=== PATIENT | male | born 1960 | race Caucasian/White ===

== ENCOUNTER 2017-02-10 09:25 | Emergency (ER) | payer BC ==
[2017-02-10 09:34] VITALS: BP 124/76; PULSE 79; RESP 20; TEMP 97.5
--- NOTE | 2017-02-10 10:17 | XR ---
Right knee HISTORY: Right knee pain 3 views of the right knee, no comparisons There is marginal spurring is present especially in the medial compartment and patellofemoral joint w ith joint space loss in the 3 compartments. Alignment and bone mineralization are maintained. Suprapa tellar increased density suggests joint effusion. IMPRESSION: Osteoarthritis.
--- NOTE | 2017-02-10 10:23 | ED ---
Lower Extremity Injury HPI - General Chief Complaint: Extremity Injury, Lower Stated Complaint: rt knee pain Time Seen by Provider: 02/10/17 09:36 Source: patient, RN notes reviewed Mode of arrival: ambulatory Limitations: no limitations - History of Present Illness Initial Comments: 56-year-old male presents emergency Department chief complaint of right knee pain. 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 Patient states that there is minimal swelling states is just very achy states he's been taking ibuprofen 800 mg with minimal relief. Patient denies any redness, fever, chills. Patient states that he has not seen anybody for this injury and has no current orthopedic doctor. Patient offers no other complaints. - Related Data Home Medications Medication Instructions Recorded Confirmed Mirtazapine 30 mg PO HS 07/06/15 02/10/17 Omeprazole [PriLOSEC] 40 mg PO QAM 02/03/16 02/10/17 clonazePAM [KlonoPIN] 1 mg PO BID PRN 02/03/16 02/10/17 Buprenorphine HCl/Naloxone HCl 1 film SL DAILY 03/06/16 02/10/17 [Suboxone 2 mg-0.5 mg Sl Film] Baclofen 10 mg PO BID 02/10/17 02/10/17 Losartan Potassium 100 mg PO BID 02/10/17 02/10/17 Previous Rx's Medication Instructions Recorded Acetaminophen-Codeine 300-30mg 1 tab PO Q4H PRN #20 tablet 02/10/17 [Tylenol #3] methylPREDNISolone [Medrol Dose 4 mg PO DIRECTED #1 pack 02/10/17 Pack] Allergies Allergy/AdvReac Type Severity Reaction Status Date / Time naproxen sodium [From Aleve] Allergy Anaphylaxis Verified 02/10/17 10:05 venom-honey bee Allergy Anaphylaxis Verified 02/10/17 10:05 [bee venom (honey bee)] Review of Systems ROS Statement: Those systems with pertinent positive or pertinent negative responses have been documented in the HPI. ROS Other: All systems not noted in ROS Statement are negative. Past Medical History Past Medical History: COPD, Hypertension Additional Past Medical History / Comment(s): WARTS AROUND RECTUM,EPIGASTRIC PAIN, PAST HX OF COPD, STATES NO RECENT PROBLEMS SINCE QUIT SMOKING , back pain History of Any Multi-Drug Resistant Organisms: None Reported Past Surgical History: Cholecystectomy Additional Past Surgical History / Comment(s): left big toe surgery Past Anesthesia/Blood Transfusion Reactions: No Reported Reaction Past Psychological History: Anxiety, Depression Smoking Status: Former smoker Past Alcohol Use History: None Reported Past Drug Use History: None Reported - Past Family History Mother Family Medical History: Cancer Additional Family Medical History / Comment(s): THROAT Sister(s) Family Medical History: Cancer Additional Family Medical History / Comment(s): LUNG General Exam Limitations: no limitations General appearance: alert, in no apparent distress Head exam: Present: atraumatic, normocephalic, normal inspection Respiratory exam: Present: normal lung sounds bilaterally. Absent: respiratory distress, wheezes, rales, rhonchi, stridor Cardiovascular Exam: Present: regular rate, normal rhythm, normal heart sounds. Absent: systolic murmur, diastolic murmur, rubs, gallop, clicks Extremities exam: Present: other (Right knee there is minimal swelling no erythema no warmth neurovascular intact there is mild discomfort with range of motion mild tenderness over the patella region. Open lesions or sores.) Course Vital Signs 02/10/17 09:31 Temperature 97.5 F L Pulse Rate 79 Respiratory 20 Rate Blood Pressure 124/76 O2 Sat by Pulse 98 Oximetry Medical Decision Making - Medical Decision Making 56-year-old male presented for right knee pain. Patient has no acute injury on x-ray patient's symptoms were consistent with bursitis after kneeling on his knee. Patient be tried on a course of steroids, Tylenol according for pain control. He'll follow-up with orthopedics instrumentation and controls technician Dr. Haines return parameters were discussed. - Radiology Data Radiology results: report reviewed, image reviewed X-ray of the right knee shows no acute fracture or osseous lesion. Disposition Clinical Impression: Right knee pain, Bursitis of knee Disposition: HOME SELF-CARE Condition: Stable Instructions: Knee Pain (ED) Additional Instructions: Please return to the Emergency Department if symptoms worsen or any other concerns. Prescriptions: Acetaminophen-Codeine 300-30mg [Tylenol #3] 1 tab PO Q4H PRN #20 tablet PRN Reason: pain methylPREDNISolone [Medrol Dose Pack] 4 mg PO DIRECTED #1 pack Referrals: Damien Irwin DO [Primary Care Provider] - 1-2 days Time of Disposition: 10:23
== END 2017-02-10 10:27 | disposition home or self-care (01) ==
LOC: EC 09:25
DX: M70.51 Other bursitis of knee, right knee (principal); I10 Essential (primary) hypertension; F41.9 Anxiety disorder, unspecified; F32.9 Major depressive disorder, single episode, unspecified; Z87.891 Personal history of nicotine dependence; Z79.899 Other long term (current) drug therapy; Z88.6 Allergy status to analgesic agent; Z91.030 Bee allergy status; X50.1XXA Overexertion from prolonged static or awkward postures, initial encounter; Y92.69 Other specified industrial and construction area as the place of occurrence of the external cause; Y93.89 Activity, other specified
CPT/HCPCS: 99283

== ENCOUNTER 2017-06-15 09:26 | Emergency (ER) | payer BC, OTHER ==
[2017-06-15 09:30] VITALS: TEMP 97.9
[2017-06-15 10:27] VITALS: BP 109/70; PULSE 73; RESP 20
--- NOTE | 2017-06-15 10:44 | ED ---
General Adult HPI - General Chief complaint: Back Pain/Injury Stated complaint: Flank pain Time Seen by Provider: 06/15/17 09:45 Source: patient, RN notes reviewed Mode of arrival: ambulatory Limitations: no limitations - History of Present Illness Initial comments: Patient 56-year-old male who presents emergency room today with a chief complaint of possible shingles. He does admit that pain consistent with shingles that is had in the past. He admits that he feels it just on the right side. It is not bilateral. Patient states symptoms started last night. Patient denies any other complaints or symptoms. Patient denies any recent fever , chills, shortness of breath, chest pain, abdominal pain, nausea or vomiting, numbness or tingling, dysuria or hematuria, constipation or diarrhea, headaches or visual changes, or any other complaints. - Related Data Home Medications Medication Instructions Recorded Confirmed Mirtazapine 30 mg PO HS 07/06/15 06/15/17 Omeprazole [PriLOSEC] 40 mg PO QAM 02/03/16 06/15/17 clonazePAM [KlonoPIN] 1 mg PO BID PRN 02/03/16 06/15/17 Buprenorphine HCl/Naloxone HCl 1 film SL DAILY 03/06/16 06/15/17 [Suboxone 2 mg-0.5 mg Sl Film] Baclofen 10 mg PO BID PRN 02/10/17 06/15/17 Losartan Potassium 100 mg PO BID 02/10/17 06/15/17 Lisdexamfetamine Dimesylate 30 mg PO QAM 06/15/17 06/15/17 [Vyvanse] Previous Rx's Medication Instructions Recorded Acetaminophen-Codeine 300-30mg 1 each PO Q6H PRN #20 tablet 06/15/17 [Tylenol #3] predniSONE 50 mg PO DAILY #5 tab 06/15/17 valACYclovir HCL [Valtrex] 1,000 mg PO TID #21 tablet 06/15/17 Allergies Allergy/AdvReac Type Severity Reaction Status Date / Time naproxen sodium [From Aleve] Allergy Anaphylaxis Verified 06/15/17 09:48 venom-honey bee Allergy Anaphylaxis Verified 06/15/17 09:48 [bee venom (honey bee)] Review of Systems ROS Statement: Those systems with pertinent positive or pertinent negative responses have been documented in the HPI. ROS Other: All systems not noted in ROS Statement are negative. Past Medical History Past Medical History: COPD, Hypertension Additional Past Medical History / Comment(s): WARTS AROUND RECTUM,EPIGASTRIC PAIN, PAST HX OF COPD, STATES NO RECENT PROBLEMS SINCE QUIT SMOKING , back pain History of Any Multi-Drug Resistant Organisms: None Reported Past Surgical History: Cholecystectomy Additional Past Surgical History / Comment(s): left big toe surgery Past Anesthesia/Blood Transfusion Reactions: No Reported Reaction Past Psychological History: Anxiety, Depression Smoking Status: Former smoker Past Alcohol Use History: None Reported Past Drug Use History: None Reported - Past Family History Mother Family Medical History: Cancer Additional Family Medical History / Comment(s): THROAT Sister(s) Family Medical History: Cancer Additional Family Medical History / Comment(s): LUNG General Exam - General Exam Comments Initial Comments: General: The patient is awake and alert, in no distress, and does not appear acutely ill. Eye: Pupils are equal, round and reactive to light, extra-ocular movements are intact. No nystagmus. There is normal conjunctiva bilaterally. No signs of icterus. Ears, nose, mouth and throat: There are moist mucous membranes and no oral lesions. Neck: The neck is supple, there is no tenderness or JVD. Cardiovascular: There is a regular rate and rhythm. No murmur, rub or gallop is appreciated. Respiratory: Lungs are clear to auscultation, respirations are non-labored, breath sounds are equal. No wheezes, stridor, rales, or rhonchi. Musculoskeletal: Normal ROM, no tenderness. Strength 5/5. Sensation intact. Pulses equal bilaterally 2+. Neurological: A&O x 3. CN II-XII intact, There are no obvious motor or sensory deficits. Coordination appears grossly intact. Speech is normal. Skin: Skin is warm and dry and no rashes or lesions are noted. No rash at this time. Psychiatric: Cooperative, appropriate mood & affect, normal judgment. Limitations: no limitations Course Vital Signs 06/15/17 06/15/17 09:27 10:24 Temperature 97.9 F Pulse Rate 80 73 Respiratory 18 20 Rate Blood Pressure 121/63 109/70 O2 Sat by Pulse 97 96 Oximetry Medical Decision Making - Medical Decision Making Patient denies any other complaints or any other symptoms. He states this feels exactly like she was and he had in the past. He states symptoms started just last night. Patient will be started on antiviral, steroid. Given short prescription of pain medication advised follow-up the family doctor. Advised return if any symptoms increase worsen or for any other concerns. Disposition Clinical Impression: Back pain Disposition: HOME SELF-CARE Condition: Good Instructions: Shingles (ED) Additional Instructions: Please use medication as discussed. Please follow-up with family doctor in the next 2 days of symptoms have not improved. Please return to emergency room if the symptoms increase or worsen or for any other concerns. Prescriptions: Acetaminophen-Codeine 300-30mg [Tylenol #3] 1 each PO Q6H PRN #20 tablet PRN Reason: Pain predniSONE 50 mg PO DAILY #5 tab valACYclovir HCL [Valtrex] 1,000 mg PO TID #21 tablet Referrals: Damien Irwin DO [Primary Care Provider] - 1-2 days Time of Disposition: 10:44
== END 2017-06-15 10:54 | disposition home or self-care (01) ==
LOC: EC 09:26
DX: M54.9 Dorsalgia, unspecified (principal); I10 Essential (primary) hypertension; F32.9 Major depressive disorder, single episode, unspecified; Z87.891 Personal history of nicotine dependence; Z79.891 Long term (current) use of opiate analgesic; Z79.899 Other long term (current) drug therapy; Z88.6 Allergy status to analgesic agent; Z91.030 Bee allergy status
CPT/HCPCS: 99283

== ENCOUNTER 2017-10-06 02:42 | Emergency (ER) | payer OTHER ==
[2017-10-06 03:17] LABS: Appearance,Urine Clear (Clear); Bilirubin,Urine Negative (Negative); Blood,Urine Moderate (Negative); Color,Urine Light Yellow; Glucose,Urine (UA) Negative (Negative); Hyaline Casts,Urine 1 /lpf (0-2); Ketones,Urine Negative (Negative); Leukocyte Esterase,Urine Negative (Negative); Mucus,Urine Rare /hpf; Nitrite,Urine Negative (Negative); PH, Urine 6.5 (5.0-8.0); Protein,Urine Negative (Negative); RBC,Urine 2 /hpf (0-5); Specific Gravity,Urine 1.009 (1.001-1.035); Urobilinogen,Urine <2.0 mg/dL (<2.0); WBC,Urine <1 /hpf (0-5)
[2017-10-06] MEDS ORDERED: SODIUM CHLORIDE 0.9% 1,000 ML IV ONE (03:28)
[2017-10-06] MEDS ORDERED: SODIUM CHLORIDE 0.9% 1,000 ML IV SCH (03:30)
[2017-10-06] MEDS ORDERED: MORPHINE SULFATE 2 MG/ML SYRINGE IVP ONE (03:35)
[2017-10-06] MEDS ORDERED: ONDANSETRON 4 MG/2 ML VIAL IVP STA (03:35)
[2017-10-06 03:57] LABS: Basophils # (A) 0.1 k/uL (0-0.2); Basophils % (A) 1 %; Eosinophils # (A) 0.7 k/uL (0-0.7); Eosinophils % (A) 9 %; HGB 14.3 gm/dL (13.0-17.5); Lymphocytes % (A) 12 %; MCH 29.3 pg (25.0-35.0); MCV 85.9 fL (80.0-100.0); Mean Platelet Volume 6.7; Monocytes # (A) 0.5 k/uL (0-1.0); Monocytes % (A) 6 %; Neutrophils # (A) 5.6 k/uL (1.3-7.7); Neutrophils % (A) 71 %; Platelet Count 265 k/uL (150-450); RBC 4.88 m/uL (4.30-5.90); RDW 13.5 % (11.5-15.5); WBC 7.9 k/uL (3.8-10.6)
--- NOTE | 2017-10-06 03:57 | ED ---
Abdominal Pain HPI - General Source: patient, RN notes reviewed, old records reviewed Mode of arrival: ambulatory Limitations: no limitations <Abby Barajas - Last Filed: 10/06/17 03:51> <Jose Engel - Last Filed: 10/06/17 05:14> - General Chief Complaint: Abdominal Pain Stated Complaint: Kidney stone Time Seen by Provider: 10/06/17 03:10 - History of Present Illness Initial Comments: Patient is a 49-year-old male presents to the emergency Department chief complaint of sudden onset of abdominal pain. He reports it woke him up this evening. Patient states it started around midnight. He reports the pain was more severe and radiating towards his back. Patient states that he has had a history of kidney stones this pain feels similar to his previous kidney stones. Patient states that he has had no notable blood in his urine. Denies any diarrhea. He has had nausea.Patient denies any recent fever, chills, shortness of breath, chest pain,numbness or tingling, dysuria or hematuria, constipation or diarrhea, headaches or visual changes, or any other current symptoms ( Abby Barajas) - Related Data Home Medications Medication Instructions Recorded Confirmed Mirtazapine 30 mg PO HS 07/06/15 10/06/17 Omeprazole [PriLOSEC] 40 mg PO QAM 02/03/16 10/06/17 clonazePAM [KlonoPIN] 1 mg PO BID PRN 02/03/16 10/06/17 Buprenorphine HCl/Naloxone HCl 1 film SL DAILY 03/06/16 10/06/17 [Suboxone 2 mg-0.5 mg Sl Film] Losartan Potassium 100 mg PO BID 02/10/17 10/06/17 Lisdexamfetamine Dimesylate 30 mg PO QAM 06/15/17 10/06/17 [Vyvanse] Previous Rx's Medication Instructions Recorded Acetaminophen with Codeine 1 - 2 tab PO Q6H PRN #15 tab 10/06/17 [Tylenol w/codeine #3] Tamsulosin [Flomax] 0.4 mg PO DAILY #10 cap 10/06/17 Allergies Allergy/AdvReac Type Severity Reaction Status Date / Time naproxen sodium [From Aleve] Allergy Anaphylaxis Verified 06/15/17 09:48 venom-honey bee Allergy Anaphylaxis Verified 06/15/17 09:48 [bee venom (honey bee)] Review of Systems ROS Other: All systems not noted in ROS Statement are negative. <Court Barajasily - Last Filed: 10/06/17 03:51> ROS Other: All systems not noted in ROS Statement are negative. <Jose Engel - Last Filed: 10/06/17 05:14> ROS Statement: Those systems with pertinent positive or pertinent negative responses have been documented in the HPI. Past Medical History Past Medical History: COPD, Hypertension Additional Past Medical History / Comment(s): WARTS AROUND RECTUM,EPIGASTRIC PAIN, PAST HX OF COPD, STATES NO RECENT PROBLEMS SINCE QUIT SMOKING , back pain History of Any Multi-Drug Resistant Organisms: None Reported Past Surgical History: Cholecystectomy Additional Past Surgical History / Comment(s): left big toe surgery Past Anesthesia/Blood Transfusion Reactions: No Reported Reaction Past Psychological History: Anxiety, Depression Smoking Status: Former smoker Past Alcohol Use History: None Reported Past Drug Use History: None Reported - Past Family History Mother Family Medical History: Cancer Additional Family Medical History / Comment(s): THROAT Sister(s) Family Medical History: Cancer Additional Family Medical History / Comment(s): LUNG <Court Barajasily - Last Filed: 10/06/17 03:51> General Exam Limitations: no limitations <Court Barajasily - Last Filed: 10/06/17 03:51> <Jose Engel - Last Filed: 10/06/17 05:14> - General Exam Comments Initial Comments: Well-appearing 57-year-old male. No acute distress. General: Well appearing, well nourished, in no distress. Oriented x 3, normal mood and affect . Ambulating without difficulty. Skin: Good turgor, no rash, unusual bruising or prominent lesions HEENT: Head: Normocephalic, atraumatic, no visible or palpable masses, depressions, or scaring. Eyes: Visual acuity intact, conjunctiva clear, sclera non-icteric, EOM intact, PERRL. Neck: Supple, without lesions, bruits, or adenopathy, thyroid non-enlarged and non-tender Heart: No cardiomegaly or thrills; regular rate and rhythm, no murmur or gallop Lungs: Clear to auscultation Abdomen: Bowel sounds normal, no tenderness, organomegaly, masses, or hernia Back: Spine normal without deformity or tenderness, no CVA tenderness Extremities: No amputations or deformities, cyanosis, edema or varicosities, peripheral pulses intact Musculoskeletal: Normal gait and station. No misalignment, asymmetry, crepitation, defects, tenderness, masses, effusions, decreased range of motion, instability, atrophy or abnormal strength or tone in the head, neck, spine, ribs , pelvis or extremities. Neurologic: CN 2-12 normal. Sensation to pain, touch, and proprioception normal. DTRs normal in upper and lower extremities. No pathologic reflexes. Psychiatric: Oriented X3, intact recent and remote memory, judgment and insight , normal mood and affect. (Abby Barajas) Course <Abby Barajas - Last Filed: 10/06/17 03:51> <Jose Engel - Last Filed: 10/06/17 05:14> Vital Signs 10/06/17 10/06/17 02:46 04:17 Temperature 97.3 F L Pulse Rate 69 70 Respiratory 20 16 Rate Blood Pressure 147/73 131/77 O2 Sat by Pulse 97 96 Oximetry Patient is reassessed at term 5 AM a.m., his pain is resolved, CT abdomen was reviewed it has 4 mm stone at the distal ureter he did show some hydroureter and hydronephrosis, he is pain-free he wants to go home he is requesting for some Tylenol with Codeine and now are prescribed him Flomax 0.4 mg 1 daily for next 3 days. He is advised to come back if pain gets worse and follow up with the urology and Dr. Solis is on today (Jose Engel) Medical Decision Making <Abby Barajas - Last Filed: 10/06/17 03:51> - Lab Data Result diagrams: 10/06/17 03:10 10/06/17 03:10 <Jose Engel - Last Filed: 10/06/17 05:14> - Medical Decision Making 49-year-old male presents emergency Department with diffuse abdominal pain. He reports some nausea as well. Patient states that the abdominal pain radiates towards his back. Urinalysis does show hematuria. KUB and CT abdomen and pelvis without contrast completed. Patient will be given IV fluids and pain medication. Patient was transferred to Dr. engel at 4 AM. (Abby Barajas) - Lab Data Lab Results 10/06/17 10/06/17 10/06/17 Range/Units 02:53 03:10 03:10 WBC 7.9 (3.8-10.6) k/uL RBC 4.88 (4.30-5.90) m/uL Hgb 14.3 (13.0-17.5) gm/dL Hct 42.0 (39.0-53.0) % MCV 85.9 (80.0-100.0) fL MCH 29.3 (25.0-35.0) pg MCHC 34.0 (31.0-37.0) g/dL RDW 13.5 (11.5-15.5) % Plt Count 265 (150-450) k/uL Neutrophils % 71 % Lymphocytes % 12 % Monocytes % 6 % Eosinophils % 9 % Basophils % 1 % Neutrophils # 5.6 (1.3-7.7) k/uL Lymphocytes # 1.0 (1.0-4.8) k/uL Monocytes # 0.5 (0-1.0) k/uL Eosinophils # 0.7 (0-0.7) k/uL Basophils # 0.1 (0-0.2) k/uL Sodium 144 (137-145) mmol/L Potassium 4.7 (3.5-5.1) mmol/L Chloride 104 (98-107) mmol/L Carbon Dioxide 25 (22-30) mmol/L Anion Gap 15 mmol/L BUN 28 H (9-20) mg/dL Creatinine 0.91 (0.66-1.25) mg/dL Est GFR (CKD-EPI)AfAm >90 (>60 ml/min/1.73 sqM) Est GFR (CKD-EPI)NonAf >90 (>60 ml/min/1.73 sqM) Glucose 99 (74-99) mg/dL Calcium 9.4 (8.4-10.2) mg/dL Total Bilirubin 0.3 (0.2-1.3) mg/dL AST 27 (17-59) U/L ALT 34 (21-72) U/L Alkaline Phosphatase 120 (38-126) U/L Total Protein 7.3 (6.3-8.2) g/dL Albumin 4.2 (3.5-5.0) g/dL Amylase 83 (30-110) U/L Lipase 86 (23-300) U/L Urine Color Light Yellow Urine Appearance Clear (Clear) Urine pH 6.5 (5.0-8.0) Ur Specific Lena 1.009 (1.001-1.035) Urine Protein Negative (Negative) Urine Glucose (UA) Negative (Negative) Urine Ketones Negative (Negative) Urine Blood Moderate H (Negative) Urine Nitrite Negative (Negative) Urine Bilirubin Negative (Negative) Urine Urobilinogen <2.0 (<2.0) mg/dL Ur Leukocyte Esterase Negative (Negative) Urine RBC 2 (0-5) /hpf Urine WBC <1 (0-5) /hpf Hyaline Casts 1 (0-2) /lpf Urine Mucus Rare H (None) /hpf Disposition <Abby Barajas - Last Filed: 10/06/17 03:51> Is patient prescribed a controlled substance at d/c from ED?: Yes When asked, does pt state using other controlled substances?: No If prescribed controlled substance>3 days was MAPS reviewed?: No If opioid is for acute pain is fill amount 7 days or less?: No If Rx opioid, was Start Talking consent form obtained?: No <Jose Engel - Last Filed: 10/06/17 05:14> Clinical Impression: Hydroureter, Hydronephrosis Disposition: HOME SELF-CARE Condition: Good Instructions: Kidney Stones (ED) Prescriptions: Acetaminophen with Codeine [Tylenol w/codeine #3] 1 - 2 tab PO Q6H PRN #15 tab PRN Reason: Pain Tamsulosin [Flomax] 0.4 mg PO DAILY #10 cap Referrals: Damien Irwin DO [Primary Care Provider] - 1-2 days
[2017-10-06 04:18] VITALS: RESP 16
--- NOTE | 2017-10-06 04:18 | CT ---
EXAMINATION TYPE: CT abdomen pelvis wo con DATE OF EXAM: 10/06/2017 COMPARISON: 2010 HISTORY: Mid to Lower abd pain, r/o stones CT DLP: 881 mGycm Automated exposure control for dose reduction was used. TECHNIQUE: Helical acquisition of images was performed from the lung bases through the pelvis. FINDINGS: There is some mild linear density in the lingula left upper lobe. The other lung osorio are clear. Th ere is no pleural effusion. Heart size is normal. There is no pericardial effusion. Liver spleen pancreas appear normal. There are clips from cholecystectomy. Bile ducts are not dilated . There is no adrenal mass. Kidneys have normal size. There is left-sided hydronephrosis and hydrourete r. Left ureter is enlarged down to the ureterovesical junction. There is a 4 mm calculus in the depen dent dilated distal left ureter. This does not appear to be in a position to obstruct the ureter. The bladder distends smoothly. The appendix appears normal. There is left-sided perinephric edema. Right ureter is not dilated. I see no intestinal wall thickening. There are no dilated loops. There is no ascites. The bony structures appear intact. IMPRESSION: MINIMAL LINGULA SUBSEGMENTAL ATELECTASIS. LEFT-SIDED HYDRONEPHROSIS AND HYDROURETER WITH SMALL CALCULUS WITHIN THE DEPENDENT DILATED DISTAL LEF T URETER. IT IS NOT CLEAR IF THIS CALCULUS IS OBSTRUCTING THE URETER AT THIS TIME. MINIMAL ATHEROSCLE ROTIC VASCULAR DISEASE. Obstruction appears new compared to old exam.
--- NOTE | 2017-10-06 04:19 | XR ---
EXAMINATION TYPE: XR KUB DATE OF EXAM: 10/06/2017 COMPARISON: 07/06/2015 HISTORY: Abdominal pain TECHNIQUE: 2 views FINDINGS: There is no sign of intestinal obstruction or pneumoperitoneum. There are clips from cholec ystectomy. Fecal pattern is normal. There is no evidence of a mass. There are no pathologic calcifica tions over the kidneys. IMPRESSION: Nonacute abdomen. No change compared to old exam.
[2017-10-06 04:29] LABS: ALT 34 U/L (21-72); AST 27 U/L (17-59); Albumin 4.2 g/dL (3.5-5.0); Alkaline Phosphatase 120 U/L (38-126); Amylase 83 U/L (30-110); Anion Gap 15 mmol/L; Blood Urea Nitrogen 28 mg/dL (9-20); Calcium 9.4 mg/dL (8.4-10.2); Carbon Dioxide 25 mmol/L (22-30); Chloride 104 mmol/L (98-107); Glucose 99 mg/dL (74-99); Lipase 86 U/L (23-300); Potassium 4.7 mmol/L (3.5-5.1); Sodium 144 mmol/L (137-145); Total Bilirubin 0.3 mg/dL (0.2-1.3); Total Protein 7.3 g/dL (6.3-8.2)
[2017-10-06 05:18] VITALS: BP 149/76; PULSE 97; TEMP 98
== END 2017-10-06 05:19 | disposition home or self-care (01) ==
LOC: EC 02:42
DX: N13.2 Hydronephrosis with renal and ureteral calculous obstruction (principal); I10 Essential (primary) hypertension; F41.9 Anxiety disorder, unspecified; F32.9 Major depressive disorder, single episode, unspecified; Z90.49 Acquired absence of other specified parts of digestive tract; Z88.6 Allergy status to analgesic agent; Z91.030 Bee allergy status; Z79.891 Long term (current) use of opiate analgesic; Z79.899 Other long term (current) drug therapy; Z87.891 Personal history of nicotine dependence
CPT/HCPCS: 99285; 96374; 96375; 96361; 36415; 80053; 82150; 83690; 85025; 81001; 74018; 74176; J2405; J2270

== ENCOUNTER 2017-12-23 17:05 | Inpatient (IN) | payer OTHER ==
--- NOTE | 2017-12-23 18:10 | XR ---
EXAMINATION TYPE: XR chest 2V DATE OF EXAM: 12/23/2017 COMPARISON: 03/06/2016 HISTORY: Hemoptysis TECHNIQUE: Frontal and lateral views of the chest are obtained. FINDINGS: There is some infiltrate at the right pulmonary hilum extending to the right lateral chest wall in the superior segment right lower lobe. The left lung is clear. There is no heart failure. He art size is normal. There are old left-sided healed rib fractures. Mediastinum is normal. IMPRESSION: There is new infiltrate at the right pulmonary hilum extending into the right lower lobe superior segment. Tumor is possible. Follow-up is recommended.
[2017-12-23] MEDS ORDERED: RX INFO: IV CONTRAST WAS GIVEN 1 EACH MISC MISCELLANE PRN (18:20)
[2017-12-23] MEDS ORDERED: SODIUM CHLORIDE 0.9% 1,000 ML IV STA (18:23)
[2017-12-23 18:50] LABS: Basophils % (A) 1 %; Eosinophils # (A) 0.4 k/uL (0-0.7); Eosinophils % (A) 5 %; HCT 36.6 % (39.0-53.0); HGB 12.3 gm/dL (13.0-17.5); Lymphocytes # (A) 1.5 k/uL (1.0-4.8); Lymphocytes % (A) 23 %; MCH 28.3 pg (25.0-35.0); MCHC 33.6 g/dL (31.0-37.0); MCV 84.3 fL (80.0-100.0); Mean Platelet Volume 6.4; Monocytes # (A) 0.5 k/uL (0-1.0); Monocytes % (A) 7 %; Neutrophils # (A) 4.3 k/uL (1.3-7.7); Neutrophils % (A) 63 %; Platelet Count 267 k/uL (150-450); RBC 4.34 m/uL (4.30-5.90); RDW 13.6 % (11.5-15.5); WBC 6.8 k/uL (3.8-10.6)
[2017-12-23 18:56] LABS: Albumin 3.6 g/dL (3.5-5.0); Calcium 8.6 mg/dL (8.4-10.2); Magnesium 1.9 mg/dL (1.6-2.3); Potassium 4.4 mmol/L (3.5-5.1); Total Bilirubin 0.3 mg/dL (0.2-1.3); Total Protein 6.8 g/dL (6.3-8.2)
[2017-12-23 19:00] LABS: Partial Thromboplastin Time 25.1 sec (22.0-30.0); Prothrombin Time 9.6 sec (9.0-12.0)
--- NOTE | 2017-12-23 19:24 | CT ---
EXAMINATION TYPE: CT chest w con DATE OF EXAM: 12/23/2017 COMPARISON: None HISTORY: Coughing up blood xfew days. CT DLP: 368.4 mGycm Automated exposure control for dose reduction was used. CONTRAST: CT scan of the chest is performed with IV Contrast, patient injected with 100ml mL of Isovue 300. FINDINGS: There is a bilobed 5 x 3 cm mass at the right pulmonary hilum. There is enlarged paratracheal lymph n ode that measures 2 cm. There is some spiculation of the margins. There is some patchy airspace infil trate in the periphery of the right midlung. This is in the posterior segment right upper lobe. There is some narrowing of the right lower lobe bronchus adjacent to the mass. There is enlarged subcarina l 2.5 cm lymph node. Thoracic aorta is intact. Heart size is normal. There is no pericardial effusion. I see no filling de fects in the pulmonary arteries. There is anterior spurring at C6-7. IMPRESSION: Bilobed right hilar mass with encroachment on the right lower lobe bronchus is suggestiv e of primary malignancy. Mediastinal adenopathy. Mild patchy peripheral right upper lobe infiltrate.
--- NOTE | 2017-12-23 20:05 | ED ---
General Adult HPI - General Source: patient, RN notes reviewed Mode of arrival: ambulatory Limitations: no limitations <Tucker Miranda - Last Filed: 12/23/17 20:12> <Siva Hercules - Last Filed: 12/24/17 10:20> - General Chief complaint: Upper Respiratory Infection Stated complaint: hemoptysis Time Seen by Provider: 12/23/17 17:40 - History of Present Illness Initial comments: 57-year-old male presents to the emergency department for a chief complaint of hemoptysis 4 days. Patient has been coughing up tablespoon-sized amounts of blood multiple times per day for the past 4 days. Patient denies any shortness of breath but states he has felt like he has been wheezing. Patient denies cough besides for when he experiences the hemoptysis intermittently throughout the day. Patient has a history of smoking but did quit 2 years ago. Patient does have a history of COPD. Patient states he has inhalers at home but does not use them. Patient states he does not feel as if he needs a breathing treatment at this time. Patient denies fevers or chills at home. Patient has no other complaints at this time including chest pain, abdominal pain, nausea or vomiting, headache, or visual changes. (Tucker Miranda) - Related Data Home Medications Medication Instructions Recorded Confirmed Mirtazapine 30 mg PO HS 07/06/15 12/23/17 Omeprazole [PriLOSEC] 20 mg PO DAILY 02/03/16 12/23/17 clonazePAM [KlonoPIN] 1 mg PO BID PRN 02/03/16 12/23/17 Buprenorphine HCl/Naloxone HCl 1 film SL BID 03/06/16 12/23/17 [Suboxone 2 mg-0.5 mg Sl Film] Losartan Potassium 100 mg PO BID 02/10/17 12/23/17 FLUoxetine HCL [PROzac] 20 mg PO DAILY 12/23/17 12/23/17 Ibuprofen 800 mg PO DAILY 12/23/17 12/23/17 guaiFENesin [Mucinex] 1,200 mg PO BID 12/23/17 12/23/17 Allergies Allergy/AdvReac Type Severity Reaction Status Date / Time naproxen sodium [From Aleve] Allergy Anaphylaxis Verified 12/23/17 17:36 venom-honey bee Allergy Anaphylaxis Verified 12/23/17 17:36 [bee venom (honey bee)] Review of Systems ROS Other: All systems not noted in ROS Statement are negative. <Tucker Miranda P - Last Filed: 12/23/17 20:12> ROS Other: All systems not noted in ROS Statement are negative. <Siva Hercules D - Last Filed: 12/24/17 10:20> ROS Statement: Those systems with pertinent positive or pertinent negative responses have been documented in the HPI. Past Medical History Past Medical History: COPD, Hypertension Additional Past Medical History / Comment(s): back pain History of Any Multi-Drug Resistant Organisms: None Reported Past Surgical History: Cholecystectomy Additional Past Surgical History / Comment(s): left big toe surgery Past Anesthesia/Blood Transfusion Reactions: No Reported Reaction Past Psychological History: Anxiety, Depression Smoking Status: Former smoker Past Alcohol Use History: None Reported Past Drug Use History: None Reported - Past Family History Mother Family Medical History: Cancer Additional Family Medical History / Comment(s): THROAT Sister(s) Family Medical History: Cancer Additional Family Medical History / Comment(s): LUNG <Tucker Miranda P - Last Filed: 12/23/17 20:12> General Exam Limitations: no limitations General appearance: alert, in no apparent distress Head exam: Present: atraumatic, normocephalic, normal inspection Eye exam: Present: normal appearance. Absent: scleral icterus, conjunctival injection ENT exam: Present: normal exam, mucous membranes moist Neck exam: Present: normal inspection, full ROM. Absent: tenderness, meningismus, lymphadenopathy Respiratory exam: Present: normal lung sounds bilaterally, wheezes (mild wheeze in L[place], no wheezing noted in lower lung osorio). Absent: respiratory distress, rales, rhonchi, stridor Cardiovascular Exam: Present: regular rate, normal rhythm, normal heart sounds. Absent: systolic murmur, diastolic murmur, rubs, gallop, clicks GI/Abdominal exam: Present: soft, normal bowel sounds. Absent: distended, tenderness, guarding, rebound, rigid <Tucker Miranda P - Last Filed: 12/23/17 20:12> Vital Signs 12/23/17 12/23/17 17:32 21:00 Temperature 98 F 97 F L Pulse Rate 79 82 Respiratory 18 18 Rate Blood Pressure 128/84 154/87 O2 Sat by Pulse 98 98 Oximetry Medical Decision Making - Lab Data Result diagrams: 12/23/17 18:30 12/23/17 18:30 <Tucker Miranda - Last Filed: 12/23/17 20:12> - Lab Data Result diagrams: 12/23/17 18:30 12/23/17 18:30 <Siva Hercules - Last Filed: 12/24/17 10:20> - Medical Decision Making 57-year-old male presents to the emergency department for a chief complaint of hemoptysis 4 days. Patient denies shortness of breath or persistent cough but states he has had an intermittent cough with hemoptysis. Patient states they are about tablespoon-sized amounts of blood. Patient denies any shortness of breath or difficulty breathing. Patient denies any fevers or chills at home. Patient denies any weight loss. On exam, patient has a left upper lung wheeze, no additional wheezing noted bilaterally. Patient does not appear in distress. He is interactive and communicative. Patient has a temp of 98 with a pulse rate of 79 in the emergency Department. O2 sat 98% on room air. CBC is unremarkable as well as CMP. Chest x-ray shows that there is a new infiltrate at the right pulmonary hilum extending into the right lower lobe superior segment. Tumor is possible. There is a bilobed right hilar mass with encroachment on the right lower lobe bronchus suggestive of a primary malignancy. There is also mild patchy peripheral right upper lobe infiltrate. It is possible that this could be a pneumonia so patient will be given a dose of antibiotics here in the emergency department. He will be admitted for oncology consult and monitor symptoms. At this point patient has no fevers or evidence of sepsis. (Tucker Miranda) - Lab Data Lab Results 12/23/17 12/23/17 12/23/17 Range/Units 18:30 18:30 18:30 WBC 6.8 (3.8-10.6) k/uL RBC 4.34 (4.30-5.90) m/uL Hgb 12.3 L (13.0-17.5) gm/dL Hct 36.6 L (39.0-53.0) % MCV 84.3 (80.0-100.0) fL MCH 28.3 (25.0-35.0) pg MCHC 33.6 (31.0-37.0) g/dL RDW 13.6 (11.5-15.5) % Plt Count 267 (150-450) k/uL Neutrophils % 63 % Lymphocytes % 23 % Monocytes % 7 % Eosinophils % 5 % Basophils % 1 % Neutrophils # 4.3 (1.3-7.7) k/uL Lymphocytes # 1.5 (1.0-4.8) k/uL Monocytes # 0.5 (0-1.0) k/uL Eosinophils # 0.4 (0-0.7) k/uL Basophils # 0.0 (0-0.2) k/uL PT 9.6 (9.0-12.0) sec INR 1.0 (<1.2) APTT 25.1 (22.0-30.0) sec Sodium 138 (137-145) mmol/L Potassium 4.4 (3.5-5.1) mmol/L Chloride 106 (98-107) mmol/L Carbon Dioxide 27 (22-30) mmol/L Anion Gap 5 mmol/L BUN 25 H (9-20) mg/dL Creatinine 1.07 (0.66-1.25) mg/dL Est GFR (CKD-EPI)AfAm 89 (>60 ml/min/1.73 sqM) Est GFR (CKD-EPI)NonAf 77 (>60 ml/min/1.73 sqM) Glucose 79 (74-99) mg/dL Calcium 8.6 (8.4-10.2) mg/dL Magnesium 1.9 (1.6-2.3) mg/dL Total Bilirubin 0.3 (0.2-1.3) mg/dL AST 21 (17-59) U/L ALT 30 (21-72) U/L Alkaline Phosphatase 106 (38-126) U/L Total Protein 6.8 (6.3-8.2) g/dL Albumin 3.6 (3.5-5.0) g/dL Disposition Is patient prescribed a controlled substance at d/c from ED?: No Time of Disposition: 20:06 <Tucker Miranda P - Last Filed: 12/23/17 20:12> <Siva Hercules - Last Filed: 12/24/17 10:20> Clinical Impression: Primary lung cancer Disposition: ADMITTED IP TO THIS HOSP Condition: Good Addendum entered and electronically signed by Tucker Miranda PA-C 12/23/17 21 :00: EKG shows a normal sinus rhythm with a ventricular rate of 76, AR interval 174, QRS duration 90
[2017-12-23] MEDS ORDERED: NALOXONE 0.4 MG/ML 1 ML VIAL IV PRN (20:06)
[2017-12-23] MEDS ORDERED: cefTRIAXone IN SWFI 1,000 MG/10 ML SYRINGE IVP STA (20:12)
[2017-12-23] MEDS ORDERED: AZITHROMYCIN 500 MG in SODIUM CHLORIDE 0.9% 250 ML IVPB STA (20:12)
[2017-12-23] MEDS: clonazePAM 1 MG TAB PO PRN (20:56)
[2017-12-23] MEDS: MIRTAZAPINE 15 MG TAB PO SCH ×2 (20:57→22:15)
[2017-12-23] MEDS: NALOXONE HCL SL SCH (22:10)
[2017-12-23] MEDS: [UNRECOGNIZED DRUG - OTHER] SL SCH (22:10)
[2017-12-23] MEDS: BUPRENORPHINE HCL SL SCH (22:10)
[2017-12-23] MEDS: LOSARTAN 50 MG TAB PO SCH (22:24)
[2017-12-23] MEDS: SODIUM CHLORIDE 0.9% 1,000 ML IV SCH (22:24)
[2017-12-23] MEDS: guaiFENesin 600 MG TABLET.ER PO SCH (22:24)
[2017-12-23] MEDS ORDERED: ACETAMINOPHEN TAB 325 MG TAB PO PRN (23:09)
[2017-12-23] MEDS ORDERED: IPRATROPIUM-ALBUTEROL 3 ML NEB INHALATION PRN (23:50)
[2017-12-23] MEDS ORDERED: HYDROcodone/APAP 5-325MG 1 EACH TAB PO PRN (23:50)
[2017-12-23] MEDS ORDERED: ALPRAZolam 0.25 MG TAB PO PRN (23:50)
[2017-12-23] MEDS ORDERED: TEMAZEPAM 15 MG CAP PO PRN (23:50)
--- NOTE | 2017-12-24 06:57 | HP ---
HISTORY AND PHYSICAL CHIEF COMPLAINTS: Hemoptysis. HISTORY OF PRESENT ILLNESS: This 57-year-old gentleman with a past medical history of COPD, hypertension, history of back pain, history of anxiety, depression being followed by Dr. Damien Irwin in the outpatient setting is complaining of hemoptysis. The patient had hemoptysis for 4 days. The patient coughing up tablespoon sized amount of blood for the last 4 days. The patient did not have any shortness of breath. Occasional wheezing also noted. The patient also had some cough also. The patient came to [facility] and admitted for further evaluation and treatment. A chest CT was done which showed a bilobed right hilar mass with encroachment in the right lower lobe bronchus suggestive of primary malignancy, mediastinal lymph node was noted and mild patchy peripheral right upper lobe infiltrate was also noted. Patient admitted for evaluation and treatment. There is no history of any fever, rigors or chills. No history of headache, loss of consciousness or seizures at this time. PAST MEDICAL HISTORY: History of COPD, history of hypertension, back pain, cholecystectomy, anxiety, depression. MEDICATIONS: Medications prior to admission include: 1. Mucinex 1200 mg p.o. b.i.d. 2. Klonopin 1 mg b.i.d. p.r.n. 3. Prilosec 20 mg p.o. daily. 4. Remeron 30 mg at bedtime. 5. Losartan 100 mg p.o. b.i.d. 6. Ibuprofen 800 mg p.o. daily. 7. Prozac 20 mg daily. 8. Suboxone 2 mg/0.5 sublingual film one b.i.d.. ALLERGIES: NAPROSYN and BEE VENOM. FAMILY HISTORY: History of throat cancer. SOCIAL HISTORY: Previous history of smoking. No history of current smoking or alcohol intake. REVIEW OF SYSTEMS: ENT: No diminished hearing or diminished vision. CARDIOVASCULAR SYSTEM: No angina. RESPIRATORY SYSTEM: As mentioned earlier. GI: No nausea. : No dysuria. NERVOUS SYSTEM: No numbness or weakness. ALLERGY/IMMUNOLOGY: No asthma. MUSCULOSKELETAL: As mentioned earlier. HEMATOLOGY/ONCOLOGY: As mentioned earlier. ENDOCRINE: No history of diabetes or hypothyroidism. CONSTITUTIONAL: As mentioned earlier. DERMATOLOGY: Negative. RHEUMATOLOGY: Negative. PSYCHIATRY: As mentioned earlier. PHYSICAL EXAMINATION: The patient is alert and oriented x3. Pulse 79, blood pressure 128/84, respirations 16, temperature 97.9, pulse ox 98% on room air. HEENT: Conjunctivae normal. Oral mucosa moist. Neck is no jugular venous distention. No carotid bruit. No lymph nodes enlargement. CARDIOVASCULAR: S1 and S2 muffled. No S3, no S4. RESPIRATORY: Breath sounds diminished at the bases. Bilateral scattered rhonchi and crackles. ABDOMEN: Soft, nontender. No mass palpable. LEGS: No edema, no swelling. NERVOUS SYSTEM: Higher functions as mentioned earlier. Moves all 4 limbs. No focal motor or sensory deficits. LYMPHATICS: No lymphadenopathy of the neck, axillae or groin. SKIN: No ulcer, rash or bleeding. JOINTS: No active deforming arthropathy. LABS: Labs are at this time shows WBC 6.8, hemoglobin 12.3. BUN is 25. ASSESSMENT: 1. Hemoptysis for evaluation, possible bronchogenic malignancy. 2. Right hilar mass bilobed with possibly bronchogenic malignancy. 3. Chronic obstructive pulmonary disease acute exacerbation. 4. Right upper lobe infiltrate, possible pneumonia, possible obstructive. 5. History of cholecystectomy. 6. History of chronic obstructive pulmonary disease. 7. History of hypertension. 8. History of back pain. 9. Anxiety, depression. 10.Remote history of nicotine dependence. RECOMMENDATIONS AND DISCUSSION: This 57-year-old gentleman presented with multiple complex medical issues, we will monitor the patient closely. Continue the current medications. Continue symptomatic treatment. Will initiate broad-spectrum antibiotics and as well as bronchodilators and symptomatic treatment and will also get consult with Dr. Mustafa for evaluation for possible bronchoscopy and biopsy. Prognosis guarded because of multiple complex medical issues. Further recommendations will follow. Home medications will be continued. DVT prophylaxis. Guarded prognosis because of multiple complex medical issues. Further recommendations to follow. A copy of dictation forwarded to Dr. Damien Irwin who is the primary physician. MMODL / IJN: [id number] /
[2017-12-24] MEDS: IPRATROPIUM-ALBUTEROL 3 ML NEB INHALATION SCH ×3 (07:59→18:44)
[2017-12-24] MEDS: SODIUM CHLORIDE 0.9% 1,000 ML IV SCH ×2 (08:11→18:05)
[2017-12-24] MEDS: PANTOPRAZOLE 40 MG TABLET PO SCH (08:18)
[2017-12-24] MEDS: LOSARTAN 50 MG TAB PO SCH ×2 (08:18→21:56)
[2017-12-24] MEDS: FLUoxetine HCL 20 MG CAP PO SCH (08:18)
[2017-12-24] MEDS: guaiFENesin 600 MG TABLET.ER PO SCH ×2 (08:18→21:56)
[2017-12-24] MEDS: NALOXONE HCL SL SCH ×2 (08:19→20:59)
[2017-12-24] MEDS: BUPRENORPHINE HCL SL SCH ×2 (08:19→20:59)
[2017-12-24] MEDS: [UNRECOGNIZED DRUG - OTHER] SL SCH ×2 (08:19→20:59)
[2017-12-24] MEDS: HEPARIN SODIUM,PORCINE 5,000 UNIT/ML 1 ML VIAL SQ SCH ×3 (08:20→20:59)
[2017-12-24] MEDS: IBUPROFEN 800 MG TAB PO SCH (09:20)
[2017-12-24] MEDS: cefTRIAXone IN SWFI 1,000 MG/10 ML SYRINGE IVP SCH (12:31)
[2017-12-24 13:16] LABS: ALT 32 U/L (21-72); AST 20 U/L (17-59); Albumin 3.5 g/dL (3.5-5.0); Alkaline Phosphatase 110 U/L (38-126); Anion Gap 4 mmol/L; Blood Urea Nitrogen 16 mg/dL (9-20); Calcium 8.4 mg/dL (8.4-10.2); Carbon Dioxide 28 mmol/L (22-30); Chloride 107 mmol/L (98-107); Glucose 83 mg/dL (74-99); Potassium 4.3 mmol/L (3.5-5.1); Sodium 139 mmol/L (137-145); Total Bilirubin 0.4 mg/dL (0.2-1.3); Total Protein 6.5 g/dL (6.3-8.2)
[2017-12-24] MEDS: SYMBICORT 160-4.5 MCG INHALER INHALATION SCH ×2 (13:51→18:44)
--- NOTE | 2017-12-24 14:02 | P.CNPUL ---
History of Present Illness Consult date: 12/24/17 Reason for consult: abnormal CXR/CT Chief complaint: Hemoptysis, abnormal chest x-ray/CAT scan History of present illness: Pulmonary consultation dated 12/24/2017 This is a 57-year-old male who presents to the emergency department with complaints of hemoptysis. The patient apparently has had 4 or 5 episodes of hemoptysis over the last 3 or 4 days. The patient states that he is coughing up bright red blood and dark blood. It's about the size of the neck all may be a bit larger. The patient states that he has not had any further episodes today. He was seen in the emergency department and had a chest x-ray was suggestive of possible mass or infiltrate in the right midlung. The patient is a heavy smoker having smoked for about 35 years. He quit about 2 and half years ago. A CAT scan was ordered and showed a mass in the right chest certainly bronchogenic carcinoma based on the report. The patient will eventually need bronchoscopy. We tried to get the patient on the [facility] scheduled today but because of the limited time slots and availability of nurses and anesthesiologist last nurse [employer]ivist [employer], we were not allowed to put the patient on the schedule. We will bring him back next week for an outpatient procedure. He denies any shortness of breath chest tightness wheezing cough fever chills nausea vomiting or diarrhea. No chest pain or chest discomfort. The patient also has a history of hypertension. Review of Systems A 14 point review of system is positive for hemoptysis. He denies other complaints such as shortness of breath chest tightness wheezing phlegm production fever chills nausea vomiting diarrhea and chest pain. Past Medical History Past Medical History: COPD, Hypertension Additional Past Medical History / Comment(s): back pain, History of Any Multi-Drug Resistant Organisms: None Reported Past Surgical History: Cholecystectomy Additional Past Surgical History / Comment(s): left big toe surgery-has plate, egd Past Anesthesia/Blood Transfusion Reactions: No Reported Reaction Smoking Status: Former smoker - Past Family History Mother Family Medical History: Cancer Additional Family Medical History / Comment(s): THROAT Sister(s) Family Medical History: Cancer Additional Family Medical History / Comment(s): LUNG Medications and Allergies Home Medications Medication Instructions Recorded Confirmed Type Mirtazapine 30 mg PO HS 07/06/15 12/23/17 History Omeprazole [PriLOSEC] 20 mg PO DAILY 02/03/16 12/23/17 History clonazePAM [KlonoPIN] 1 mg PO BID PRN 02/03/16 12/23/17 History Buprenorphine HCl/Naloxone HCl 1 film SL BID 03/06/16 12/23/17 History [Suboxone 2 mg-0.5 mg Sl Film] Losartan Potassium 100 mg PO BID 02/10/17 12/23/17 History FLUoxetine HCL [PROzac] 20 mg PO DAILY 12/23/17 12/23/17 History Ibuprofen 800 mg PO DAILY 12/23/17 12/23/17 History guaiFENesin [Mucinex] 1,200 mg PO BID 12/23/17 12/23/17 History Allergies Allergy/AdvReac Type Severity Reaction Status Date / Time naproxen sodium [From Aleve] Allergy Anaphylaxis Verified 12/23/17 17:36 venom-honey bee Allergy Anaphylaxis Verified 12/23/17 17:36 [bee venom (honey bee)] Physical Exam Osteopathic Statement: *. No significant issues noted on an osteopathic structural exam other than those noted in the History and Physical/Consult. Vitals: Vital Signs Temp Pulse Pulse Resp BP BP Pulse Ox 12/24/17 12:10 68 12/24/17 11:58 64 12/24/17 08:23 16 12/24/17 08:22 98.1 F 76 16 119/82 96 12/24/17 01:26 98.2 F 78 16 118/70 95 12/24/17 00:10 16 12/23/17 21:45 97.9 F 79 16 128/84 98 12/23/17 21:00 97 F L 82 18 154/87 98 12/23/17 17:32 98 F 79 18 128/84 98 Intake and Output 12/23/17 12/24/17 12/24/17 22:59 06:59 14:59 Intake Total 1500 Balance 1500 Intake: Intake, IV Titration 1000 Amount Sodium Chloride 0.9% 1, 1000 000 ml @ 999 mls/hr IV . Q1H1M STA Rx#:[id number] Oral 500 Other: Voiding Method Toilet # Voids 3 Weight 83.915 kg No acute distress, oriented 3. HEENT examination is grossly unremarkable. Mucous membranes are moist. No oral lesions. Neck supple. Full range of motion. No adenopathy thyromegaly or neck vein distention. Cardiovascular examination reveals regular rhythm rate. S1-S2 normal. No S3 or S4. No discernible murmur noted. Lungs reveal mostly clear breath sounds. There is no wheezes in the posterior chest area on the right side which corresponds to the mass noted on computed tomography scan. It's an isolated wheeze. There is no rhonchi or crackles. Breath sounds are otherwise equal bilaterally. Abdomen soft bowel sounds are heard. No masses or tenderness. Extremities are intact. No cyanosis clubbing or edema. Skin is without rash or lesion. Neurologic examination is brief but nonfocal. Results - Laboratory Findings CBC and BMP: 12/23/17 18:30 12/24/17 12:53 PT/INR, D-dimer PT 9.6 sec (9.0-12.0) 12/23/17 18:30 INR 1.0 (<1.2) 12/23/17 18:30 Abnormal lab findings: Abnormal Labs 12/23/17 12/23/17 18:30 18:30 Hgb 12.3 L Hct 36.6 L BUN 25 H - Diagnostic Findings Chest x-ray: report reviewed, image reviewed CT scan - chest: report reviewed, image reviewed (X-rays, labs and medications are all reviewed. CAT scan is suspicious for bronchogenic carcinoma.) Assessment and Plan Assessment: Assessment Lung mass, right chest, most certainly bronchogenic carcinoma based on the patient's CAT scan results. Possible underlying COPD although the patient denies any breathing issues Hemoptysis, likely related to the mass in the chest and bloating into or irritating the bronchus Previous heavy tobacco use although the patient quit smoking 2 years ago. History of anxiety and depression History of chronic back pain Plan: Plan dated 12/24/2017 We attempted to get the patient on the bronch. schedule. Because he was not emergent and not currently having hemoptysis, we were not given a slot. There were no nurses and/or nurse [employer] or anesthesiologist that were available for this procedure. In addition, there is some question as to when the patient ate last. He may have had breakfast this morning. He did have coffee. Anyway , we will get him scheduled for an outpatient procedure early next week. Additional recommendations and suggestions are forthcoming. Time with Patient: Greater than 30
--- NOTE | 2017-12-24 15:00 | CT ---
EXAMINATION TYPE: CT abdomen pelvis w con DATE OF EXAM: 12/24/2017 COMPARISON: CT abdomen and pelvis October 06, 2017 HISTORY: New onset Lung Cancer. CT DLP: 1057 mGycm, Automated Exposure Control for Dose Reduction was Utilized. CONTRAST: CT scan of the abdomen and pelvis is performed without oral but with IV Contrast, patient injected wi th 100ml mL of Isovue M300. FINDINGS: LUNG BASES: There is patchy bibasilar linear scarring and/or atelectasis. LIVER/GB: Liver is diffusely low dense consistent with fatty infiltration. Cholecystectomy clips are redemonstrated. PANCREAS: No significant abnormality is seen. SPLEEN: No significant abnormality is seen. ADRENALS: No suspicious adrenal masses are noted. KIDNEYS: There is persistent 3 mm calculus in distal left ureter axial image 76 not causing significa nt hydronephrosis. Portions of the ureter are mildly dilated other portions are unremarkable. BOWEL: Gas-filled Appendix is felt within normal limits medially from base of cecum. PROSTATE/SEMINAL VESICLES: Heterogeneous prostate gland is upper limits of normal in size. LYMPH NODES: No greater than 1cm abdominal or pelvic lymph nodes are appreciated. OSSEOUS STRUCTURES: Mild to moderate disc space narrowing with endplate sclerosis L3-L4 level is pres ent. Moderate to severe disc space narrowing with endplate sclerosis L5-S1 level is noted. OTHER: There is mild to moderate mixed plaque in the aorta extending into branch vessels IMPRESSION: No suspicious masses or adenopathy to suggest metastatic disease.
--- NOTE | 2017-12-24 18:13 | PN ---
PROGRESS NOTE DATE OF SERVICE: 12/24/2017. INTERVAL HISTORY: This 57-year-old gentleman admitted with hemoptysis, also right hilar mass. No chest pain. No palpitations. No fever. EXAM: Alert and oriented x3. Pulse is 76, blood pressure 119/82, respirations 16, temperature 98.1, pulse ox 96% on room air. HEENT: Conjunctivae normal. Oral mucosa moist. NECK: No jugular venous distention. No carotid bruits. No lymph node enlargement. CARDIOVASCULAR: S1, S2 muffled. RESPIRATORY: Breath sounds diminished in the bases. A few scattered rhonchi and crackles. ABDOMEN: Soft, nontender. NERVOUS SYSTEM: Nonfocal. LABS: WBC 6, hemoglobin is 12.3. ASSESSMENT: 1. Hemoptysis of possible bronchogenic malignancy. 2. Right hilar mass, bilobed, with possible bronchogenic malignancy. 3. Chronic obstructive pulmonary disease acute exacerbation. 4. Right upper lobe infiltrate, possible pneumonia, possibly obstructive. 5. History of cholecystectomy. 6. Coronary artery disease. 7. History of chronic obstructive pulmonary disease. 8. Hypertension. 9. History back pain. 10.History of anxiety, depression. 11.Remote history of nicotine dependence. RECOMMENDATIONS AND DISCUSSION: Recommend to continue with current medical management and symptomatic treatment. Otherwise at this time, continue the bronchodilators, continue the rest of medications. Possible bronchoscopy by Dr. Mustafa. Closely follow. Discussed with the family at length. Questions were answered and further recommendations to follow. MMODL / IJN: [id number] /
--- NOTE | 2017-12-24 20:33 | P.CONS ---
History of Present Illness - Reason for Consult Consult date: 12/24/17 New Lung Mass Requesting physician: Tucker Miranda - Chief Complaint Hemoptysis - History of Present Illness Gopi is a pleasant 57 year old male who presented to [facility] with Complaints of persistent and worsening hemoptysis over the past week. He quit smoking approximately two years ago, since this time he has been trying to become "healthier". He states he has lost approximately 30lbs over the past year but has been trying. A CT Chest revealed a 5x3cm mass in the right pulmonary hilum, there was associated paratracheal nodes (Largest 2cm), SUbcarinal nodes (Largest 2.5cm) and the mass was identified as encroaching on the right lower lobe bronchus. Patient was seen for consultation today. Hematology/Oncology was consulted for the suspected picture of a primary lung cancer. His family is at bedside. He states since admission the hemopytsis has resolved. He is still a little short of breath and has some audible wheezing. Review of Systems A 14 point review of systems assessed and completed and all negative except HPI Past Medical History Past Medical History: COPD, Hypertension Additional Past Medical History / Comment(s): back pain, History of Any Multi-Drug Resistant Organisms: None Reported Past Surgical History: Cholecystectomy Additional Past Surgical History / Comment(s): left big toe surgery-has plate, egd Past Anesthesia/Blood Transfusion Reactions: No Reported Reaction Smoking Status: Former smoker - Past Family History Mother Family Medical History: Cancer Additional Family Medical History / Comment(s): THROAT Sister(s) Family Medical History: Cancer Additional Family Medical History / Comment(s): LUNG Medications and Allergies Home Medications Medication Instructions Recorded Confirmed Type Mirtazapine 30 mg PO HS 07/06/15 12/23/17 History Omeprazole [PriLOSEC] 20 mg PO DAILY 02/03/16 12/23/17 History clonazePAM [KlonoPIN] 1 mg PO BID PRN 02/03/16 12/23/17 History Buprenorphine HCl/Naloxone HCl 1 film SL BID 03/06/16 12/23/17 History [Suboxone 2 mg-0.5 mg Sl Film] Losartan Potassium 100 mg PO BID 02/10/17 12/23/17 History FLUoxetine HCL [PROzac] 20 mg PO DAILY 12/23/17 12/23/17 History Ibuprofen 800 mg PO DAILY 12/23/17 12/23/17 History guaiFENesin [Mucinex] 1,200 mg PO BID 12/23/17 12/23/17 History Allergies Allergy/AdvReac Type Severity Reaction Status Date / Time naproxen sodium [From Aleve] Allergy Anaphylaxis Verified 12/23/17 17:36 venom-honey bee Allergy Anaphylaxis Verified 12/23/17 17:36 [bee venom (honey bee)] Physical Exam Vitals: Vital Signs Temp Pulse Pulse Resp BP BP Pulse Ox 12/24/17 08:23 16 12/24/17 08:22 98.1 F 76 16 119/82 96 12/24/17 01:26 98.2 F 78 16 118/70 95 12/24/17 00:10 16 12/23/17 21:45 97.9 F 79 16 128/84 98 12/23/17 21:00 97 F L 82 18 154/87 98 12/23/17 17:32 98 F 79 18 128/84 98 Intake and Output 12/23/17 12/24/17 12/24/17 22:59 06:59 14:59 Intake Total 1500 Balance 1500 Intake: Intake, IV Titration 1000 Amount Sodium Chloride 0.9% 1, 1000 000 ml @ 999 mls/hr IV . Q1H1M STA Rx#:[id number] Oral 500 Other: Voiding Method Toilet # Voids 3 Weight 83.915 kg - Constitutional General appearance: cooperative, no acute distress - EENT Eyes: EOMI, PERRLA, dentition normal ENT: NA/AT, normal oropharynx - Neck Supple, Trachea Midline Neck: normal ROM - Respiratory Respiratory: bilateral: rhonchi, wheezing - Cardiovascular Rhythm: regular Heart sounds: normal: S1, S2 - Gastrointestinal General gastrointestinal: distended, normal bowel sounds, soft - Integumentary Integumentary: normal - Neurologic No Focal Defects Neurologic: CNII-XII intact - Musculoskeletal Musculoskeletal: gait normal, generalized weakness, strength equal bilaterally - Psychiatric Psychiatric: A&O x's 3, appropriate affect, intact judgment & insight Results CBC & Chem 7: 12/23/17 18:30 12/24/17 12:53 Labs: Abnormal Lab Results - Last 24 Hours (Table) 12/23/17 12/23/17 Range/Units 18:30 18:30 Hgb 12.3 L (13.0-17.5) gm/dL Hct 36.6 L (39.0-53.0) % BUN 25 H (9-20) mg/dL Assessment and Plan Plan: Assessment and Recommendations: 1. Hemoptysis - Secondary to likely pulmonary malignancy/pneumonia 2. New Right Hilar Pulmonary Mass: With Associated Lymphadenopathy: - Concerning for underlying malignancy, will need bronchoscopy with Biopsy. - Discussed with patient and family and will plan inpatient bronch on Wednesday - CT abdomen and Pelvis, MRI Brain for full initial staging. 3. HX: TObacco Abuse: Quit two years ago. THank you for allowing us to follow along with you on this patient, further recs when initial staging and pathology results Time with Patient: Greater than 30
[2017-12-24] MEDS: MIRTAZAPINE 15 MG TAB PO SCH (20:55)
[2017-12-24] MEDS: clonazePAM 1 MG TAB PO PRN (20:55)
[2017-12-24 22:56] VITALS: RESP 16
[2017-12-25] MEDS: SODIUM CHLORIDE 0.9% 1,000 ML IV SCH (03:48)
[2017-12-25] MEDS: IPRATROPIUM-ALBUTEROL 3 ML NEB INHALATION SCH ×2 (07:16→13:06)
[2017-12-25] MEDS: SYMBICORT 160-4.5 MCG INHALER INHALATION SCH (07:16)
--- NOTE | 2017-12-25 09:53 | PN ---
PROGRESS NOTE DATE OF SERVICE: December 25, 2017. CHIEF COMPLAINT: Cough Doc is seen today as a followup. He still has some cough but no significant hemoptysis and otherwise he feels well. No dyspnea. No dysphagia. No headaches. No nausea or vomiting. MEDICATION: Reviewed in electronic medical record. PHYSICAL EXAMINATION: He is alert, oriented x3. No acute distress. Well developed, well nourished. VITAL SIGNS: Temperature 97.3 afebrile, pulse is 76, respirations 16, blood pressure 104/55. HEENT: Normocephalic, atraumatic. NECK: Supple. Chest equal expansion bilaterally. LUNGS: Clear to auscultation except for the crackles at the right lower lobe. Heart is regular rate and rhythm. ABDOMEN: Soft. No tenderness. Extremities revealed no edema. IMPRESSION: Large right hilar mass with encroachment of the right lower lobe bronchus and associated with mediastinal adenopathy. The clinical and radiographic picture are highly suggestive of bronchogenic carcinoma. RECOMMENDATION: 1. I did review the CAT scan finding with the patient and his today. His CT scan of the abdomen and pelvis was negative. 2. The plan to proceed with bronchoscopy on Wednesday. 3. Based on biopsy results, further diagnostic and therapeutic decision will be made. He may require further staging workup with a PET scan in the outpatient setting. MMODL / IJN: [id number] /
[2017-12-25] MEDS: BUPRENORPHINE HCL SL SCH (10:00)
[2017-12-25] MEDS: [UNRECOGNIZED DRUG - OTHER] SL SCH (10:00)
[2017-12-25] MEDS: NALOXONE HCL SL SCH (10:00)
[2017-12-25] MEDS: HEPARIN SODIUM,PORCINE 5,000 UNIT/ML 1 ML VIAL SQ SCH (10:01)
[2017-12-25] MEDS: cefTRIAXone IN SWFI 1,000 MG/10 ML SYRINGE IVP SCH (10:03)
[2017-12-25] MEDS: PANTOPRAZOLE 40 MG TABLET PO SCH (10:04)
[2017-12-25] MEDS: LOSARTAN 50 MG TAB PO SCH (10:04)
[2017-12-25] MEDS: FLUoxetine HCL 20 MG CAP PO SCH (10:04)
[2017-12-25] MEDS: guaiFENesin 600 MG TABLET.ER PO SCH (10:04)
[2017-12-25] MEDS: IBUPROFEN 800 MG TAB PO SCH (11:09)
[2017-12-25 11:14] LABS: Basophils % (A) 0 %; Eosinophils # (A) 0.2 k/uL (0-0.7); Eosinophils % (A) 3 %; HCT 37.3 % (39.0-53.0); HGB 12.4 gm/dL (13.0-17.5); Lymphocytes % (A) 17 %; MCH 28.5 pg (25.0-35.0); MCHC 33.3 g/dL (31.0-37.0); MCV 85.6 fL (80.0-100.0); Mean Platelet Volume 6.6; Monocytes # (A) 0.3 k/uL (0-1.0); Monocytes % (A) 5 %; Neutrophils # (A) 4.4 k/uL (1.3-7.7); Neutrophils % (A) 75 %; Platelet Count 250 k/uL (150-450); RBC 4.36 m/uL (4.30-5.90); RDW 13.9 % (11.5-15.5); WBC 5.8 k/uL (3.8-10.6)
--- NOTE | 2017-12-25 11:56 | P.PN ---
Subjective Progress Note Date: 12/25/17 Principal diagnosis: Hemoptysis Pulmonary consultation dated 12/24/2017 This is a 57-year-old male who presents to the emergency department with complaints of hemoptysis. The patient apparently has had 4 or 5 episodes of hemoptysis over the last 3 or 4 days. The patient states that he is coughing up bright red blood and dark blood. It's about the size of the neck all may be a bit larger. The patient states that he has not had any further episodes today. He was seen in the emergency department and had a chest x-ray was suggestive of possible mass or infiltrate in the right midlung. The patient is a heavy smoker having smoked for about 35 years. He quit about 2 and half years ago. A CAT scan was ordered and showed a mass in the right chest certainly bronchogenic carcinoma based on the report. The patient will eventually need bronchoscopy. We tried to get the patient on the [facility] scheduled today but because of the limited time slots and availability of nurses and anesthesiologist last nurse private detective, we were not allowed to put the patient on the schedule. We will bring him back next week for an outpatient procedure. He denies any shortness of breath chest tightness wheezing cough fever chills nausea vomiting or diarrhea. No chest pain or chest discomfort. The patient also has a history of hypertension. The patient is seen today 12/25/2017 in follow-up on the oncology unit. He is awake and alert in no acute distress. He's not had any further hemoptysis. Maintaining good O2 saturations in the 90s on room air. No worsening shortness of breath, cough or congestion. The plan is to discharge patient home today. He'll come back on Wednesday for an outpatient bronchoscopy with biopsies. He and his family are agreeable to the plan. Objective - Vital Signs Vital signs: Vital Signs Temp 97.3 F L 12/25/17 05:00 Pulse 67 12/25/17 08:30 Resp 16 12/25/17 08:30 BP 112/67 12/25/17 10:01 Pulse Ox 100 12/25/17 05:00 Intake & Output 12/24/17 12/25/17 12/25/17 18:59 06:59 18:59 Intake Total 600 1200 Balance 600 1200 Intake: IV 1200 Sodium Chloride 0.9% 1, 1200 000 ml @ 100 mls/hr IV . Q10H DEL Rx#:[id number] Intake, IV Titration 600 Amount Sodium Chloride 0.9% 1, 600 000 ml @ 100 mls/hr IV . Q10H DEL Rx#:[id number] Other: Voiding Method Toilet Toilet Toilet - Exam GENERAL EXAM: Alert, active, comfortable in no apparent distress. HEAD: Normocephalic. EYES: Normal reaction of pupils, equal size. NOSE: Clear with pink turbinates. THROAT: No erythema or exudates. NECK: No masses, no JVD. CHEST: No chest wall deformity. LUNGS: Equal air entry with no crackles, wheeze, rhonchi or dullness. CVS: S1 and S2 normal with no audible murmur, regular rhythm. ABDOMEN: No hepatosplenomegaly, normal bowel sounds, no guarding or rigidity. SPINE: No scoliosis or deformity SKIN: No rashes CENTRAL NERVOUS SYSTEM: No focal deficits, tone is normal in all 4 extremities. EXTREMITIES: There is no peripheral edema. No clubbing, no cyanosis. Peripheral pulses are intact. - Labs CBC & Chem 7: 12/25/17 10:51 12/24/17 12:53 Labs: Abnormal Lab Results - Last 24 Hours (Table) 12/25/17 Range/Units 10:51 Hgb 12.4 L (13.0-17.5) gm/dL Hct 37.3 L (39.0-53.0) % Microbiology - Last 24 Hours (Table) 12/23/17 18:30 Blood Culture - Preliminary Blood No Growth after 24 hours Assessment and Plan Assessment: Assessment Lung mass, right chest, most certainly bronchogenic carcinoma based on the patient's CAT scan results. Possible underlying COPD although the patient denies any breathing issues Hemoptysis, likely related to the mass in the chest and bloating into or irritating the bronchus Previous heavy tobacco use although the patient quit smoking 2 years ago. History of anxiety and depression History of chronic back pain Plan: The patient was seen and evaluated by Dr. Mustafa. He remains stable from the pulmonary standpoint. He could be discharged home today. He will be nothing by mouth after midnight on Wednesday and return to the hospital on Wednesday, 2017 for bronchoscopy with biopsies. He and his family are agreeable to the plan. I, the cosigning physician, performed a history & physical examination of the patient. Lungs sounds are clear. Maintaining good O2 saturations in the 90s on room air. I discussed the assessment and plan of care with my nurse practitioner, Nafisa Fontenot. I attest to the above note as dictated by her.
--- NOTE | 2017-12-26 05:41 | DS ---
DISCHARGE SUMMARY DATE OF SERVICE: 12/25/2017. FINAL DIAGNOSES: 1. Hemoptysis, possible bronchogenic malignancy. 2. Right hilar mass bilobed with possible bronchogenic malignancy. 3. Chronic obstructive pulmonary disease acute exacerbation, improved. 4. Right upper lobe infiltrate, possibly pneumonia, possibly obstructive. 5. History of cholecystectomy. 6. History of coronary artery disease. 7. History of chronic obstructive pulmonary disease. 8. Hypertension. 9. History of back pain. 10.History of anxiety and depression. 11.Remote history of nicotine dependence. DISCHARGE DISPOSITION: The patient will be discharged in stable condition with guarded prognosis. HISTORY OF PRESENT ILLNESS: This 57-year-old gentleman with a past medical history was admitted with hemoptysis. Patient had right hilar mass. Patient treated with antibiotics for pneumonia. Patient improved significantly. Dr. Mustafa saw the patient and recommended outpatient bronchoscopy and biopsy. On exam, vital signs are stable. Cardiovascular: S1, S2 Respiratory: A few scattered rhonchi. Abdomen: Soft. DISCHARGE ADVICE: 1. Diet is cardiac. 2. Activity limited until followup. 3. Please note hemoglobin is stable. 4. Follow with Dr. Damien Irwin in 1-2 days. 5. Follow with Dr. Mustafa in the outpatient setting and continue monitoring. MEDICATIONS: 1. Buprenorphine 1 p.o. b.i.d. 2. Klonopin 1 mg b.i.d. p.r.n. 3. Prozac 20 mg p.o. daily. 4. Mucinex 1200 mg b.i.d. 5. Ibuprofen 800 mg daily p.r.n. 6. Losartan 100 mg p.o. b.i.d. 7. Remeron 30 mg q.h.s. 8. Prilosec 20 mg daily. 9. Tylenol 650 q.6h p.r.n. 10.Ventolin 2 puffs q.i.d. p.r.n. 11.Ceftin 500 mg p.o. b.i.d. for 4 days. Once again, the patient is being discharged in stable condition with guarded prognosis. MMODL / IJN: [id number] /
[2017-12-27 11:40] VITALS: PULSE 67; TEMP 97.3
== END 2017-12-25 13:15 | disposition home or self-care (01) | DRG 180 ==
LOC: EC 17:05 → INTOOBSV 20:34 → 3SUR 20:34 → 5ONC 12-24 08:42 → OBSVTOIN 12-24 15:38
PROVIDERS: ADMIT Internal Medicine; ATTEND Internal Medicine
DX: C34.01 Malignant neoplasm of right main bronchus (principal); J18.9 Pneumonia, unspecified organism; J44.0 Chronic obstructive pulmonary disease with (acute) lower respiratory infection; J44.1 Chronic obstructive pulmonary disease with (acute) exacerbation; Z87.891 Personal history of nicotine dependence; F32.9 Major depressive disorder, single episode, unspecified; F41.9 Anxiety disorder, unspecified; I10 Essential (primary) hypertension; I25.10 Atherosclerotic heart disease of native coronary artery without angina pectoris; Z79.899 Other long term (current) drug therapy; Z80.8 Family history of malignant neoplasm of other organs or systems; Z90.49 Acquired absence of other specified parts of digestive tract; Z79.1 Long term (current) use of non-steroidal anti-inflammatories (NSAID); Z88.6 Allergy status to analgesic agent; Z91.030 Bee allergy status
CPT/HCPCS: 36415; 71046; 71260; 74177; 80053; 83735; 85025; 85610; 85730; 87040; 93005; 94640; 96361; 96365; 96375; 99285

== ENCOUNTER 2017-12-27 11:03 | Day surgery (SDC) | payer OTHER ==
[2017-12-27] MEDS ORDERED: LIDOCAINE 1% 20 ML VIAL (10MG/ML) FOR IV START INTRADERMA ONE (11:30)
[2017-12-27] MEDS ORDERED: LACTATED RINGERS 1,000 ML IV ONE (11:35)
[2017-12-27 11:41] VITALS: TEMP 97.9
[2017-12-27] MEDS ORDERED: LIDOCAINE 2% (PF) 20 MG/ML 2 ML AMP INHALATION STA (12:07)
[2017-12-27] MEDS ORDERED: ALBUTEROL NEBULIZED 2.5 MG/3 ML INHALATION STA (12:08)
[2017-12-27] MEDS ORDERED: PROPOFOL 10 MG/ML 20 ML VIAL IV ONE (12:29)
[2017-12-27] MEDS ORDERED: KETAMINE 10 MG/ML 20 ML VIAL ONE (12:29)
[2017-12-27] MEDS ORDERED: MIDAZOLAM 2 MG/2 ML VIAL ONE (12:29)
[2017-12-27] MEDS ORDERED: GLYCOPYRROLATE 0.2 MG/ML 2 ML VIAL ONE (12:29)
--- NOTE | 2017-12-27 13:05 | P.PCN ---
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 The patient was sedated with a combination of 2 mg of Versed, 50 mg of ketamine and 200 mg of propofol. After achieving adequate sedation, the flexible bronchoscope was inserted through the right nostril was advanced into the upper airway. Examination of the posterior oropharynx, larynx, epiglottis, vallecula, arytenoids and the vocal cords was within normal limits. No abnormalities was identified. A total of 2 mL of 1% lidocaine was applied to the vocal cords and following that the bronchoscope was advanced into the upper trachea. There was bloody hemorrhagic mucous retention within the trachea even prior to initiating the airway inspection. Therapeutic it was suctioning was done and the airway inspection was initiated. The trachea was within normal with exception of bloody secretions and mucoid material occupying the airway. Similarly minimal amount of bloody mucoid material was seen in the bilateral mainstem bronchi. Left mainstem bronchus left upper lobe bronchus left lower lobe bronchus and the various segments and subsegments were all inspected and are all within normal limits. The bronchoscope was then moved to the right. At the level of the distal right mainstem bronchus, the secondary kasandra was visualized the right upper lobe bronchus and right lower lobe bronchus. The secondary kasandra was irregular and bulged and extrinsically compressed. The right upper lobe bronchus was occluded by extrinsic compression an endobronchial tumor. The data segments of the right upper lobe bronchus could not be accurately visualized. This was mainly due to the extrinsic compression seen at the same level. The orifice of the right upper lobe bronchus was significantly narrowed. The endobronchial tumor was involving the right upper lobe bronchus, the secondary kasandra the to the right upper lobe bronchus and the bronchus intermedius, and it was also involving the lateral wall of the bronchus intermedius extending all the way today orifice of the right lower lobe bronchus. The orifice for the severe segment of the right lower lobe was not visualized. Various segments of the right lower lobe was seen including the anterior lateral and the posterior segment. The right middle lobe bronchus was patent. The surface of the tumor was very friable and irregular and hemorrhagic. Superficial bleeding was encountered from the tumor surface. Initiate I performed a bronchioloalveolar lavage of the right upper lobe at 80 mL of fluid was infused and 25 mL was suctioned back. The aspirate was bloody. Following that, I performed a bronchial biopsies of the right upper lobe bronchus and the kasandra the right upper lobe bronchus and the bronchus intermedius. There was all at one tumor that was also extending into the bronchus intermedius. Several endobronchial biopsies obtained. Following that and the bronchial brushings of the right upper lobe was also obtained. I then of the procedure, all of the bloody secretions were suctioned out. Therapeutic airway suctioning was done. The bronchoscope was removed and the patient was transferred to recovery in stable condition Anticipate some ongoing hemoptysis as the tumor surface is quite friable and irritated and hemorrhagic and had a low-grade intermittent superficial areas of bleeding. Awaiting final pathology. We'll proceed accordingly.
[2017-12-27 13:39] VITALS: BP 143/84; PULSE 78; RESP 20
== END 2017-12-27 14:08 | disposition home or self-care (01) ==
LOC: ORWHC2ENDO 11:03
PROVIDERS: ATTEND Internal Medicine Critical Care Medicine
DX: C34.11 Malignant neoplasm of upper lobe, right bronchus or lung (principal); J44.9 Chronic obstructive pulmonary disease, unspecified; I10 Essential (primary) hypertension; F41.9 Anxiety disorder, unspecified; F32.9 Major depressive disorder, single episode, unspecified; M54.9 Dorsalgia, unspecified; G89.29 Other chronic pain; Z87.891 Personal history of nicotine dependence; Z79.1 Long term (current) use of non-steroidal anti-inflammatories (NSAID); Z79.51 Long term (current) use of inhaled steroids; Z79.899 Other long term (current) drug therapy; Z88.6 Allergy status to analgesic agent; Z91.030 Bee allergy status; Z90.49 Acquired absence of other specified parts of digestive tract
CPT/HCPCS: 94640; 88104; 88108; 88305; 88342; 88341; 31645; 31625; 31623; 31624; J2250; J2704; J2001

== ENCOUNTER → 2018-01-01 | Outpatient (CLI) | payer OTHER ==
--- NOTE | 2018-01-03 10:22 | PE ---
Nuclear medicine PET/CT HISTORY: Pulmonary nodule, initial Patient received 12.4 mCi F-18 FDG intravenously and delayed scanning was performed from the skull ba se to the mid thighs. Localization and attenuation correction CT scan was performed. Exam is correlat ed to CT chest 12/23/2017, CT abdomen pelvis 12/24/2017. FINDINGS: Neck and chest: The mass in the right upper lobe perihilar location shows spiculated margins and norman uring approximately 5 cm in greatest AP dimension, there is likely some postobstructive atelectatic c hange, extension to the level of the major fissure, there is associated hypermetabolic uptake, SUV is 13.2. Retrocaval pretracheal node is enlarged and shows associated hypermetabolic uptake, SUV 9.9. L eft hilar node shows mild hypermetabolic uptake, SUV 4.3 as does a mediastinal node anterior to the s uperior vena cava which is not enlarged, SUV 4.9. There is no pleural effusion. Emphysematous changes are present within the lungs. Abdomen pelvis: Adrenal glands are normal. No retroperitoneal adenopathy or evident liver mass. No fatima spicious hypermetabolic uptake. Osseous structures unremarkable IMPRESSION: Findings compatible with bronchogenic carcinoma as described.
== END | disposition home or self-care (01) ==
LOC: RADPETMAIN 12:52
PROVIDERS: ATTEND Internal Medicine Hematology & Oncology
DX: R91.1 Solitary pulmonary nodule (principal)
CPT/HCPCS: 78815; A9552

== ENCOUNTER → 2018-01-06 | Outpatient (CLI) | payer OTHER ==
--- NOTE | 2018-01-06 11:53 | MR ---
EXAMINATION TYPE: MR brain wo/w con DATE OF EXAM: 01/06/2018 COMPARISON: None HISTORY: Lung CA, HUNTER, mets TECHNIQUE: Multiplanar, multisequence images of the brain and brainstem is performed without and with IV contras t, utilizing 8.5 mL intravenous Gadavist . FINDINGS: Diffusion weighted images demonstrate no evidence of a recent infarct or other diffusion ab normality. Severe changes of sinusitis noted particularly involving frontal ethmoid sinus. Craniocervical junction demonstrates low-lying cerebellar tonsils at the level the foramen magnum. No tonsillar beaking. No cerebellopontine angle mass. Midline structures demonstrate normal morphology. Post contrast images demonstrate no abnormal enhan cement. The dural venous sinuses appear patent. The visualized sinuses are clear and the globes are i ntact. White matter: There are 3-4 sub-5 mm areas of abnormal signal within the white matter too small to ch aracterize of doubtful clinical significance. No enhancing lesions. Most likely the basis of either m igraine headaches, hypertension, or remote microvascular ischemia. IMPRESSION: 1. Minimal nonspecific white matter changes. 2. Severe changes of sinusitis particularly involving ethmoid and frontal sinuses. 3. Low-lying cerebellar tonsils at the level of the foramen magnum.
== END | disposition home or self-care (01) ==
LOC: RADMRIMAIN 09:41
PROVIDERS: ATTEND Internal Medicine Hematology & Oncology
DX: J32.1 Chronic frontal sinusitis (principal); J32.2 Chronic ethmoidal sinusitis; R90.82 White matter disease, unspecified; C34.11 Malignant neoplasm of upper lobe, right bronchus or lung
CPT/HCPCS: 70553; A9581; 77332

== ENCOUNTER 2018-01-31 01:56 | Inpatient (IN) | payer OTHER ==
[2018-01-31] MEDS ORDERED: HYDROmorphone 0.5 MG/0.5 ML SYRINGE IVP STA (02:34)
[2018-01-31] MEDS ORDERED: HYDROmorphone 1 MG/ML 1 ML SYRINGE IVP STA (03:10)
[2018-01-31] MEDS ORDERED: LABETALOL 5 MG/ML VIAL MDV IVP STA (03:12)
[2018-01-31 03:21] LABS: Basophils % (A) 0 %; Eosinophils # (A) 0.2 k/uL (0-0.7); Eosinophils % (A) 4 %; HCT 39.4 % (39.0-53.0); HGB 12.8 gm/dL (13.0-17.5); Lymphocytes # (A) 0.8 k/uL (1.0-4.8); Lymphocytes % (A) 13 %; MCH 28.6 pg (25.0-35.0); MCHC 32.4 g/dL (31.0-37.0); MCV 88.2 fL (80.0-100.0); Mean Platelet Volume 6.3; Monocytes # (A) 0.1 k/uL (0-1.0); Monocytes % (A) 1 %; Neutrophils % (A) 82 %; Platelet Count 242 k/uL (150-450); RBC 4.47 m/uL (4.30-5.90); RDW 13.1 % (11.5-15.5); WBC 6.2 k/uL (3.8-10.6)
[2018-01-31 03:29] LABS: ALT 27 U/L (21-72); AST 19 U/L (17-59); Albumin 3.4 g/dL (3.5-5.0); Alkaline Phosphatase 82 U/L (38-126); Anion Gap 5 mmol/L; Blood Urea Nitrogen 33 mg/dL (9-20); Calcium 8.8 mg/dL (8.4-10.2); Carbon Dioxide 32 mmol/L (22-30); Chloride 97 mmol/L (98-107); Glucose 83 mg/dL (74-99); Potassium 4.4 mmol/L (3.5-5.1); Sodium 134 mmol/L (137-145); Total Bilirubin 0.4 mg/dL (0.2-1.3); Total Protein 6.2 g/dL (6.3-8.2)
--- NOTE | 2018-01-31 04:18 | ED ---
Headache HPI - General Chief Complaint: Headache Stated Complaint: migraine,cancer pt Time Seen by Provider: 01/31/18 02:09 Mode of arrival: ambulatory Limitations: no limitations - History of Present Illness Initial Comments: This patient is a 57-year-old man who presents to be evaluated for headache. The patient states that it came on around 10:30 and was present when he woke from sleep. He had gotten up to use the bathroom and noted that he was having headache. She states rapidly became the worst headache that is ever had. He indicates the whole head. I'll questioned to the type of pain he states that just hurts. The pain is constant and severe. He has not noted relieving factors. The pain is worse with bright light. Patient has had some coming nausea but no other symptoms. He denies preceding upper respiratory or sinus type symptoms. Patient has not had any associated neurologic symptoms. Of note , he was diagnosed with lung cancer in December. He completed one week of radiation treatment last week, as scheduled for further treatments this week. He did have an MRI performed January 06 which did not show any definite malignancy. MD Complaint: headache Onset/Timin -: hour(s) Onset Description: sudden Location: diffuse Severity: severe Quality: aching, worst headache of life Consistency: constant Improves With: nothing Worsens With: none Context: occurred at rest Associated Symptoms: photophobia Treatments Prior to Arrival: none - Related Data Home Medications Medication Instructions Recorded Confirmed Mirtazapine 30 mg PO HS 07/06/15 01/31/18 Omeprazole [PriLOSEC] 20 mg PO DAILY 02/03/16 01/31/18 clonazePAM [KlonoPIN] 1 mg PO BID PRN 02/03/16 01/31/18 Buprenorphine HCl/Naloxone HCl 1 film SL BID 03/06/16 01/31/18 [Suboxone 2 mg-0.5 mg Sl Film] Losartan Potassium 100 mg PO BID 02/10/17 01/31/18 FLUoxetine HCL [PROzac] 20 mg PO DAILY 12/23/17 01/31/18 Lisdexamfetamine Dimesylate 60 mg PO QAM 01/31/18 01/31/18 [Vyvanse] Previous Rx's Medication Instructions Recorded Albuterol Inhaler [Ventolin Hfa 2 puff INHALATION RT-Q6H #1 inhaler 12/25/17 Inhaler] Allergies Allergy/AdvReac Type Severity Reaction Status Date / Time naproxen sodium [From Aleve] Allergy Anaphylaxis Verified 01/31/18 07:58 venom-honey bee Allergy Anaphylaxis Verified 01/31/18 07:58 [bee venom (honey bee)] Review of Systems ROS Statement: Those systems with pertinent positive or pertinent negative responses have been documented in the HPI. ROS Other: All systems not noted in ROS Statement are negative. Constitutional: Denies: fever, chills, weakness Eyes: Denies: eye pain, vision change ENT: Denies: ear pain, throat pain, hearing loss Respiratory: Denies: cough, dyspnea Cardiovascular: Denies: chest pain, syncope Gastrointestinal: Reports: nausea. Denies: abdominal pain, vomiting Musculoskeletal: Denies: back pain Skin: Denies: rash Neurological: Reports: headache. Denies: weakness, numbness, paresthesias, confusion, vertigo Hematological/Lymphatic: Denies: easy bleeding Past Medical History Past Medical History: Cancer, COPD, Hypertension Additional Past Medical History / Comment(s): back pain, lung cancer History of Any Multi-Drug Resistant Organisms: None Reported Past Surgical History: Cholecystectomy Additional Past Surgical History / Comment(s): left big toe surgery-has plate, egd Past Anesthesia/Blood Transfusion Reactions: No Reported Reaction Past Psychological History: Anxiety, Depression Smoking Status: Former smoker Past Alcohol Use History: None Reported Past Drug Use History: None Reported - Past Family History Mother Family Medical History: Cancer Additional Family Medical History / Comment(s): THROAT Sister(s) Family Medical History: Cancer Additional Family Medical History / Comment(s): LUNG General Exam Limitations: no limitations General appearance: alert, in no apparent distress Head exam: Present: atraumatic, normocephalic Eye exam: Present: normal appearance, PERRL. Absent: scleral icterus, conjunctival injection, nystagmus, periorbital swelling, periorbital tenderness ENT exam: Present: normal oropharynx Neck exam: Present: normal inspection, full ROM Respiratory exam: Present: normal lung sounds bilaterally. Absent: respiratory distress, wheezes, rales, rhonchi, stridor Cardiovascular Exam: Present: regular rate, normal rhythm, normal heart sounds. Absent: systolic murmur, diastolic murmur, rubs, gallop Neurological exam: Present: alert, oriented X3, CN II-XII intact. Absent: motor sensory deficit Skin exam: Present: warm, dry, intact, normal color. Absent: rash Course Vital Signs 01/31/18 01/31/18 01/31/18 02:02 03:07 03:46 Temperature 97.6 F Pulse Rate 94 82 83 Respiratory 18 20 20 Rate Blood Pressure 91/62 161/117 114/61 O2 Sat by Pulse 98 98 98 Oximetry 01/31/18 01/31/18 01/31/18 04:30 05:28 07:04 Temperature Pulse Rate 77 Respiratory 20 18 18 Rate Blood Pressure 124/74 109/63 152/73 O2 Sat by Pulse 97 97 Oximetry 01/31/18 07:38 Temperature 97.2 F L Pulse Rate Respiratory Rate Blood Pressure O2 Sat by Pulse Oximetry Medical Decision Making - Lab Data Result diagrams: 01/31/18 03:00 01/31/18 03:00 Lab Results 01/31/18 01/31/18 Range/Units 03:00 03:00 WBC 6.2 (3.8-10.6) k/uL RBC 4.47 (4.30-5.90) m/uL Hgb 12.8 L (13.0-17.5) gm/dL Hct 39.4 (39.0-53.0) % MCV 88.2 (80.0-100.0) fL MCH 28.6 (25.0-35.0) pg MCHC 32.4 (31.0-37.0) g/dL RDW 13.1 (11.5-15.5) % Plt Count 242 (150-450) k/uL Neutrophils % 82 % Lymphocytes % 13 % Monocytes % 1 % Eosinophils % 4 % Basophils % 0 % Neutrophils # 5.0 (1.3-7.7) k/uL Lymphocytes # 0.8 L (1.0-4.8) k/uL Monocytes # 0.1 (0-1.0) k/uL Eosinophils # 0.2 (0-0.7) k/uL Basophils # 0.0 (0-0.2) k/uL Sodium 134 L (137-145) mmol/L Potassium 4.4 (3.5-5.1) mmol/L Chloride 97 L (98-107) mmol/L Carbon Dioxide 32 H (22-30) mmol/L Anion Gap 5 mmol/L BUN 33 H (9-20) mg/dL Creatinine 1.01 (0.66-1.25) mg/dL Est GFR (CKD-EPI)AfAm >90 (>60 ml/min/1.73 sqM) Est GFR (CKD-EPI)NonAf 82 (>60 ml/min/1.73 sqM) Glucose 83 (74-99) mg/dL Calcium 8.8 (8.4-10.2) mg/dL Total Bilirubin 0.4 (0.2-1.3) mg/dL AST 19 (17-59) U/L ALT 27 (21-72) U/L Alkaline Phosphatase 82 (38-126) U/L Total Protein 6.2 L (6.3-8.2) g/dL Albumin 3.4 L (3.5-5.0) g/dL Disposition Referrals: Damien Irwin DO [Primary Care Provider] - 1-2 days
--- NOTE | 2018-01-31 04:44 | CT ---
ADDENDUM - Added by Javier Belcher MD on 01/31/2018 4:55 AM (-07:00) Severe/complete opacification of the frontal sinuses bilaterally, unchanged from the prior MRI from 01/06/18. EXAM: CT Head Without Intravenous Contrast CLINICAL HISTORY: ITS.REASON CT Reason: Headache TECHNIQUE: Axial computed tomography images of the head/brain without intravenous contrast. CTDI is 57 mGy and DLP is 958 mGy-cm. This CT exam was performed using one or more of the following dose reduction techniques: automated exposure control, adjustment of the mA and/or kV according to patient size, and/or use of iterative reconstruction technique. COMPARISON: No relevant prior studies available. FINDINGS: Brain: No hemorrhage, large hypodensity, or mass effect. Unchanged low-lying cerebellar tonsils. Expanded empty sella. Ventricles: No hydrocephalus. Bones/joints: Unremarkable. Soft tissues: There is flattening of the posterior globes bilaterally with slightly tortuous optic nerves. Sinuses: Unremarkable. Mastoid air cells: Clear. IMPRESSION: Expanded empty sella with flattening of the posterior globes bilaterally and slightly tortuous optic nerves. Findings may represent intracranial hypertension. No acute hemorrhage, hydrocephalus, or mass effect. Critical Value [employer] 01/31/18 05:01 Verify Receipt Verified receipt with [facility] in ER given to - = Dr. Tai on 01/31 05:02 (-04:00) 01/31/18 05:16 Call From [facility] Dr. Tai on 01/31 04:52 (-04:00)
[2018-01-31] MEDS ORDERED: acetaZOLAMIDE 250 MG TAB PO STA (04:58)
[2018-01-31] MEDS ORDERED: MORPHINE SULFATE 4 MG/ML SYRINGE IV STA ×2 (05:04→07:20)
[2018-01-31] MEDS ORDERED: SODIUM CHLORIDE 0.9% 1,000 ML IV STA (05:13)
[2018-01-31] MEDS ORDERED: ONDANSETRON 4 MG/2 ML VIAL IVP PRN (08:00)
[2018-01-31] MEDS ORDERED: ACETAMINOPHEN TAB 325 MG TAB PO PRN (08:00)
[2018-01-31] MEDS ORDERED: NALOXONE 0.4 MG/ML 1 ML VIAL IV PRN (08:00)
[2018-01-31] MEDS ORDERED: MORPHINE SULFATE 4 MG/ML SYRINGE IV PRN (08:00)
[2018-01-31] MEDS ORDERED: IBUPROFEN 600 MG TAB PO SCH (10:00)
[2018-01-31] MEDS: MORPHINE SULFATE 4 MG/ML SYRINGE IV PRN ×4 (10:43→22:22)
[2018-01-31] MEDS: SODIUM CHLORIDE 0.9% 1,000 ML IV SCH ×2 (10:44→20:43)
[2018-01-31] MEDS: FAMOTIDINE 20 MG TAB PO SCH ×2 (10:44→19:41)
[2018-01-31] MEDS ORDERED: HYDROcodone/APAP 5-325MG 1 EACH TAB PO PRN (12:34)
--- NOTE | 2018-01-31 12:35 | P.HPIM ---
History of Present Illness This is a pleasant 77 years old male with past medical history of lung cancer status post chemo and radiotherapy few days ago when he got his last chemotherapy on 01/28/2018. Hypertension, COPD, GERD, pneumonia, bronchitis. Previous smoker. Presents with headache. Patient states he has been getting chemo and radiotherapy overall last 5 days and he took the weekend off, however on Wednesday night yesterday at 10:30 PM he started to have headache and within half an hour to make some up from sleep. Patient states the pain is all over his head but is more around his eyes and face. Thrombing in character. Was about 9/10 in severity but now subsided with pain medication and after he ate. No associated nausea or vomiting. No weakness in arms or legs. No abnormal sensation. No blurred vision or slurred speech. No difficulty swallowing . Patient denies any chest pain. No dyspnea. No abdominal pain. No change in urine bowel habits. No fever. In the emergency room his CBC , LFT and BMP were unremarkable. CT of the head: No acute hemorrhage: Extended empty sella with a flattening of the posterior globes bilaterally and slightly tortuous optic nerve. Finding may represent intracranial hypertension. Patient has been already evaluated by the hematology team I recommended MRI of the brain which is going to be done this afternoon 01/31/2018 Review of Systems CONSTITUTIONAL: No fever, no malaise, no fatigue. HEENT: No recent visual problems or hearing problems. Denied any sore throat. CARDIOVASCULAR: No orthopnea, PND, no palpitations, no syncope. PULMONARY: No shortness of breath, no cough, no hemoptysis. GASTROINTESTINAL: No diarrhea, no nausea, no vomiting, no abdominal pain. Normoactive bowel sounds. NEUROLOGICAL: No headaches, no weakness, no numbness. HEMATOLOGICAL: Denies any bleeding or petechiae. GENITOURINARY: Denies any burning micturition, frequency, or urgency. MUSCULOSKELETAL/RHEUMATOLOGICAL: Denies any joint pain, swelling, or any muscle pain. ENDOCRINE: Denies any polyuria or polydipsia. Past Medical History Past Medical History: Cancer, COPD, GERD/Reflux, Hypertension, Pneumonia Additional Past Medical History / Comment(s): 12/2017 hemoptysis, diagnosed R lung cancer-had radiation/chemo last week with last chemo on 01/28/18, bronchitis , gastritis, diverticulosis, occasional back pain. History of Any Multi-Drug Resistant Organisms: None Reported Past Surgical History: Cholecystectomy, Orthopedic Surgery Additional Past Surgical History / Comment(s): 12/27/17 bronchoscopy with BAL/ brushings/bx, L great toe with plate, L knee arthroscopic ACL repair, R knee arthroscopy, EGD, colonoscopy, Past Anesthesia/Blood Transfusion Reactions: No Reported Reaction Smoking Status: Former smoker - Past Family History Mother Family Medical History: Cancer Additional Family Medical History / Comment(s): THROAT Sister(s) Family Medical History: Cancer Additional Family Medical History / Comment(s): LUNG Father Family Medical History: Diabetes Mellitus Medications and Allergies Home Medications Medication Instructions Recorded Confirmed Type Mirtazapine 30 mg PO HS 07/06/15 01/31/18 History Omeprazole [PriLOSEC] 20 mg PO BID 02/03/16 01/31/18 History clonazePAM [KlonoPIN] 1 mg PO BID PRN 02/03/16 01/31/18 History Buprenorphine HCl/Naloxone HCl 1 film SL DAILY 03/06/16 01/31/18 History [Suboxone 2 mg-0.5 mg Sl Film] Losartan Potassium 100 mg PO BID 02/10/17 01/31/18 History FLUoxetine HCL [PROzac] 20 mg PO DAILY 12/23/17 01/31/18 History Albuterol Inhaler [Ventolin Hfa 2 puff INHALATION RT-Q6H #1 inhaler 12/25/17 Rx Inhaler] Lisdexamfetamine Dimesylate 60 mg PO QAM 01/31/18 01/31/18 History [Vyvanse] Allergies Allergy/AdvReac Type Severity Reaction Status Date / Time naproxen sodium [From Aleve] Allergy Anaphylaxis Verified 01/31/18 07:58 venom-honey bee Allergy Anaphylaxis Verified 01/31/18 07:58 [bee venom (honey bee)] Physical Exam Vitals: Vital Signs Temp Pulse Pulse Resp BP BP Pulse Ox 01/31/18 09:23 97.8 F 01/31/18 09:18 97.2 F L 79 18 120/76 100 01/31/18 08:33 78 18 119/72 99 01/31/18 07:38 97.2 F L 01/31/18 07:04 18 152/73 01/31/18 05:28 77 18 109/63 97 01/31/18 04:30 20 124/74 97 01/31/18 03:46 83 20 114/61 98 01/31/18 03:07 82 20 161/117 98 01/31/18 02:02 97.6 F 94 18 91/62 98 Intake and Output 01/30/18 01/31/18 01/31/18 22:59 06:59 14:59 Other: Weight 83.915 kg GENERAL: The patient is alert and oriented x3, not in any acute distress. Well developed, well nourished. HEENT: Pupils are round and equally reacting to light. EOMI. No scleral icterus. No conjunctival pallor. Normocephalic, atraumatic. No pharyngeal erythema. No thyromegaly. CARDIOVASCULAR: S1 and S2 present. No murmurs, rubs, or gallops. PULMONARY: Chest is clear to auscultation, no wheezing or crackles. ABDOMEN: Soft, nontender, nondistended, normoactive bowel sounds. No palpable organomegaly. MUSCULOSKELETAL: No joint swelling or deformity. EXTREMITIES: No cyanosis, clubbing, or pedal edema. NEUROLOGICAL: Gross neurological examination did not reveal any focal deficits. SKIN: No rashes. Results CBC & Chem 7: 01/31/18 03:00 01/31/18 03:00 Labs: Abnormal Lab Results - Last 24 Hours (Table) 01/31/18 01/31/18 Range/Units 03:00 03:00 Hgb 12.8 L (13.0-17.5) gm/dL Lymphocytes # 0.8 L (1.0-4.8) k/uL Sodium 134 L (137-145) mmol/L Chloride 97 L (98-107) mmol/L Carbon Dioxide 32 H (22-30) mmol/L BUN 33 H (9-20) mg/dL Total Protein 6.2 L (6.3-8.2) g/dL Albumin 3.4 L (3.5-5.0) g/dL Thrombosis Risk Factor Assmnt - Choose All That Apply Any of the Below Risk Factors Present?: Yes Each Factor Represents 1 point: Abnormal pulmonary function (COPD), Age 41-60 years, Obesity (BMI >25) Other Risk Factors: Yes Each Risk Factor Represents 2 Points: Malignancy Other congenital or acquired thrombophilia - If yes, enter type in comment: No Thrombosis Risk Factor Assessment Total Risk Factor Score: 5 Thrombosis Risk Factor Assessment Level: High Risk Assessment and Plan Assessment: Severe headache recent h/o Lung cancer status post chemo and radiotherapy.his last chemotherapy on 01/28/2018. Hypertension, essential COPD, not in acute exacerbation GERD pneumonia/bronchitis Plan: This is a pleasant 57 years old male was recently diagnosed with lung cancer. He got his last chemotherapy 3-4 days prior to admission. He'll comes with severe headache. Continue with same treatment. Continue with pain management. Continue with symptomatic treatment. Resume home medication. Monitor lytes and vitals. Neurology consult. Hematology/oncology consult. Recommended MRI of the brain. GI and DVT prophylaxis. Further recommendations based on the clinical course of the patient DVT prophylaxis: Patient is mobile. Continue with mechanical. Heparin has more than benefits at this point GI prophylaxis: Pepcid
--- NOTE | 2018-01-31 15:28 | MR ---
EXAMINATION TYPE: MR brain wo/w con DATE OF EXAM: 01/31/2018 COMPARISON: CT brain earlier today. MRI brain January 06, 2018. HISTORY: Advanced lung cancer with intractable headache. TECHNIQUE: Multiplanar, multisequence images of the brain and brainstem is performed without and with IV contras t, utilizing 7.5 mL intravenous Gadavist . FINDINGS: Diffusion weighted images demonstrate no evidence of a recent infarct or other diffusion ab normality. There is no extra-axial fluid collection or new significant white matter signal abnormali ty. A few tiny foci of T2 hyperintensity remaining present, for reference 3 mm right parietal deep wh ite matter lesion axial image 19 is redemonstrated. The ventricular system and cisternal spaces are n ormal in size and appearance. The brain volume is age appropriate. Midline structures demonstrate normal morphology. The craniocervical junction appears within normal limits. No significant change is present Post contrast images demonstrate no abnormal enhancement. Th e dural venous sinuses appear patent. Completely filled bilateral frontal sinuses remain present. The re is mild to moderate mucosal thickening involving ethmoid sinuses redemonstrated. Remainder paranas al sinuses are clear. The globes are intact bilaterally. IMPRESSION: No new enhancing intraparenchymal mass to suggest metastatic disease to the brain. Persis tent completely filled bilateral frontal sinuses. No new suspicious finding is seen to account for lukasz gamble's symptoms.
--- NOTE | 2018-01-31 19:34 | P.CONS ---
History of Present Illness - Reason for Consult Consult date: 01/31/18 Intractable headache. Squamous cell lung cancer on chemoradiation - History of Present Illness The patient is a 57-year-old gentleman, who was diagnosed with squamous cell carcinoma of the right lung, in 12/25. He had presented with hemoptysis and was found to have a right hilar mass as well as mediastinal and hilar adenopathy. Bronchoscope with biopsy confirmed squamous cell cancer. PET scan showed evidence of stage III disease with mediastinal zachary involvement. MRI of the brain was negative from late 12/25. Incidentally it did show severe sinusitis especially on the left The patient was started on concurrent chemoradiation on 01/24/18. He states that he woke up with a severe headache last night. The headache appear to be somewhat more prominent on the left, but also extended to the right. It involved the cheek bones and upper jaw bone, the periorbital area, as well as bitemporal and bifrontal areas. He came into the emergency room, and had a computed tomography scan of the brain done that was negative for stroke or bleed. It was mentioned that there was possibility of intracranial hypertension. Systemic blood pressure was normal. The patient was admitted for further management as his pain was severe enough controlled. Consult was placed for further evaluation and recommendations Review of Systems Constitutional: Reports fatigue, Reports weakness Eyes: denies blurred vision, denies pain Ears: deny: decreased hearing, ear discharge, earache, tinnitus Ears, nose, mouth and throat: Reports headache Cardiovascular: Denies chest pain, Denies shortness of breath Respiratory: Reports as per HPI, Reports congestion, Reports cough with sputum, Reports hemoptysis (none since last 7-8 days) Gastrointestinal: Denies abdominal pain, Denies diarrhea, Denies nausea, Denies vomiting Genitourinary: Reports as per HPI Musculoskeletal: Denies myalgias Integumentary: Denies pruritus, Denies rash Neurological: Reports headaches Psychiatric: Denies anxiety, Denies depression Endocrine: Reports fatigue, Denies weight change Hematologic/Lymphatic: Reports as per HPI Past Medical History Past Medical History: Cancer, COPD, GERD/Reflux, Hypertension, Pneumonia Additional Past Medical History / Comment(s): 12/2017 hemoptysis, diagnosed R lung cancer-had radiation/chemo last week with last chemo on 01/28/18, bronchitis , gastritis, diverticulosis, occasional back pain. History of Any Multi-Drug Resistant Organisms: None Reported Past Surgical History: Cholecystectomy, Orthopedic Surgery Additional Past Surgical History / Comment(s): 12/27/17 bronchoscopy with BAL/ brushings/bx, L great toe with plate, L knee arthroscopic ACL repair, R knee arthroscopy, EGD, colonoscopy, Past Anesthesia/Blood Transfusion Reactions: No Reported Reaction Smoking Status: Former smoker - Past Family History Mother Family Medical History: Cancer Additional Family Medical History / Comment(s): THROAT Sister(s) Family Medical History: Cancer Additional Family Medical History / Comment(s): LUNG Father Family Medical History: Diabetes Mellitus Medications and Allergies Home Medications Medication Instructions Recorded Confirmed Type Mirtazapine 30 mg PO HS 07/06/15 01/31/18 History Omeprazole [PriLOSEC] 20 mg PO BID 02/03/16 01/31/18 History clonazePAM [KlonoPIN] 1 mg PO BID PRN 02/03/16 01/31/18 History Buprenorphine HCl/Naloxone HCl 1 film SL DAILY 03/06/16 01/31/18 History [Suboxone 2 mg-0.5 mg Sl Film] Losartan Potassium 100 mg PO BID 02/10/17 01/31/18 History FLUoxetine HCL [PROzac] 20 mg PO DAILY 12/23/17 01/31/18 History Albuterol Inhaler [Ventolin Hfa 2 puff INHALATION RT-Q6H #1 inhaler 12/25/17 Rx Inhaler] Lisdexamfetamine Dimesylate 60 mg PO QAM 01/31/18 01/31/18 History [Vyvanse] Allergies Allergy/AdvReac Type Severity Reaction Status Date / Time naproxen sodium [From Aleve] Allergy Anaphylaxis Verified 01/31/18 07:58 venom-honey bee Allergy Anaphylaxis Verified 01/31/18 07:58 [bee venom (honey bee)] Physical Exam Vitals: Vital Signs Temp Pulse Pulse Resp BP BP Pulse Ox 01/31/18 09:23 97.8 F 01/31/18 09:18 97.2 F L 79 18 120/76 100 01/31/18 08:33 78 18 119/72 99 01/31/18 07:38 97.2 F L 01/31/18 07:04 18 152/73 01/31/18 05:28 77 18 109/63 97 01/31/18 04:30 20 124/74 97 01/31/18 03:46 83 20 114/61 98 01/31/18 03:07 82 20 161/117 98 01/31/18 02:02 97.6 F 94 18 91/62 98 Intake and Output 01/30/18 01/31/18 01/31/18 22:59 06:59 14:59 Other: Weight 83.915 kg - Constitutional General appearance: mild distress - EENT tenderness on palpation maxillary /frontal sinuses, L > R Eyes: EOMI, PERRLA ENT: hearing grossly normal, normal oropharynx - Neck Neck: no lymphadenopathy Thyroid: bilateral: normal size - Respiratory Respiratory: bilateral: CTA - Cardiovascular Rhythm: regular Heart sounds: normal: S1, S2 - Gastrointestinal General gastrointestinal: normal bowel sounds, soft - Integumentary Integumentary: normal - Neurologic Neurologic: CNII-XII intact - Musculoskeletal Musculoskeletal: generalized weakness, strength equal bilaterally - Psychiatric Psychiatric: A&O x's 3, appropriate affect Results CBC & Chem 7: 01/31/18 03:00 01/31/18 03:00 Labs: Abnormal Lab Results - Last 24 Hours (Table) 01/31/18 01/31/18 Range/Units 03:00 03:00 Hgb 12.8 L (13.0-17.5) gm/dL Lymphocytes # 0.8 L (1.0-4.8) k/uL Sodium 134 L (137-145) mmol/L Chloride 97 L (98-107) mmol/L Carbon Dioxide 32 H (22-30) mmol/L BUN 33 H (9-20) mg/dL Total Protein 6.2 L (6.3-8.2) g/dL Albumin 3.4 L (3.5-5.0) g/dL CT Scan - head: report reviewed MRI - head: report reviewed Assessment and Plan (1) Intractable headache Narrative/Plan: This is a new complaint for the patient. He denies any history of chronic headaches, suggestive migraines in the past. The patient did have a MRI prior to starting treatment, which was negative for any evidence of metastasis or leptomeningeal disease. CT scan of the brain suggest intracranial hypertension , which is a nonspecific finding. Singular patient is normal. - Etiology at this time is unclear. The acuity of presentation is not characteristic of metastatic disease. Possibilities include a new onset migraine, chemotherapy effect as well as the sinus related, given that prior MRI had shown sinusitis. Other etiologies are also not ruled out. - Given his history, MRI will be repeated - He reports poor relief with his current pain regimen. Dose of morphine will be increased, to be given at shorter frequencies. I will also add ibuprofen. He did have some hemoptysis, but has not had that for more than a week and in the interim has also started radiation to the primary tumor. If MRI of the brain shows no evidence of any structural abnormality, and headache persists, neurology consult may be beneficial Current Visit: Yes Status: Acute Code(s): R51 - HEADACHE SNOMED Code(s): 45184244 (2) Squamous cell lung cancer Narrative/Plan: the patient has Stage III squamous cell lung cancer, currently on concurrent chemoradiation with TEST CLERK-16 and cisplatin. So far he is subjectively tolerated treatment well. He was supposed to get her dose of cisplatin today as part of his first cycle. This will need to be held until his acute condition results. - Blood counts apparently satisfactory. Follow closely as a "drop in the next few days as he approaches his felicia. In that case supplement as needed Current Visit: Yes Status: Acute Code(s): C34.90 - MALIGNANT NEOPLASM OF UNSP PART OF UNSP BRONCHUS OR LUNG SNOMED Code(s): 860608916
[2018-01-31] MEDS: SALT AND SODA MOUTHWASH 1,000 ML PO SCH ×2 (19:40→20:43)
[2018-01-31] MEDS ORDERED: SODIUM CHLORIDE 0.9% 250 ML IV ONE (19:59)
--- NOTE | 2018-01-31 20:28 | CONS ---
CONSULTATION DATE OF CONSULTATION: 01/31/2018 CHIEF COMPLAINT: Intractable headache. HISTORY OF PRESENT ILLNESS: The patient is a pleasant 57-year-old male who was being evaluated by the neurology service per the request of Dr. Gotti for an intractable headache. The patient states that he started having this headache yesterday evening. He described it as a pressure pain mostly in the frontal region of the head. He took some over-the- counter analgesics and went to sleep at approximately 10:30 p.m. He woke up at 11:30 p.m. with an excruciating headache and he was brought to [facility] Emergency Room for further management. The patient was recently diagnosed with lung cancer and is receiving chemotherapy and radiation therapy. He does report some blurred vision when his headache is severe. He has been receiving morphine IV and Motrin for this headache. When he receives these analgesics, his headache pain score is reduced to 5/10 in intensity. He states that when the medications wear off, his pain score is 10/10 in intensity. He denies any fevers or recent head injuries. At the time of my evaluation, he is sitting up in his bed and appears to be in mild distress due to the headache. He rates it at 8/10 in intensity at the time of my evaluation. A CT scan of the brain was done in the emergency room which showed evidence of an expanded empty sella with flattening of bilateral globes. For this reason, an MRI of the brain with and without contrast was done which showed no abnormal enhancement. There was no evidence of any acute ischemia, and globes were described as normal. Small-vessel ischemic changes were seen. His CBC was normal. His comprehensive metabolic profile showed mild hyponatremia at 135 and slightly elevated BUN at 33. PAST MEDICAL HISTORY: 1. Lung cancer. 2. Chronic obstructive pulmonary disease. 3. Hypertension. 4. Gastroesophageal reflux disease. 5. History of cholecystectomy. 6. Bronchoscopy. 7. Left knee surgery. 8. Colonoscopy. SOCIAL HISTORY: The patient is a former smoker. He denies any alcohol or drug use. FAMILY HISTORY: Positive for cancer and diabetes. HOME MEDICATIONS: Reviewed in the chart. ALLERGIES: NAPROXEN and BEE STINGS. REVIEW OF SYSTEMS: CONSTITUTIONAL: As mentioned above. EYES: As mentioned above. ENT: Negative. CARDIOVASCULAR: Negative. RESPIRATORY: As mentioned above. NEUROLOGICAL: As mentioned above. He denies any lateralizing numbness or weakness. GASTROINTESTINAL: Positive for occasional heartburn. GENITOURINARY: Negative. PSYCHIATRIC: Negative. MUSCULOSKELETAL: Positive for occasional joint pain. ENDOCRINE: Negative. DERMATOLOGICAL: Negative. PHYSICAL EXAMINATION: Vital signs show a temperature of 96.5, pulse 75, respiration 18, blood pressure 92/60. GENERAL APPEARANCE: The patient is a well-developed male who appears to be in mild distress due to headache. HEENT: Normocephalic, atraumatic. No facial asymmetry is seen. NECK: Supple with no masses felt. CARDIOVASCULAR: Regular rate and rhythm. ABDOMEN: Non-tender non-distended. Extremities showed no edema or clubbing. NEUROLOGICAL EXAM: The patient is awake and oriented x3. Speech and language are normal. Strength is full in all 4 extremities. No pronator drift is seen. Sensory exam showed normal light touch sensation in all 4 extremities. No facial asymmetry is seen on cranial nerve testing. No tremors or seizure-like activity is seen. IMPRESSION: 1. Intractable headache. 2. Visual changes. 3. History of lung cancer. 4. Hypertension. RECOMMENDATION: The patient is still having a severe headache and his blood pressure is normal at this time. He is afebrile and has no nuchal rigidity on my examination. In the differential diagnosis is increased intracranial pressure and possible leptomeningeal metastasis. I do recommend a lumbar puncture under fluoroscopy, as the patient reports a significantly bad experience with a previous lumbar puncture done several years ago. Opening pressure should be measured and CSF cytology along with a cell count and CSF protein should be ordered. Oncology is following the patient. Continue analgesics with IV morphine as needed. Continue neuro checks. I will continue to follow with you. Further recommendations to follow. Thank you for allowing me to participate in the care of your patient. If you have any questions, please feel free to contact me. MMODL / IJN: [id number] /
[2018-02-01] MEDS: MORPHINE SULFATE 4 MG/ML SYRINGE IV PRN ×7 (02:06→22:37)
[2018-02-01] MEDS: FAMOTIDINE 20 MG TAB PO SCH ×2 (07:43→22:36)
[2018-02-01] MEDS: SALT AND SODA MOUTHWASH 1,000 ML PO SCH ×4 (07:44→21:20)
[2018-02-01] MEDS ORDERED: BUTALB/APAP/CAFF 50-325-40MG TAB PO STA (08:42)
[2018-02-01 09:14] LABS: Basophils % (A) 0 %; Eosinophils # (A) 0.2 k/uL (0-0.7); Eosinophils % (A) 4 %; HCT 37.7 % (39.0-53.0); HGB 12.7 gm/dL (13.0-17.5); Lymphocytes # (A) 0.4 k/uL (1.0-4.8); Lymphocytes % (A) 7 %; MCH 29.9 pg (25.0-35.0); MCHC 33.8 g/dL (31.0-37.0); MCV 88.5 fL (80.0-100.0); Mean Platelet Volume 6.6; Monocytes # (A) 0.1 k/uL (0-1.0); Monocytes % (A) 1 %; Neutrophils # (A) 4.8 k/uL (1.3-7.7); Neutrophils % (A) 88 %; Platelet Count 206 k/uL (150-450); RBC 4.26 m/uL (4.30-5.90); RDW 13.1 % (11.5-15.5); WBC 5.5 k/uL (3.8-10.6)
[2018-02-01 09:24] LABS: Anion Gap 9 mmol/L; Blood Urea Nitrogen 21 mg/dL (9-20); Calcium 8.5 mg/dL (8.4-10.2); Carbon Dioxide 20 mmol/L (22-30); Chloride 106 mmol/L (98-107); Glucose 101 mg/dL (74-99); Potassium 4.5 mmol/L (3.5-5.1); Sodium 135 mmol/L (137-145)
[2018-02-01 11:04] VITALS: BMI 28.1
--- NOTE | 2018-02-01 11:32 | P.PN ---
Subjective This is a pleasant 77 years old male with past medical history of lung cancer status post chemo and radiotherapy few days ago when he got his last chemotherapy on 01/28/2018. Hypertension, COPD, GERD, pneumonia, bronchitis. Previous smoker. Presents with headache. Patient states he has been getting chemo and radiotherapy overall last 5 days and he took the weekend off, however on Wednesday night yesterday at 10:30 PM he started to have headache and within half an hour to make some up from sleep. Patient states the pain is all over his head but is more around his eyes and face. Thrombing in character. Was about 9/10 in severity but now subsided with pain medication and after he ate. No associated nausea or vomiting. No weakness in arms or legs. No abnormal sensation. No blurred vision or slurred speech. No difficulty swallowing . Patient denies any chest pain. No dyspnea. No abdominal pain. No change in urine bowel habits. No fever. In the emergency room his CBC , LFT and BMP were unremarkable. CT of the head: No acute hemorrhage: Extended empty sella with a flattening of the posterior globes bilaterally and slightly tortuous optic nerve. Finding may represent intracranial hypertension. Patient has been already evaluated by the hematology team who recommended MRI of the brain which is going to be done this afternoon 01/31/2018 02/01/2018 Patient is still complaining from severe headache that is controlled with IV morphine every 3 hours, furosemide is added which helped the patient and want to keep it on. No new neurological deficit. No new weakness or numbness. No nausea vomiting. No chest pain or dyspnea. No change in her bowel habits. No fever.MRI of the brain no mass. Neurologist evaluation is appreciated . I discussed the case with Dr. Stuart yesterday and he recommended lumbar puncture for diagnostic purposes which can be done in the morning. We will check for CSF pressure, cell count, cytology and protein. Patient's want to be done under fluoroscopy so could not be done at bedside until next a morning. Objective - Vital Signs Vital signs: Vital Signs Temp 98.0 F 02/01/18 06:11 Pulse 78 02/01/18 06:11 Resp 16 02/01/18 06:11 BP 134/63 02/01/18 06:11 Pulse Ox 96 02/01/18 06:11 Intake & Output 01/31/18 02/01/18 02/01/18 18:59 06:59 18:59 Intake Total 100 Balance 100 Weight 83.915 kg Intake: Intake, IV Titration 100 Amount Sodium Chloride 0.9% 1, 100 000 ml @ 20 mls/hr IV . Q24H [facility] Rx#:[id number] Other: Voiding Method Toilet Urinal # Voids 6 - Exam GENERAL: The patient is alert and oriented x3, not in any acute distress. Well developed, well nourished. HEENT: Pupils are round and equally reacting to light. EOMI. No scleral icterus. No conjunctival pallor. Normocephalic, atraumatic. No pharyngeal erythema. No thyromegaly. CARDIOVASCULAR: S1 and S2 present. No murmurs, rubs, or gallops. PULMONARY: Chest is clear to auscultation, no wheezing or crackles. ABDOMEN: Soft, nontender, nondistended, normoactive bowel sounds. No palpable organomegaly. MUSCULOSKELETAL: No joint swelling or deformity. EXTREMITIES: No cyanosis, clubbing, or pedal edema. NEUROLOGICAL: Gross neurological examination did not reveal any focal deficits. SKIN: No rashes. - Labs CBC & Chem 7: 02/01/18 08:20 02/01/18 08:20 Labs: Abnormal Lab Results - Last 24 Hours (Table) 02/01/18 02/01/18 Range/Units 08:20 08:20 RBC 4.26 L (4.30-5.90) m/uL Hgb 12.7 L (13.0-17.5) gm/dL Hct 37.7 L (39.0-53.0) % Lymphocytes # 0.4 L (1.0-4.8) k/uL Sodium 135 L (137-145) mmol/L Carbon Dioxide 20 L (22-30) mmol/L BUN 21 H (9-20) mg/dL Glucose 101 H (74-99) mg/dL Assessment and Plan Assessment: Severe headache recent h/o Lung cancer status post chemo and radiotherapy.his last chemotherapy on 01/28/2018. Hypertension, essential COPD, not in acute exacerbation GERD pneumonia/bronchitis Plan: This is a pleasant 57 years old male was recently diagnosed with lung cancer. He got his last chemotherapy 3-4 days prior to admission. He'll comes with severe headache. Continue with same treatment. Continue with pain management. Continue with symptomatic treatment. Resume home medication. Monitor lytes and vitals. Neurology consult. Hematology/oncology consult. Recommended MRI of the brain. GI and DVT prophylaxis. Further recommendations based on the clinical course of the patient DVT prophylaxis: Patient is mobile. Continue with mechanical. Heparin has more than benefits at this point GI prophylaxis: Pepcid
--- NOTE | 2018-02-01 11:56 | P.PCN ---
Date of Procedure: 02/01/18 Procedure(s) Performed: Preoperative diagnosis: Intractable headache Post operative diagnoses: Intractable headache Anesthesia= local infiltration with lidocaine 1% 4 mL. (only ) Condition: stable Complication: none. Description of the procedure procedure risk and benefits discussed with the patient and family, consent signed. Patient and the procedure area placed in Right lateral position , ( right side down ) ,back prepped with chlorhexidine 3 times been local infiltration of the skin and subcutaneous tissue with lidocaine 1% 4 mL for skin and subcu interstitial frustrations ,at L4 5 levels then 22-gauge Quincke-type needle advanced slowly at L4- 5 interlaminar space there was positive cerebrospinal fluid which was clear, no heme, no paresthesia ,total of 9 ML of clear cerebrospinal fluid collected in 4 different tubes 2-2 -1/2 mL in each, then the needle removed and a Band-Aid applied and patient tolerated the procedure well without any complications. Opening pressure = 22 cm water. Closing pressure= 18 cm water , measured after removal of 9 ml of cerebrospinal fluid.
[2018-02-01] MEDS ORDERED: clonazePAM 1 MG TAB PO PRN (12:38)
[2018-02-01 13:40] LABS: Appearance,CSF Clear; CSF Tube Number 4; Nucleated Cells, CSF 1 u/L (0-5); Red Blood Cell,CSF 0 u/L (0-10)
[2018-02-01 13:48] LABS: Total Protein,CSF 49 mg/dL (12-60)
[2018-02-01] MEDS: FLUoxetine HCL 20 MG CAP PO SCH (14:11)
[2018-02-01] MEDS: BUTALB/APAP/CAFF 50-325-40MG TAB PO PRN ×3 (14:11→21:20)
[2018-02-01] MEDS: ALBUTEROL NEBULIZED 2.5 MG/3 ML INHALATION SCH ×2 (16:17→20:58)
--- NOTE | 2018-02-01 20:16 | P.PN ---
Subjective Progress Note Date: 02/01/18 The pt has persistent HUNTER , with no improvement so far. Symptoms are partially controlled by current pain regimen Objective - Vital Signs Vital signs: Vital Signs Temp 98.7 F 02/01/18 15:00 Pulse 87 02/01/18 15:00 Resp 16 02/01/18 15:00 BP 133/81 02/01/18 15:00 Pulse Ox 97 02/01/18 15:00 Intake & Output 02/01/18 02/01/18 02/02/18 06:59 18:59 06:59 Weight 83.915 kg Other: Voiding Method Toilet Urinal # Voids 6 2 - Constitutional General appearance: Present: mild distress - EENT ENT: Present: hearing grossly normal - Respiratory Respiratory: bilateral: CTA - Cardiovascular Heart sounds: normal: S1, S2 - Gastrointestinal General gastrointestinal: Present: soft - Neurologic Neurologic: Present: CNII-XII intact - Musculoskeletal Musculoskeletal: Present: generalized weakness, strength equal bilaterally - Psychiatric Psychiatric: Present: A&O x's 3, appropriate affect - Labs CBC & Chem 7: 02/01/18 08:20 02/01/18 08:20 Labs: Abnormal Lab Results - Last 24 Hours (Table) 02/01/18 02/01/18 Range/Units 08:20 08:20 RBC 4.26 L (4.30-5.90) m/uL Hgb 12.7 L (13.0-17.5) gm/dL Hct 37.7 L (39.0-53.0) % Lymphocytes # 0.4 L (1.0-4.8) k/uL Sodium 135 L (137-145) mmol/L Carbon Dioxide 20 L (22-30) mmol/L BUN 21 H (9-20) mg/dL Glucose 101 H (74-99) mg/dL Assessment and Plan (1) Intractable headache Narrative/Plan: MRI did show any specific abnormality. Neurology has been consulted, and LP has been requested. Fully agree with the same as the next step in w/u. This would help to r/o leptomeningeal carcinomatosis, as well as aseptic meningitis due to treatment, among others. Differentials also include chemo related ( non inflammatory) HUNTER, which would have to be a diagnosis of exclusion. - Continue pain control measures - Await results of LP Current Visit: Yes Status: Acute Code(s): R51 - HEADACHE SNOMED Code(s): 15280341 (2) Squamous cell lung cancer Narrative/Plan: Treatment on hold due to acute complaints. Monitor counts. these remain in a safe range so far Current Visit: Yes Status: Acute Code(s): C34.90 - MALIGNANT NEOPLASM OF UNSP PART OF UNSP BRONCHUS OR LUNG SNOMED Code(s): 482828078
[2018-02-01] MEDS: MIRTAZAPINE 15 MG TAB PO SCH (21:18)
[2018-02-01] MEDS: acetaZOLAMIDE 250 MG TAB PO SCH (21:19)
--- NOTE | 2018-02-01 22:42 | P.PN ---
Subjective Progress Note Date: 02/01/18 Principal diagnosis: Intractable Headache Neurology is following on a 57-year-old male being treated for intractable headache. Patient started having a headache approximate 48 hours ago. Patient s headache/head pain is described as primarily in the frontal region. Patient took [id number] analgesia and went to sleep at approximately 2230 hours 2 days ago. Patient woke up approximately one hour later and was an excruciating headache and was brought to the ED for evaluation. Patient was recently diagnosed with lung cancer and was receiving chemotherapy and radiation therapy. Patient reported blurry vision when headache was noted to be severe. Patient had been placed on IV morphine and Motrin for his headache. When receiving medications, he noted his pain score is reduced to a 5/10 in intensity. When medications begin to wear off his score increases to 10/10 in intensity. Patient did not have any fevers or recent head injury. Prior imaging included a CT of the brain done in the emergency room which showed evidence of an expanded empty sella with flattening of the bilateral globes. MRI of the brain was conducted with and without contrast which showed no abnormal enhancement. There was no evidence of any acute ischemia and globes were described as normal. Small vessel ischemic changes were noted. CBC was normal. CMP showed mild hyponatremia at that time. Slightly elevated BUN was also noted. Patient was admitted for further diagnostic workup and evaluation. At the time of evaluation/contact, patient was ambulating in the room, family members were also present in the room including his and daughter. Patient stated that his head pain was intolerable. He states that nothing is managing his pain is tolerable. He states he has not slept in greater than 2 days. Patient currently rates his pain as a 10 out of 10. Patient is requesting medication including opioid/narcotic medication. He is also requesting medication to assist with sleep. Patient was advised that his primary team would be made aware of his concerns and requests. Per nursing staff his team is aware of these requests as they have been made multiple times throughout the day. Patient did have a lumbar puncture that was ordered by supervising physician for opening pressure and cytology today. Some preliminary results were obtained and reviewed with the patient including: Lumbar puncture opening pressure was noted to be 22 with a normal of 20, specimen was sent for cytology which is currently pending. Supervising physician was notified of results via phone. Objective - Vital Signs Vital signs: Vital Signs Temp 98.7 F 02/01/18 15:00 Pulse 87 02/01/18 15:00 Resp 16 02/01/18 15:00 BP 133/81 02/01/18 15:00 Pulse Ox 97 02/01/18 15:00 Intake & Output 02/01/18 02/01/18 02/02/18 06:59 18:59 06:59 Weight 83.915 kg Other: Voiding Method Toilet Urinal # Voids 6 2 - Exam General appearance: Alert & oriented x3, no apparent distress. Head: Atraumatic, normocephalic, normal inspection Eyes: Well appearance, PERRLA, EOMI. Absent scleral icterus, conjunctival injection, nystagmus, periorbital swelling. Ear, nose and throat: Normal exam, mucous membranes moist Neck: Normal inspection, absent tenderness, lymphadenopathy. Respiratory: No increased work of breathing Cardiovascular: Regular rate, rhythm GI/abdominal: No guarding Extremities: Full range of motion, normal capillary refill, no tenderness, pedal edema joint swelling, calf tenderness. Neurological: cranial nerves II through XII intact no lateralizing weakness no seizure activity noted on physical exam no pronator drift and no nystagmus. Left lower extremity: 5/5 Right lower extremity: 5/5 Left upper extremity: 5/5 Right upper extremity:5 /5 Sensation: Left lower extremity: normal Right lower extremity: normal Left upper extremity: normal Right upper extremity:normal Psychological: Mood and Affect appropriate for setting - Labs CBC & Chem 7: 02/01/18 08:20 02/01/18 08:20 Labs: Abnormal Lab Results - Last 24 Hours (Table) 02/01/18 02/01/18 Range/Units 08:20 08:20 RBC 4.26 L (4.30-5.90) m/uL Hgb 12.7 L (13.0-17.5) gm/dL Hct 37.7 L (39.0-53.0) % Lymphocytes # 0.4 L (1.0-4.8) k/uL Sodium 135 L (137-145) mmol/L Carbon Dioxide 20 L (22-30) mmol/L BUN 21 H (9-20) mg/dL Glucose 101 H (74-99) mg/dL Assessment and Plan (1) Intractable headache Current Visit: Yes Status: Acute Code(s): R51 - HEADACHE SNOMED Code(s): 41421621 (2) Primary lung cancer Current Visit: No Status: Acute Code(s): C34.90 - MALIGNANT NEOPLASM OF UNSP PART OF UNSP BRONCHUS OR LUNG SNOMED Code(s): 46673245 (3) Visual changes Current Visit: Yes Status: Acute Code(s): H53.9 - UNSPECIFIED VISUAL DISTURBANCE SNOMED Code(s): 049509046 Plan: At this time, neurology notes that the patient is still having severe headache, is afebrile and has no nuchal rigidity. The patients opening lumbar puncture pressure being slightly elevated at 22. It is still possible that the patient has leptomeningeal metastasis as cytology results are still pending. Given the patient head pain complaints are still significant and the noted elevated opening pressure, patient will be started on Diamox 250 mg twice a day as a starting dose. Neurology will continue to follow through at least the next 48-72 hours and until cytology results are known. Neurology will continue to provide follow-up and recommendations as needed or warranted. Neurology to be notified with any neurological status changes immediately. I have discussed the plan of care with the physician prior to implementation and he agrees with the plan as implemented.
[2018-02-02] MEDS: MORPHINE SULFATE 4 MG/ML SYRINGE IV PRN ×5 (01:52→21:18)
[2018-02-02] MEDS: MELATONIN 3 MG TABLET PO SCH (02:36)
[2018-02-02] MEDS: ALBUTEROL NEBULIZED 2.5 MG/3 ML INHALATION SCH ×4 (04:06→20:11)
[2018-02-02] MEDS: BUTALB/APAP/CAFF 50-325-40MG TAB PO PRN ×2 (06:21→10:39)
[2018-02-02] MEDS: SALT AND SODA MOUTHWASH 1,000 ML PO SCH ×4 (07:55→21:21)
[2018-02-02] MEDS: SODIUM CHLORIDE 0.9% 1,000 ML IV SCH (07:55)
[2018-02-02] MEDS: FAMOTIDINE 20 MG TAB PO SCH ×2 (07:56→21:17)
[2018-02-02] MEDS: FLUoxetine HCL 20 MG CAP PO SCH (07:56)
[2018-02-02] MEDS: acetaZOLAMIDE 250 MG TAB PO SCH ×2 (07:56→21:17)
[2018-02-02 09:12] LABS: Basophils % (A) 0 %; Eosinophils # (A) 0.2 k/uL (0-0.7); Eosinophils % (A) 4 %; HCT 41.1 % (39.0-53.0); Lymphocytes # (A) 0.3 k/uL (1.0-4.8); Lymphocytes % (A) 8 %; MCH 28.1 pg (25.0-35.0); MCHC 31.7 g/dL (31.0-37.0); MCV 88.6 fL (80.0-100.0); Mean Platelet Volume 6.7; Monocytes # (A) 0.1 k/uL (0-1.0); Monocytes % (A) 2 %; Neutrophils # (A) 3.7 k/uL (1.3-7.7); Neutrophils % (A) 86 %; Platelet Count 213 k/uL (150-450); RBC 4.63 m/uL (4.30-5.90); RDW 13.1 % (11.5-15.5); WBC 4.3 k/uL (3.8-10.6)
[2018-02-02 09:35] LABS: Anion Gap 11 mmol/L; Blood Urea Nitrogen 20 mg/dL (9-20); Calcium 8.9 mg/dL (8.4-10.2); Carbon Dioxide 22 mmol/L (22-30); Chloride 106 mmol/L (98-107); Glucose 106 mg/dL (74-99); Potassium 4.1 mmol/L (3.5-5.1); Sodium 139 mmol/L (137-145)
[2018-02-02] MEDS ORDERED: MORPHINE SULFATE 4 MG/ML SYRINGE IV PRN (12:15)
--- NOTE | 2018-02-02 12:17 | P.PN ---
Subjective This is a pleasant 77 years old male with past medical history of lung cancer status post chemo and radiotherapy few days ago when he got his last chemotherapy on 01/28/2018. Hypertension, COPD, GERD, pneumonia, bronchitis. Previous smoker. Presents with headache. Patient states he has been getting chemo and radiotherapy overall last 5 days and he took the weekend off, however on Wednesday night yesterday at 10:30 PM he started to have headache and within half an hour to make some up from sleep. Patient states the pain is all over his head but is more around his eyes and face. Thrombing in character. Was about 9/10 in severity but now subsided with pain medication and after he ate. No associated nausea or vomiting. No weakness in arms or legs. No abnormal sensation. No blurred vision or slurred speech. No difficulty swallowing . Patient denies any chest pain. No dyspnea. No abdominal pain. No change in urine bowel habits. No fever. In the emergency room his CBC , LFT and BMP were unremarkable. CT of the head: No acute hemorrhage: Extended empty sella with a flattening of the posterior globes bilaterally and slightly tortuous optic nerve. Finding may represent intracranial hypertension. Patient has been already evaluated by the hematology team who recommended MRI of the brain which is going to be done this afternoon 01/31/2018 02/01/2018 Patient is still complaining from severe headache that is controlled with IV morphine every 3 hours, furosemide is added which helped the patient and want to keep it on. No new neurological deficit. No new weakness or numbness. No nausea vomiting. No chest pain or dyspnea. No change in her bowel habits. No fever.MRI of the brain no mass. Neurologist evaluation is appreciated . I discussed the case with Dr. Stuart yesterday and he recommended lumbar puncture for diagnostic purposes which can be done in the morning. We will check for CSF pressure, cell count, cytology and protein. Patient's want to be done under fluoroscopy so could not be done at bedside until next a morning. 02/02/2018 Patient had lumbar puncture yesterday and his operative pressure was 22 cm of water. Noted on Diamox 250 mg twice a day. Patient still complaining of from severe headache as same his came in with. He is on IV morphine 5 mg every 3 hours and Fioricet every 4 hours. we will increase his morphine to 7 mg. And put him on [place] 10 when necessary. Vitals are stable. Results from CSF are still pending. Patient and family at bedside all questions are answered to their satisfaction line discussed with staff Objective - Vital Signs Vital signs: Vital Signs Temp 99.2 F 02/02/18 06:18 Pulse 87 02/02/18 06:18 Resp 18 02/02/18 06:18 BP 105/69 02/02/18 06:18 Pulse Ox 95 02/02/18 06:18 Intake & Output 02/01/18 02/02/18 02/02/18 18:59 06:59 18:59 Weight 83.915 kg Other: Voiding Method Toilet Urinal # Voids 2 1 - Exam GENERAL: The patient is alert and oriented x3, not in any acute distress. Well developed, well nourished. HEENT: Pupils are round and equally reacting to light. EOMI. No scleral icterus. No conjunctival pallor. Normocephalic, atraumatic. No pharyngeal erythema. No thyromegaly. CARDIOVASCULAR: S1 and S2 present. No murmurs, rubs, or gallops. PULMONARY: Chest is clear to auscultation, no wheezing or crackles. ABDOMEN: Soft, nontender, nondistended, normoactive bowel sounds. No palpable organomegaly. MUSCULOSKELETAL: No joint swelling or deformity. EXTREMITIES: No cyanosis, clubbing, or pedal edema. NEUROLOGICAL: Gross neurological examination did not reveal any focal deficits. SKIN: No rashes. - Labs CBC & Chem 7: 02/02/18 08:19 02/02/18 08:19 Labs: Abnormal Lab Results - Last 24 Hours (Table) 02/02/18 02/02/18 Range/Units 08:19 08:19 Lymphocytes # 0.3 L (1.0-4.8) k/uL Glucose 106 H (74-99) mg/dL Assessment and Plan Assessment: Severe headache Increased intracranial pressure, started on Diamox recent h/o Lung cancer status post chemo and radiotherapy.his last chemotherapy on 01/28/2018. Hypertension, essential COPD, not in acute exacerbation GERD pneumonia/bronchitis Plan: This is a pleasant 57 years old male was recently diagnosed with lung cancer. He got his last chemotherapy 3-4 days prior to admission. He'll comes with severe headache. Continue with same treatment. Continue with pain management. Continue with symptomatic treatment. Resume home medication. Monitor lytes and vitals. Neurology consult. Hematology/oncology consult. Recommended MRI of the brain. GI and DVT prophylaxis. Further recommendations based on the clinical course of the patient DVT prophylaxis: Patient is mobile. Continue with mechanical. Heparin has more than benefits at this point GI prophylaxis: Pepcid
[2018-02-02] MEDS: HYDROcodone/APAP 10-325MG 1 EACH TAB PO PRN (15:07)
[2018-02-02] MEDS: MIRTAZAPINE 15 MG TAB PO SCH (21:17)
--- NOTE | 2018-02-02 21:41 | P.PN ---
Subjective Progress Note Date: 02/02/18 Principal diagnosis: Intractable Headache Neurology is following on a 57-year-old male being treated for intractable headache. Patient started having a headache approximate 48 hours ago. Patient s headache/head pain is described as primarily in the frontal region. Patient took [id number]-[id number] analgesia and went to sleep at approximately 2230 hours 2 days ago. Patient woke up approximately one hour later and was an excruciating headache and was brought to the ED for evaluation. Patient was recently diagnosed with lung cancer and was receiving chemotherapy and radiation therapy. Patient reported blurry vision when headache was noted to be severe. Patient had been placed on IV morphine and Motrin for his headache. When receiving medications, he noted his pain score is reduced to a 5/10 in intensity. When medications begin to wear off his score increases to 10/10 in intensity. Patient did not have any fevers or recent head injury. Prior imaging included a CT of the brain done in the emergency room which showed evidence of an expanded empty sella with flattening of the bilateral globes. MRI of the brain was conducted with and without contrast which showed no abnormal enhancement. There was no evidence of any acute ischemia and globes were described as normal. Small vessel ischemic changes were noted. CBC was normal. CMP showed mild hyponatremia at that time. Slightly elevated BUN was also noted. Patient was admitted for further diagnostic workup and evaluation. At the time of evaluation/contact, patient was ambulating in the room, family members were also present in the room including his and daughter. Patient stated that his head pain was intolerable. He states that nothing is managing his pain is tolerable. He states he has not slept in greater than 2 days. Patient currently rates his pain as a 10 out of 10. Patient is requesting medication including opioid/narcotic medication. He is also requesting medication to assist with sleep. Patient was advised that his primary team would be made aware of his concerns and requests. Per nursing staff his team is aware of these requests as they have been made multiple times throughout the day. Patient did have a lumbar puncture that was ordered by supervising physician for opening pressure and cytology today. Some preliminary results were obtained and reviewed with the patient including: Lumbar puncture opening pressure was noted to be 22 with a normal of 20, specimen was sent for cytology which is currently pending. Supervising physician was notified of results via phone. Interval Update 02/02/18: Patient is alert and oriented 3, family and the room, no acute distress. Patient states that the Diamox has not improved his head pain. 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 Discussed matter with supervising physician and he recommends increasing Diamox to 500 mg twice a day for the next 24 hours and reassessing tomorrow. Further recommendations to be provided on rounding on . Objective - Vital Signs Vital signs: Vital Signs Temp 99.2 F 02/02/18 06:18 Pulse 83 02/02/18 15:00 Resp 20 02/02/18 15:00 BP 122/79 02/02/18 15:00 Pulse Ox 99 02/02/18 15:00 Intake & Output 02/02/18 02/02/18 02/03/18 06:59 18:59 06:59 Other: Voiding Method Toilet Urinal # Voids 1 1 - Exam General appearance: Alert & oriented x3, no apparent distress. Head: Atraumatic, normocephalic, normal inspection Eyes: Well appearance, PERRLA, EOMI. Absent scleral icterus, conjunctival injection, nystagmus, periorbital swelling. Ear, nose and throat: Normal exam, mucous membranes moist Neck: Normal inspection, absent tenderness, lymphadenopathy. Respiratory: No increased work of breathing Cardiovascular: Regular rate, rhythm GI/abdominal: No guarding Extremities: Full range of motion, normal capillary refill, no tenderness, pedal edema joint swelling, calf tenderness. Neurological: cranial nerves II through XII intact no lateralizing weakness no seizure activity noted on physical exam no pronator drift and no nystagmus. Left lower extremity: 5/5 Right lower extremity: 5/5 Left upper extremity: 5/5 Right upper extremity:5 /5 Sensation: Left lower extremity: normal Right lower extremity: normal Left upper extremity: normal Right upper extremity:normal Psychological: Mood and Affect appropriate for setting - Labs CBC & Chem 7: 02/02/18 08:19 02/02/18 08:19 Labs: Abnormal Lab Results - Last 24 Hours (Table) 02/02/18 02/02/18 Range/Units 08:19 08:19 Lymphocytes # 0.3 L (1.0-4.8) k/uL Glucose 106 H (74-99) mg/dL Assessment and Plan (1) Intractable headache Current Visit: Yes Status: Acute Code(s): R51 - HEADACHE SNOMED Code(s): 24851298 (2) Primary lung cancer Current Visit: No Status: Acute Code(s): C34.90 - MALIGNANT NEOPLASM OF UNSP PART OF UNSP BRONCHUS OR LUNG SNOMED Code(s): 28093127 (3) Visual changes Current Visit: Yes Status: Acute Code(s): H53.9 - UNSPECIFIED VISUAL DISTURBANCE SNOMED Code(s): 603156301 Plan: At this time, neurology notes that the patient is still having severe headache, is afebrile and has no nuchal rigidity. The patients opening lumbar puncture pressure being slightly elevated at 22. It is still possible that the patient has leptomeningeal metastasis as cytology results are still pending. Given the patient head pain complaints are still significant and the noted elevated opening pressure, patient will be increased on Diamox to 500 mg twice a day. Neurology will continue to follow until cytology results are known. Neurology will continue to provide follow-up and recommendations as needed or warranted. Neurology to be notified with any neurological status changes immediately. I have discussed the plan of care with the physician prior to implementation and he agrees with the plan as implemented.
[2018-02-03] MEDS: MELATONIN 3 MG TABLET PO SCH (00:12)
[2018-02-03] MEDS: ALBUTEROL NEBULIZED 2.5 MG/3 ML INHALATION SCH ×3 (00:20→13:22)
[2018-02-03] MEDS: HYDROcodone/APAP 10-325MG 1 EACH TAB PO PRN ×2 (04:06→10:32)
[2018-02-03] MEDS: SALT AND SODA MOUTHWASH 1,000 ML PO SCH ×2 (07:48→12:12)
[2018-02-03 08:29] LABS: Anion Gap 10 mmol/L; Blood Urea Nitrogen 17 mg/dL (9-20); Calcium 8.6 mg/dL (8.4-10.2); Carbon Dioxide 18 mmol/L (22-30); Chloride 109 mmol/L (98-107); Glucose 88 mg/dL (74-99); Sodium 137 mmol/L (137-145)
[2018-02-03] MEDS: acetaZOLAMIDE 250 MG TAB PO SCH (08:49)
[2018-02-03] MEDS: SODIUM CHLORIDE 0.9% 1,000 ML IV SCH (08:49)
[2018-02-03] MEDS: BUTALB/APAP/CAFF 50-325-40MG TAB PO PRN ×2 (08:50→16:30)
[2018-02-03] MEDS: FAMOTIDINE 20 MG TAB PO SCH (08:52)
[2018-02-03] MEDS: FLUoxetine HCL 20 MG CAP PO SCH (08:52)
--- NOTE | 2018-02-03 12:31 | P.PN ---
Subjective This is a pleasant 77 years old male with past medical history of lung cancer status post chemo and radiotherapy few days ago when he got his last chemotherapy on 01/28/2018. Hypertension, COPD, GERD, pneumonia, bronchitis. Previous smoker. Presents with headache. Patient states he has been getting chemo and radiotherapy overall last 5 days and he took the weekend off, however on Wednesday night yesterday at 10:30 PM he started to have headache and within half an hour to make some up from sleep. Patient states the pain is all over his head but is more around his eyes and face. Thrombing in character. Was about 9/10 in severity but now subsided with pain medication and after he ate. No associated nausea or vomiting. No weakness in arms or legs. No abnormal sensation. No blurred vision or slurred speech. No difficulty swallowing . Patient denies any chest pain. No dyspnea. No abdominal pain. No change in urine bowel habits. No fever. In the emergency room his CBC , LFT and BMP were unremarkable. CT of the head: No acute hemorrhage: Extended empty sella with a flattening of the posterior globes bilaterally and slightly tortuous optic nerve. Finding may represent intracranial hypertension. Patient has been already evaluated by the hematology team who recommended MRI of the brain which is going to be done this afternoon 01/31/2018 02/01/2018 Patient is still complaining from severe headache that is controlled with IV morphine every 3 hours, furosemide is added which helped the patient and want to keep it on. No new neurological deficit. No new weakness or numbness. No nausea vomiting. No chest pain or dyspnea. No change in her bowel habits. No fever.MRI of the brain no mass. Neurologist evaluation is appreciated . I discussed the case with Dr. Stuart yesterday and he recommended lumbar puncture for diagnostic purposes which can be done in the morning. We will check for CSF pressure, cell count, cytology and protein. Patient's want to be done under fluoroscopy so could not be done at bedside until next a morning. 02/02/2018 Patient had lumbar puncture yesterday and his operative pressure was 22 cm of water. Noted on Diamox 250 mg twice a day. Patient still complaining of from severe headache as same his came in with. He is on IV morphine 5 mg every 3 hours and Fioricet every 4 hours. we will increase his morphine to 7 mg. And put him on [place] 10 when necessary. Vitals are stable. Results from CSF are still pending. Patient and family at bedside all questions are answered to their satisfaction line discussed with staff 02/03/2018 Patient headache today is much better, after he started on Diamox and increased the dose to 500 mg twice a day. He told me today that his headache could be controlled with urosepsis. Going for radiotherapy yesterday and today area continue with IV hydration. Continue with pain management. The rest of the results from CSF Are still pending Objective - Vital Signs Vital signs: Vital Signs Temp 98.6 F 02/03/18 07:00 Pulse 73 02/03/18 07:00 Resp 18 02/03/18 07:00 BP 118/72 02/03/18 07:00 Pulse Ox 97 02/03/18 07:00 Intake & Output 02/02/18 02/03/18 02/03/18 18:59 06:59 18:59 Intake Total 900 Balance 900 Intake: Oral 900 Other: Voiding Method Toilet Urinal # Voids 1 2 - Exam GENERAL: The patient is alert and oriented x3, not in any acute distress. Well developed, well nourished. HEENT: Pupils are round and equally reacting to light. EOMI. No scleral icterus. No conjunctival pallor. Normocephalic, atraumatic. No pharyngeal erythema. No thyromegaly. CARDIOVASCULAR: S1 and S2 present. No murmurs, rubs, or gallops. PULMONARY: Chest is clear to auscultation, no wheezing or crackles. ABDOMEN: Soft, nontender, nondistended, normoactive bowel sounds. No palpable organomegaly. MUSCULOSKELETAL: No joint swelling or deformity. EXTREMITIES: No cyanosis, clubbing, or pedal edema. NEUROLOGICAL: Gross neurological examination did not reveal any focal deficits. SKIN: No rashes. - Labs CBC & Chem 7: 02/02/18 08:19 02/03/18 07:05 Labs: Abnormal Lab Results - Last 24 Hours (Table) 02/03/18 Range/Units 07:05 Chloride 109 H (98-107) mmol/L Carbon Dioxide 18 L (22-30) mmol/L Assessment and Plan Assessment: Severe headache Increased intracranial pressure, started on Diamox recent h/o Lung cancer status post chemo and radiotherapy.his last chemotherapy on 01/28/2018. Hypertension, essential COPD, not in acute exacerbation GERD pneumonia/bronchitis Plan: This is a pleasant 57 years old male was recently diagnosed with lung cancer. He got his last chemotherapy 3-4 days prior to admission. He'll comes with severe headache. Continue with same treatment. Continue with pain management. Continue with symptomatic treatment. Resume home medication. Monitor lytes and vitals. Neurology consult. Hematology/oncology consult. Recommended MRI of the brain. GI and DVT prophylaxis. Further recommendations based on the clinical course of the patient DVT prophylaxis: Patient is mobile. Continue with mechanical. Heparin has more than benefits at this point GI prophylaxis: Pepcid
[2018-02-03 16:10] VITALS: BP 123/77; PULSE 87; RESP 20; TEMP 97.9
--- NOTE | 2018-02-03 19:34 | P.PN ---
Subjective Progress Note Date: 02/03/18 The patient states that his headache is much improved. He now rates his pain as 3-4/10. He is not requiring the IV morphine significantly at this time. He tolerated his lumbar puncture well. He denies any nausea, vomiting, or visual complaints. No history of fever/chills/mental status changes. He was complaining of heartburn and indigestion as well as some nausea overnight. Objective - Vital Signs Vital signs: Vital Signs Temp 97.9 F 02/03/18 15:00 Pulse 87 02/03/18 15:00 Resp 20 02/03/18 15:00 BP 123/77 02/03/18 15:00 Pulse Ox 97 02/03/18 15:00 Intake & Output 02/03/18 02/03/18 02/04/18 06:59 18:59 06:59 Intake Total 900 460 Balance 900 460 Weight 83.915 kg Intake: Intake, IV Titration 100 Amount Sodium Chloride 0.9% 1, 100 000 ml @ 20 mls/hr IV . Q24H [facility] Rx#:[id number] Oral 900 360 Other: Voiding Method Toilet Toilet Urinal # Voids 2 3 - Constitutional General appearance: Present: no acute distress - EENT Eyes: Present: EOMI ENT: Present: hearing grossly normal, normal oropharynx - Respiratory Respiratory: bilateral: CTA - Cardiovascular Rhythm: regular Heart sounds: normal: S1, S2 - Gastrointestinal General gastrointestinal: Present: normal bowel sounds, soft - Integumentary Integumentary: Present: normal - Neurologic Neurologic: Present: CNII-XII intact - Musculoskeletal Musculoskeletal: Present: strength equal bilaterally - Psychiatric Psychiatric: Present: A&O x's 3, appropriate affect - Labs CBC & Chem 7: 02/02/18 08:19 02/03/18 07:05 Labs: Abnormal Lab Results - Last 24 Hours (Table) 02/03/18 Range/Units 07:05 Chloride 109 H (98-107) mmol/L Carbon Dioxide 18 L (22-30) mmol/L Assessment and Plan (1) Intractable headache Narrative/Plan: This has markedly improved. Workup so far has been mostly negative. As noted previously MRI did not show any specific pathology, including evidence of increased intracranial pressure, or leptomeningeal enhancement. The patient subsequently had a LP. The results and implications were discussed in detail. Cytology is negative. In addition the normal protein level, and normal white cells and red cells, essentially rule out malignant involvement, infection or interventricular bleed. At the time of the puncture, there was slight increase in opening pressure noted. The degree was quite mild and is nonspecific. Diamox was increased by neurology. However it is not clear if this is the cause of his headache. Therefore at this time, chemotherapy effect cannot be totally ruled out. As the patient is significantly improved, he can be discharged from our standpoint. Status: Acute Code(s): R51 - HEADACHE SNOMED Code(s): 46130887 (2) Squamous cell lung cancer Narrative/Plan: He has resumed radiation. The office will contact him to reschedule his cisplatin dosing from cycle #1. As noted above, chemotherapy effect causing his headache, due to etoposide cannot be totally ruled out. The implications of the same were discussed in detail with him and his family. An option would be to change his chemotherapy, versus continuing with the same regimen , given that the diagnosis is not definite. At this time it was decided that they would discuss both options with Dr. Shell in the office during their upcoming visit. Status: Acute Code(s): C34.90 - MALIGNANT NEOPLASM OF UNSP PART OF UNSP BRONCHUS OR LUNG SNOMED Code(s): 874793766
--- NOTE | 2018-02-03 20:33 | P.PN ---
Subjective Progress Note Date: 02/03/18 Principal diagnosis: Intractable Headache Neurology is following on a 57-year-old male being treated for intractable headache. Patient started having a headache approximate 48 hours ago. Patient s headache/head pain is described as primarily in the frontal region. Patient took yvza-chf-esjvqpv analgesia and went to sleep at approximately 2230 hours 2 days ago. Patient woke up approximately one hour later and was an excruciating headache and was brought to the ED for evaluation. Patient was recently diagnosed with lung cancer and was receiving chemotherapy and radiation therapy. Patient reported blurry vision when headache was noted to be severe. Patient had been placed on IV morphine and Motrin for his headache. When receiving medications, he noted his pain score is reduced to a 5/10 in intensity. When medications begin to wear off his score increases to 10/10 in intensity. Patient did not have any fevers or recent head injury. Prior imaging included a CT of the brain done in the emergency room which showed evidence of an expanded empty sella with flattening of the bilateral globes. MRI of the brain was conducted with and without contrast which showed no abnormal enhancement. There was no evidence of any acute ischemia and globes were described as normal. Small vessel ischemic changes were noted. CBC was normal. CMP showed mild hyponatremia at that time. Slightly elevated BUN was also noted. Patient was admitted for further diagnostic workup and evaluation. At the time of evaluation/contact, patient was ambulating in the room, family members were also present in the room including his and daughter. Patient stated that his head pain was intolerable. He states that nothing is managing his pain is tolerable. He states he has not slept in greater than 2 days. Patient currently rates his pain as a 10 out of 10. Patient is requesting medication including opioid/narcotic medication. He is also requesting medication to assist with sleep. Patient was advised that his primary team would be made aware of his concerns and requests. Per nursing staff his team is aware of these requests as they have been made multiple times throughout the day. Patient did have a lumbar puncture that was ordered by supervising physician for opening pressure and cytology today. Some preliminary results were obtained and reviewed with the patient including: Lumbar puncture opening pressure was noted to be 22 with a normal of 20, specimen was sent for cytology which is currently pending. Supervising physician was notified of results via phone. Interval Update 02/02/18: Patient is alert and oriented 3, family and the room, no acute distress. Patient states that the Diamox has not improved his head pain. 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 Discussed matter with supervising physician and he recommends increasing Diamox to 500 mg twice a day for the next 24 hours and reassessing tomorrow. Further recommendations to be provided on rounding on . Interval update 02/03/18: Patient is alert and oriented 3, family and the room, no acute distress. Patient states that the Diamox has significantly decreased his head pain since being increased to 500 mg twice a day. Patient currently rates his head pain at a 1 out of 10. patient has used only 1-2 doses of his narcotic/opioid pain medication and his migraine medication today. Overall the patient is progressing well. Patient is in no acute distress. Patient appears much more relaxed day over day. He states he is able to rest and intermittently take naps and sleep which has significantly improved day over day as well. Objective - Vital Signs Vital signs: Vital Signs Temp 97.9 F 02/03/18 15:00 Pulse 87 02/03/18 15:00 Resp 20 02/03/18 15:00 BP 123/77 02/03/18 15:00 Pulse Ox 97 02/03/18 15:00 Intake & Output 02/03/18 02/03/18 02/04/18 06:59 18:59 06:59 Intake Total 900 460 Balance 900 460 Weight 83.915 kg Intake: Intake, IV Titration 100 Amount Sodium Chloride 0.9% 1, 100 000 ml @ 20 mls/hr IV . Q24H [facility] Rx#:[id number] Oral 900 360 Other: Voiding Method Toilet Toilet Urinal # Voids 2 3 - Exam General appearance: Alert & oriented x3, no apparent distress. Head: Atraumatic, normocephalic, normal inspection Eyes: Well appearance, PERRLA, EOMI. Absent scleral icterus, conjunctival injection, nystagmus, periorbital swelling. Ear, nose and throat: Normal exam, mucous membranes moist Neck: Normal inspection, absent tenderness, lymphadenopathy. Respiratory: No increased work of breathing Cardiovascular: Regular rate, rhythm GI/abdominal: No guarding Extremities: Full range of motion, normal capillary refill, no tenderness, pedal edema joint swelling, calf tenderness. Neurological: cranial nerves II through XII intact no lateralizing weakness no seizure activity noted on physical exam no pronator drift and no nystagmus. Left lower extremity: 5/5 Right lower extremity: 5/5 Left upper extremity: 5/5 Right upper extremity:5 /5 Sensation: Left lower extremity: normal Right lower extremity: normal Left upper extremity: normal Right upper extremity:normal Psychological: Mood and Affect appropriate for setting - Labs CBC & Chem 7: 02/02/18 08:19 02/03/18 07:05 Labs: Abnormal Lab Results - Last 24 Hours (Table) 02/03/18 Range/Units 07:05 Chloride 109 H (98-107) mmol/L Carbon Dioxide 18 L (22-30) mmol/L Assessment and Plan (1) Intractable headache Status: Acute Code(s): R51 - HEADACHE SNOMED Code(s): 88359642 (2) Primary lung cancer Status: Acute Code(s): C34.90 - MALIGNANT NEOPLASM OF UNSP PART OF UNSP BRONCHUS OR LUNG SNOMED Code(s): 58032631 (3) Visual changes Status: Acute Code(s): H53.9 - UNSPECIFIED VISUAL DISTURBANCE SNOMED Code(s) : 065045008 Plan: At this time, neurology notes that the patient is no longer having severe headache since Diamox was increased to 500 mg twice a day. The patients opening lumbar puncture pressure as previously noted to be slightly elevated at 22. Patient's lumbar puncture cytology report notes no malignant cells noted. Patient reports no adverse effects with medication. Discussed with patient the need for sodium level monitoring with use of Diamox. Patient can be cleared from a neurological standpoint for discharge. Patient to continue Diamox as previously prescribed the outpatient setting. Patient to have sodium level drawn in the outpatient setting in 7 days. laboratory blood work order for Diamox sodium level redraw given the patient via nursing staff for discharge. Patient to have follow-up in the office within 10-14 days. NOTE: Patient was originally rounded on an approximately 1515 hrs. today. I have discussed the plan of care with the physician prior to implementation and he agrees with the plan as implemented.
--- NOTE | 2018-02-06 22:18 | P.DS ---
Providers Date of admission: 01/31/18 08:00 Attending physician: Martín Gotti MD Consults: 01/31/18 08:01 Consult Physician Urgent Consulting Provider: Lilliana Shell Consult Reason/Comments: your patient Do you want consulting provider notified?: Yes Consult Physician Urgent Consulting Provider: Patsy Stuart Consult Reason/Comments: intracranial hypertension Do you want consulting provider notified?: Yes 01/31/18 19:24 Consult to Anesthesia Stat Consulting Provider: Anesthesia,Services Consult Reason/Comments: Lumbar Puncture with opening pressure Primary care physician: [facility] Course: This is a pleasant 77 years old male with past medical history of lung cancer status post chemo and radiotherapy few days ago when he got his last chemotherapy on 01/28/2018. Hypertension, COPD, GERD, pneumonia, bronchitis. Previous smoker. Presents with headache. Patient states he has been getting chemo and radiotherapy overall last 5 days and he took the weekend off, however on Wednesday night prior to admission he started to have headache and within half an hour to make some up from sleep. Patient states the pain is all over his head but is more around his eyes and face. Thrombing in character. Was about 9/10 in severity but now subsided with pain medication and after he ate. In the emergency room his CBC , LFT and BMP were unremarkable. CT of the head: No acute hemorrhage: Extended empty sella with a flattening of the posterior globes bilaterally and slightly tortuous optic nerve. Finding may represent intracranial hypertension. Patient has been already evaluated by the hematology team who recommended MRI of the brain which did not show a lesion to explain patient presentation. Neurologist evaluated patient and recommended lumbar puncture. His opening pressure was mildly elevated at 22 cm of water, and sample was sent for cytology and cell count and protein. Patient was diagnosed with increased intracranial pressure and he was started with Diamox at 250 mg twice a day, which later on increased to 500 mg twice a day. On the day of discharge patient felt his headache is significantly improved. He did not any more IV opioids on narcotics. His headache could be controlled with Fioricet. Also patient got 2 treatments with radiation therapy yesterday and today. On the day of discharge patient headache is significantly controlled. No loss of function. No weakness or abnormal sensation when R Malec. No chest pain. No dyspnea. No change in urine or bowel habits. No fever. Since patient is being discharged on Diamox which is diuretic, his blood pressure was low normal and on the day of discharge it was 118/90. Recommended the patient holds low Zartan until he sees his doctor and he agrees. Patient has been cleared by both neurology and oncology team who evaluated him in house, for discharge today in follow-up as an outpatient. As per staff neurologist recommended patient follow-up as outpatient and that they are going to contact him tomorrow for an appointment, if this has not been recommended patient, himself and make an appointment within 2 weeks. His oncologist also recommended that he follow-up with his on oncologist Dr. Shell. Patient doesn' t want to wait and he wanted to leave today. Problems and management plan were discussed with the patient's and he verbalized understanding and acceptance. Patient was found stable and can be discharged home however he needs a follow- up as an outpatient. Patient agrees with the appointments and timing made for him with his PCP. And he said he will call and make an appointment with Dr. Stuart and Dr. Shell as recommended Please refer to my note from today for the physical exam Time spent more than 35 minutes Note: Patient did not want to wait for the physical and outpatient therapy evaluation. Stated that he walking without difficulty and he can function as before. Plan - Discharge Summary Discharge Rx Participant: No New Discharge Prescriptions: No Action RX: Mirtazapine 30 mg PO HS RX: Omeprazole [PriLOSEC] 20 mg PO BID RX: clonazePAM [KlonoPIN] 1 mg PO BID PRN PRN Reason: Anxiety RX: Buprenorphine HCl/Naloxone HCl [Suboxone 2 mg-0.5 mg Sl Film] 1 film SL DAILY RX: Losartan Potassium 100 mg PO BID RX: FLUoxetine HCL [PROzac] 20 mg PO DAILY RX: Albuterol Inhaler [Ventolin Hfa Inhaler] 2 puff INHALATION RT-Q6H #1 inhaler Lisdexamfetamine Dimesylate [Vyvanse] 60 mg PO QAM Discharge Medication List RX: Mirtazapine 30 mg PO HS 07/06/15 [History] RX: Omeprazole [PriLOSEC] 20 mg PO BID 02/03/16 [History] RX: clonazePAM [KlonoPIN] 1 mg PO BID PRN 02/03/16 [History] RX: Buprenorphine HCl/Naloxone HCl [Suboxone 2 mg-0.5 mg Sl Film] 1 film SL DAILY 03/06/16 [History] RX: Losartan Potassium 100 mg PO BID 02/10/17 [History] RX: FLUoxetine HCL [PROzac] 20 mg PO DAILY 12/23/17 [History] RX: Albuterol Inhaler [Ventolin Hfa Inhaler] 2 puff INHALATION RT-Q6H #1 inhaler 12/25/17 [Rx] Lisdexamfetamine Dimesylate [Vyvanse] 60 mg PO QAM 01/31/18 [History] Follow up Appointment(s)/Referral(s): Perfecto Riggins MD [STAFF PHYSICIAN] - 1 Week Damien Irwin DO [Primary Care Provider] - 3 Days Patsy Stuart MD [STAFF PHYSICIAN] - 1 Week Patient Instructions/Handouts: Lung Cancer (DC), Hyponatremia (DC), Acute Headache (DC) Activity/Diet/Wound Care/Special Instructions: Regular diet. Activity as tolerated.
== END 2018-02-03 16:52 | disposition home or self-care (01) | DRG 103 ==
LOC: EC 01:56 → 4MS4W 08:00 → OBSVTOIN 02-03 16:04
PROVIDERS: ADMIT Internal Medicine; ATTEND Internal Medicine
PROC: 009U3ZX Drainage of Spinal Canal, Percutaneous Approach, Diagnostic (ICD-10-PCS; principal; 2018-02-01 11:30)
PROC: DB022ZZ Beam Radiation of Lung using Photons >10 MeV (ICD-10-PCS; 2018-02-02)
DX: G93.2 Benign intracranial hypertension (principal); C34.01 Malignant neoplasm of right main bronchus; E87.1 Hypo-osmolality and hyponatremia; J44.9 Chronic obstructive pulmonary disease, unspecified; I10 Essential (primary) hypertension; F41.9 Anxiety disorder, unspecified; K21.9 Gastro-esophageal reflux disease without esophagitis; F32.9 Major depressive disorder, single episode, unspecified; M54.9 Dorsalgia, unspecified; R59.0 Localized enlarged lymph nodes; Z79.891 Long term (current) use of opiate analgesic; Z79.899 Other long term (current) drug therapy; Z90.49 Acquired absence of other specified parts of digestive tract; Z87.891 Personal history of nicotine dependence; Z87.01 Personal history of pneumonia (recurrent); Z87.19 Personal history of other diseases of the digestive system; Z92.21 Personal history of antineoplastic chemotherapy; Z92.3 Personal history of irradiation; Z88.8 Allergy status to other drugs, medicaments and biological substances; Z91.030 Bee allergy status; Z80.1 Family history of malignant neoplasm of trachea, bronchus and lung; Z80.8 Family history of malignant neoplasm of other organs or systems; Z83.3 Family history of diabetes mellitus
CPT/HCPCS: 36415; 62270; 70450; 70553; 77386; 80048; 80053; 84157; 85025; 88108; 89050; 96361; 96374; 96375; 96376; 99285

== ENCOUNTER → 2018-04-05 | Outpatient (CLI) | payer OTHER ==
--- NOTE | 2018-04-05 12:54 | CT ---
EXAMINATION TYPE: CT ChestAbdPelvis w con DATE OF EXAM: 04/05/2018 COMPARISON: CT chest 12/23/[address] abdomen pelvis 12/24/2017. HISTORY: Follow up lung cancer CT DLP: 1175.4 mGycm CONTRAST: CT scan of the chest, abdomen and pelvis is performed with Oral Contrast and with IV Contrast, patien t injected with 100 mL of Isovue 300. CT Chest: LUNGS: Right hilar mass is significantly smaller in size and currently measures 3.2 x 1.6 cm versus b ilobed mass measuring 5 x 3 cm. There is narrowing and encasement of the right middle lobe bronchus. There is evidence of postobstructive pneumonitis within the right middle lobe. No new masses are appr eciated. No pulmonary nodules seen. Mild emphysematous changes redemonstrated. Parenchymal scarring i n the region of the lingula. MEDIASTINUM: Thoracic aorta is of normal caliber. The heart is not enlarged. Low right paratracheal adenopathy is improved with lymph node measuring 1.2 cm maximal dimension versus 1.9 cm previously. Subcentimeter subcarinal adenopathy has also improved. OTHER: No significant abnormality. CONTRAST CT ABDOMEN AND PELVIS FINDINGS: LIVER/GB: No calcified gallstones. No space occupying hepatic lesion. Biliary tree is of normal ca liber. PANCREAS: No inflammation. No distinct mass. SPLEEN: No splenic enlargement. No lesion seen. ADRENALS: No nodule. No thickening. KIDNEYS/BLADDER: No hydronephrosis. No nephrolithiasis. No disctinct renal mass. BOWEL: Normal appendix. Normal bowel caliber. No inflammation. GENITAL ORGANS: No gross abnormality. LYMPH NODES: No greater than 1cm abdominal or pelvic lymph nodes are appreciated. AORTA: No significant abnormality. OSSEOUS STRUCTURES: No significant abnormality is seen. OTHER: No significant additional abnormality is seen. IMPRESSION: 1. Persistent right hilar soft tissue much improved relative to the prior study. 2. Improving mediastinal adenopathy. 3. No evidence for metastatic disease at this time.
== END | disposition home or self-care (01) ==
LOC: RADCTMAIN 09:51
PROVIDERS: ATTEND Internal Medicine Hematology & Oncology
DX: C34.11 Malignant neoplasm of upper lobe, right bronchus or lung (principal); R59.0 Localized enlarged lymph nodes
CPT/HCPCS: 71260; 74177; Q9967

== ENCOUNTER → 2018-06-21 | Outpatient (CLI) | payer OTHER ==
[2018-06-21 10:52] LABS: Blood Urea Nitrogen 22 mg/dL (9-20)
--- NOTE | 2018-06-21 12:47 | CT ---
EXAMINATION TYPE: CT ChestAbdPelvis w con DATE OF EXAM: 06/21/2018 COMPARISON: CT chest abdomen pelvis April 05, 2018 and older studies. PET/CT January 01, 2018 HISTORY: Follow up lung cancer diagnosed 6 months ago completed chemotherapy and radiation treatment in March 2018. CT DLP: 1239.5 mGycm. Automated Exposure Control for Dose Reduction was Utilized. CONTRAST: CT scan of the thorax, abdomen and pelvis is performed with IV Contrast, patient injected with 100 mL of Isovue 300. FINDINGS: LUNGS: There is background mild to moderate underlying emphysematous change most prominent in the hanna g apices. There is fairly stable right hilar spiculated mass measuring 3.9 x 1.7 cm current study [place] 22 with mediastinal invasion and mass effect on right upper lung bronchus. There is however new fatima rrounding opacity extending anteriorly with more dense consolidation posteriorly centered in the mid central lung. No pleural effusion or pneumothorax is present bilaterally. No suspicious left-sided candice ng nodules are seen. Left lung remains clear. MEDIASTINUM: There are no new greater than 1 cm hilar or mediastinal lymph nodes. Lower right paratr acheal adenopathy measures 1.3 x 1.1 cm current study image 18 not significantly changed from most re cent prior. Stable slightly enlarged subcarinal lymph nodes axial image 24 without hypermetabolic upt fiona on recent PET CT. Subcentimeter lymph node anterior to SVC axial image 20 and 21 are stable or sl ightly smaller in size from most recent CT. Trace pericardial effusion is redemonstrated. No cardiom egaly is present. Moderate peripheral noncalcified plaque left subclavian artery axial image 9 is red emonstrated causing stenosis approaching but under 50%. OTHER: Small degree of bilateral gynecomastia is redemonstrated.. LIVER/GB: Gallbladder is surgically absent. PANCREAS: No significant abnormality is seen. SPLEEN: No significant abnormality is seen. ADRENALS: No significant abnormality is seen. KIDNEYS: No significant abnormality is seen. BOWEL: Oral contrast does not reach colonic level. No suspicious small or large bowel dilatation is s een. GENITAL ORGANS: No gross abnormality seen. LYMPH NODES: No greater than 1cm abdominal or pelvic lymph nodes are appreciated. OSSEOUS STRUCTURES: No significant abnormality is seen. OTHER: Mild to moderate mixed plaque in the aorta extends into branch vessels. Vasectomy clips identi fied in the superior scrotum bilaterally. IMPRESSION: 1. Worsening diffuse right lung infiltrate and/or atelectasis despite suspected stable appearance of neoplasm from most recent CT. Correlate to exclude acute infectious process.
== END ==
LOC: RADCTMAIN 10:10
PROVIDERS: ATTEND Internal Medicine Hematology & Oncology
DX: C34.11 Malignant neoplasm of upper lobe, right bronchus or lung (principal); Z88.6 Allergy status to analgesic agent
CPT/HCPCS: 82565; 84520; 71260; 74177; 36415; Q9967

== ENCOUNTER → 2018-07-20 | Outpatient (CLI) | payer OTHER ==
[2018-07-20 10:07] LABS: Blood Urea Nitrogen 30 mg/dL (9-20)
[2018-07-20 11:20] LABS: Blood Urea Nitrogen 25 mg/dL (9-20)
--- NOTE | 2018-07-20 11:52 | CT ---
EXAMINATION TYPE: CT angio chest DATE OF EXAM: 07/20/2018 COMPARISON: EXAMINATION TYPE: CT angio chest DATE OF EXAM: 07/20/2018 COMPARISON: Prior CT chest June 21, 2018 and older CTs. PET/CT January 01, 2018. HISTORY: Dyspnea, history of lung cancer diagnosed 2018. Rule out pulmonary embolism and or pneumonit is. CT DLP: 497 mGycm. Automated Exposure Control for Dose Reduction was Utilized. CONTRAST: CTA scan of the thorax is performed with IV Contrast, patient injected with 100 mL of Isovue 370, pul monary embolism protocol. MIP Images are created on CT scanner and reviewed. FINDINGS: LUNGS: Background fairly moderate emphysematous change most prominent in the upper lungs remains pres ent. There is persistent right central lung scarring extending superiorly, anteriorly, and laterally. There is more central right hilar mild to moderate bronchiectasis and mild peribronchial wall thicke yolis with persistent masslike thickening hilar level for reference axial image 58. No significant anthony nges seen from most recent CT in these findings. There is interval improvement in right midlung groun dglass opacity from prior study. There is some new left hilar reticulation and opacity with bronchiec tasis suggesting treatment change or scarring. Stable slight left hilar nodularity axial image 71 ant eriorly remains present. No new suspicious focal infiltrates. No pleural effusion or pneumothorax is evident. No new suspicious masses. MEDIASTINUM: There is markedly suboptimal bolus with more dense contrast noted in aorta versus pulmon pacheco arteries, there is no large central saddle pulmonary embolism, smaller lobar as well as segmental and subsegmental PE cannot be entirely excluded on this study. There are no new greater than 1 cm m ediastinal lymph nodes. No cardiomegaly or pericardial effusion is seen. Some new right-sided volum e loss with mediastinal shift is seen from older CTs. OTHER: Liver is hypodense consistent with diffuse fatty infiltration. Cholecystectomy clips are redem onstrated.. IMPRESSION: 1. Essentially nondiagnostic for evaluation of acute pulmonary embolism. No large saddle central pulm onary embolism is seen. 2. Background moderate emphysematous change with persistent treated neoplasm centered right hilar reg ion. Interval improvement in right midlung infiltrate noted. No new suspicious acute pulmonary proces s. There is increasing parenchymal scarring presumed posttreatment change left hilar level noted from most recent CT is the only significant interval change.
[2018-07-20 12:55] LABS: T4, Free (Free Thyroxine) 1.21 ng/dL (0.78-2.19)
== END | disposition home or self-care (01) ==
LOC: RADCTMAIN 09:28
PROVIDERS: ATTEND Internal Medicine Hematology & Oncology
DX: J43.9 Emphysema, unspecified (principal); R91.8 Other nonspecific abnormal finding of lung field; J98.4 Other disorders of lung; Z88.6 Allergy status to analgesic agent; Z85.118 Personal history of other malignant neoplasm of bronchus and lung
CPT/HCPCS: 84439; 84481; 82565; 84443; 84520; 71275; 36415; Q9967

== ENCOUNTER → 2018-07-21 | Outpatient (CLI) | payer OTHER ==
[2018-07-21 11:13] LABS: HCT 47.3 % (39.0-53.0); MCH 27.3 pg (25.0-35.0); MCHC 31.7 g/dL (31.0-37.0); Platelet Count 251 k/uL (150-450); RDW 15.2 % (11.5-15.5); WBC 8.2 k/uL (3.8-10.6)
[2018-07-21 17:19] LABS: Anion Gap 10.8 mmol/L (4.00-12.00); Calcium 9.2 mg/dL (8.7-10.3); Carbon Dioxide 25.2 mmol/L (21.6-31.8); Potassium 4.6 mmol/L (3.5-5.5)
[2018-07-21 17:26] LABS: T4, Free (Free Thyroxine) 1.3 ng/dL (0.80-1.80)
== END | disposition home or self-care (01) ==
LOC: LABWHC1 10:26
PROVIDERS: ATTEND Internal Medicine Cardiovascular Disease
DX: R06.02 Shortness of breath (principal)
CPT/HCPCS: 36415; 80048; 83880; 84439; 84443; 85027

== ENCOUNTER 2018-09-15 09:56 | Day surgery (SDC) | payer OTHER ==
[2018-09-13 14:22] VITALS: BMI 32.1
[~2018-09-15 09:56] MED LIST: ALBUTEROL NEB (CONC) 2.5 MG/0.5 ML INHALATION ONE; DEXAMETHASONE SOD PHOSPHATE 10 MG/ML 1 ML VIAL IV ONE; HYDROmorphone 0.5 MG/0.5 ML SYRINGE IVP PRN; LACTATED RINGERS 1,000 ML IV SCH; LIDOCAINE 1% 20 ML VIAL (10MG/ML) FOR IV START INTRADERMA PRN; LIDOCAINE 2% (PF) 20 MG/ML 5 ML VIAL INHALATION ONE; LIDOCAINE VISCOUS 300 MG/15 ML CUP MUCOUS MEM ONE; MIDAZOLAM (PF) 2 MG/2 ML VIAL IV PRN; SCOPOLAMINE 1.5MG/72HR PATCH TRANSDERM ONE; SODIUM CHLORIDE 0.9% 1,000 ML IV SCH
[2018-09-15] MEDS ORDERED: IPRATROPIUM-ALBUTEROL 3 ML NEB INHALATION STA (10:22)
[2018-09-15] MEDS: ONDANSETRON 4 MG/2 ML VIAL IVP ONE ×2 (11:00→14:04)
--- NOTE | 2018-09-15 12:11 | CT ---
EXAMINATION TYPE: CT Chest javi Maxwell Protocol DATE OF EXAM: 09/15/2018 COMPARISON: PET CT 07/20/2018 HISTORY: 58-year-old male imaging for Bronchial navigation. TECHNIQUE: Contiguous axial scanning of the chest without IV contrast. Imaging performed for endobron chial navigation purposes. Coronal and sagittal reconstructions performed. CT DLP: 567.2 mGycm Automated exposure control for dose reduction was used. FINDINGS: Heart normal size without pericardial effusion. Aorta normal caliber with conventional arch vessel branching anatomy. Borderline enlarged 1 cm right paratracheal lymph node. Redemonstrated bilaterally. Hilar consolidation, increasing on the left along the central interstitiu m Pulmonary nodules are now demonstrated posterior mid lungs measuring up to 7 mm on the right and 1.2 cm on the left, refer to axial image 39. Background of moderately advanced emphysema. Persistent consolidation superior segment right lower lobe, perihilar right lung, and extending throu ghout the anterior right upper midlung. On the right, findings are relatively similar to 07/20/2018. Moderate gynecomastia on the right. Visualized upper abdomen shows cholecystectomy clips. Bones: Cervical spondylosis. No osseous destructive process. IMPRESSION: 1. IMAGING FOR ENDOBRONCHIAL NAVIGATION PURPOSES. 2. COPD WITH MODERATE TO ADVANCED EMPHYSEMA. 3. OVERALL STABLE RIGHT PERIHILAR CONSOLIDATION EXTENDING INTO THE INFRAHILAR REGION AND ANTERIOR MID -UPPER RIGHT UPPER LOBE. 4. HOWEVER, LEFT PERIHILAR CONSOLIDATION IS INCREASING AND UNDERLYING NEOPLASM IS NOT EXCLUDED. 5. NEW/LARGER POSTERIOR MID LUNG PULMONARY NODULES MEASURING 1.2 CM ON THE LEFT AND 7 MM ON THE RIGHT .
[2018-09-15] MEDS ORDERED: fentaNYL (PF) 50 MCG/ML 2 ML AMP ONE (12:32)
[2018-09-15] MEDS ORDERED: KETAMINE 10 MG/ML 20 ML VIAL ONE (12:32)
[2018-09-15] MEDS ORDERED: PROPOFOL 10 MG/ML 20 ML VIAL IV ONE (12:32)
[2018-09-15] MEDS ORDERED: SUCCINYLCHOLINE CHLORIDE 100 MG/5 ML SYR IV ONE (12:32)
[2018-09-15] MEDS ORDERED: LIDOCAINE 1% INJ 10MG/ML (20 ML MDV) ONE (12:32)
[2018-09-15] MEDS ORDERED: GLYCOPYRROLATE 0.2 MG/ML 2 ML VIAL ONE (12:32)
[2018-09-15] MEDS ORDERED: MIDAZOLAM 2 MG/2 ML VIAL ONE (12:32)
[2018-09-15] MEDS ORDERED: ROCURONIUM BROMIDE 10 MG/ML 10 ML VIAL IV ONE (12:32)
[2018-09-15] MEDS ORDERED: NEOSTIGMINE 1 MG/ML 10 ML VIAL ONE (12:32)
[2018-09-15] MEDS ORDERED: LACTATED RINGERS 1,000 ML IV ONE (13:26)
[2018-09-15 13:33] VITALS: TEMP 97.6
--- NOTE | 2018-09-15 14:08 | XR ---
EXAMINATION TYPE: XR chest 1V DATE OF EXAM: 09/15/2018 COMPARISON: 12/23/2017 HISTORY: 58 year-old male post bronchial navigation TECHNIQUE: Single frontal view of the chest is obtained. FINDINGS: Heart normal size. Bilateral, right greater than left perihilar densities. The densities on both side s shows increased from 12/23/2017. Old healed left-sided rib fracture deformities. No appreciable pneu mothorax. Bronchial navigation leads are present over the chest. IMPRESSION: Right greater than left bilateral perihilar densities. Please refer to CT chest report of the same da y for further details. The bilateral densities show increase from 12/23/2017. No appreciable pneumotho rax.
[2018-09-15 14:28] VITALS: RESP 16
[2018-09-15 14:44] VITALS: BP 104/71; PULSE 93
--- NOTE | 2018-09-16 07:54 | P.PCN ---
Date of Procedure: 09/15/18 Preoperative Diagnosis: Non-small cell lung cancer post-chemoradiation therapy, right paratracheal lymph node, consolidation involving the severe segment of the right lower lobe, right perihilar and anterior segment of the right upper lobe, rule out radiation pneumonitis, rule out malignancy. Postoperative Diagnosis: 1 Radiation induced narrowing of the anterior and the posterior segment of the right upper lobe superior and posterior segment of the right lower lobe. 2 Endobronchial growth/lesions (multiple) at the level of the right upper lobe bronchus Anesthesia: GETA Surgeon: Kathy Montano Service Learning Coordinator #1: Nafisa Fontenot Estimated Blood Loss (ml): 0 Pathology: other Condition: stable Disposition: same day Indications for Procedure: Dyspnea, rule out recurrent NSCLC Operative Findings: This procedure was done in the operating room. Medications guidance was used to biopsy right paratracheal lymph nodes on the right perihilar consolidation. The patient underwent a CAT scan of the chest for mapping purposes. The [employer] protocol was used for the CAT scan and following that the CAT scan images uploaded into our system where the appropriate mapping of the right paratracheal lymph node in the right perihilar consolidation was done. All of this information was uploaded into USB and then into the [employer] tower. The patient was brought into the operating room. The patient was intubated in the usual fashion by anesthesia. After being intubated, the bronchoscope was introduced into the orotracheal tube and the procedure was completed as the patient being appropriately oxygenated and ventilated. The appropriate calibration was done using the main kasandra and the secondary kasandra on the right as a reference points. Following that, an airway inspection was done. The distal trachea was within normal limits. The right mainstem bronchus was patent. The right upper lobe bronchus was slightly narrowed and airway looked scarred probably due to radiation. The posterior segment of the right upper lobe and anterior are quite distorted secondary to radiation-induced fibrosis. There was some endobronchial growths and these were 5 mm lesions scattered on the posterior wall of the right upper lobe. There were several of them in the right upper lobe and another similar endobronchial growth was seen in the bronchus intermedius. Airway inspection was completed. The bronchus intermedius was noted. The right middle lobe bronchus and the 2 segments were patent within normal limits. Then the bronchoscope was moved to the right lower lobe where the posterior segment was again fibrotic and somewhat distorted probably related to radiation changes. The anterior and lateral segments were patent. The superior segment was also patent. Examination of the left side including the left mainstem bronchus left upper lobe and left lower lobe bronchi all of them being within normal limits. At this point, the bronchoscope was moved to the main trachea and on the navigation guided stress bronchial needle aspirate of the right paratracheal lymph node was done using a 19-gauge histology needle. A total of 3 passes was taken. Following that, the endobronchial lesions that were noted in the right upper lobe bronchus and the b ronchus intermedius were biopsied and in the bronchial biopsies was done. At the completion of of the procedure. Biopsies of the posterior segment of the right upper lobe was done transbronchially. I also performed a bronchioloalveolar lavage of the right upper lobe with a total of 8 mL of fluid infused and 25 mL was aspirated. The bronchoscope was removed and the patient was extubated and transferred recovery in stable condition. No bedside complications. No bleeding. Total amount of bleeding is less than 1cc
== END 2018-09-15 14:58 | disposition home or self-care (01) ==
LOC: ORWHC2ENDO 09:56
PROVIDERS: ATTEND Internal Medicine Critical Care Medicine
DX: R91.8 Other nonspecific abnormal finding of lung field (principal); J70.1 Chronic and other pulmonary manifestations due to radiation; J98.09 Other diseases of bronchus, not elsewhere classified; J43.9 Emphysema, unspecified; Z85.118 Personal history of other malignant neoplasm of bronchus and lung; Z92.21 Personal history of antineoplastic chemotherapy; Z92.3 Personal history of irradiation; I10 Essential (primary) hypertension; F41.9 Anxiety disorder, unspecified; F32.9 Major depressive disorder, single episode, unspecified; R00.0 Tachycardia, unspecified; Z79.891 Long term (current) use of opiate analgesic; Z79.899 Other long term (current) drug therapy; Z79.1 Long term (current) use of non-steroidal anti-inflammatories (NSAID); Z88.6 Allergy status to analgesic agent; Z87.891 Personal history of nicotine dependence
CPT/HCPCS: 94640; 88108; 88305; 87070; 87205; 71045; 71250; 31628; 31629; 31624; 31627; J2250; J2710; J2405; J2001; J3010; J0330; J2704; 31625

== ENCOUNTER → 2018-11-21 | Outpatient (CLI) | payer OTHER ==
--- NOTE | 2018-11-21 14:58 | CT ---
EXAMINATION TYPE: CT chest w con DATE OF EXAM: 11/21/2018 COMPARISON: 07/20/2018 HISTORY: Lung cancer CT DLP: 593 mGycm, Automated exposure control for dose reduction was used. CONTRAST: Performed injected with 100 mL of Isovue 300. TECHNIQUE: Axial images were obtained at 5 mm thick sections. Reconstructed images are reviewed on [employer] computer in the coronal plane. FINDINGS: Portion of the thyroid visualized is normal. There is a 0.7 cm nodule within the left apex which is enlarged from comparison. Series 4 image 7. There is a 0.2 cm nodule within the left mid to lower posterior lung field this is new. Series 4 imag e 35. There is a cavitary lesion within the posterior left lung measuring 1.7 cm. Series 4 image 37. This i s increased in size. There is a 0.8 cm nodule adjacent to the mediastinal border below the level of the heart, series 4 im age 42. This has increased in size over the interval. There is a 1.1 cm subcarinal lymph node. There is a 1.1 cm pretracheal lymph node there is bilateral perihilar thickening. The ascending aorta diameter at the level of the main pulmonary artery is 2.9 cm. The main pulmonary artery diameter at the bifurcation is 2.[address] sections are obtained through the upper abdomen. Mild to moderate fatty infiltration is th e liver. Upper abdomen is otherwise unremarkable. IMPRESSIONS: 1. New and enlarging lung nodules discussed above. 2. Consolidation through the infrahilar regions bilaterally greater on the right
== END | disposition home or self-care (01) ==
LOC: RADCTMAIN 08:58
PROVIDERS: ATTEND Internal Medicine Hematology & Oncology
DX: R91.1 Solitary pulmonary nodule (principal); C34.11 Malignant neoplasm of upper lobe, right bronchus or lung; Z88.6 Allergy status to analgesic agent
CPT/HCPCS: 71260; Q9967

== ENCOUNTER → 2018-12-17 | Outpatient (CLI) | payer OTHER ==
--- NOTE | 2018-12-18 14:42 | PE ---
EXAMINATION TYPE: PET CT fusion skull to thigh DATE OF EXAM: 12/17/2018 COMPARISON: 06/21/2018 CT chest Prior PET/CT: 01/01/2018 HISTORY: Lung cancer TECHNIQUE: Following the intravenous administration of 11.80 mCi of F-18 FDG, whole body images are performed from the skull base to the midthigh. Images are reviewed on the computer in the coronal, a xial, and sagittal planes. Reconstructed rotating images are created on independent workstation and reviewed on the computer. A localization and attenuation correction CT is performed in conjunction with the PET scan. DLP: 458.02 mGycm SCAN: Subsequent Blood glucose: 173 mg/dL Average Mediastinum SUV: 1.71 Average Liver SUV: 1.94 FINDINGS: NECK: There is a focal area of radiotracer accumulation within the right lateral car pre cooler space. T his has an SUV value of 2.5. PET image 26 This is of uncertain significance. THORAX: There is a slightly prominent pretracheal lymph node not enlarged by CT criteria. This has in termediate signal within SUV value 1.95. 2 foci of posterior lung uptake is evident on the PET images . Image 101, left 3.59 SUV value, right 2.74 SUV value. These areas are suspicious for metastatic dis ease. Right lung nodules slightly more inferior has a more intermediate signal measuring 1.05. This m ay be misregistration. ABDOMEN: No abnormal uptake PELVIS: Within the cecum there is a focus of radiotracer accumulation measuring 3.76. Underlying neop lastic process could be considered. Consider colonoscopy. Uptake within bowel is more typically diffu se. OSSEOUS STRUCTURES: No abnormal uptake LOCALIZATION CT: Ascending thoracic aorta at the level of main pulmonary artery is 3.4 cm. The main p ulmonary bifurcation is 2.5 cm. There is increased density in the perihilar region which may be relat ed to patient's radiation ports. The lung nodule within the posterior right peripheral lung, series 3 image 108 appears to be new. The cavitary lesion within the posterior left lung, series 3 image 105 likewise appears to be new COMPARISON: Uptake within the right hilar region, the right paratracheal lymph node has significantly diminished over the interval. The uptake within the posterior lungs bilaterally are new. Uptake with in the cecum is new. IMPRESSION: 1. Significant improvement of the radiotracer accumulation within the right perihilar and right perit roberta regions. 2. New foci of radiotracer within the posterior lungs bilaterally suspicious for new metastatic lesio ns. 3. There is foci radiotracer within the cecum. Cecal neoplasm is not excluded.
== END | disposition home or self-care (01) ==
LOC: RADPETMAIN 08:21
PROVIDERS: ATTEND Internal Medicine Hematology & Oncology
DX: C34.11 Malignant neoplasm of upper lobe, right bronchus or lung (principal); R93.3 Abnormal findings on diagnostic imaging of other parts of digestive tract; Z92.3 Personal history of irradiation; Z92.21 Personal history of antineoplastic chemotherapy
CPT/HCPCS: 78815; A9552

== ENCOUNTER 2019-03-03 14:01 | Inpatient (IN) | payer OTHER ==
[2019-03-03] MEDS ORDERED: IPRATROPIUM-ALBUTEROL 3 ML NEB INHALATION STA (15:00)
[2019-03-03] MEDS ORDERED: SODIUM CHLORIDE 0.9% 500 ML 500 ML IV SCH (15:00)
--- NOTE | 2019-03-03 15:03 | ED ---
General Adult HPI - General Chief complaint: Fever Stated complaint: Fever-Cancer pt Time Seen by Provider: 03/03/19 14:31 Source: patient, family, RN notes reviewed Mode of arrival: ambulatory Limitations: no limitations - History of Present Illness Initial comments: Patient is a pleasant 58-year-old male presenting to the emergency Department with complaints of fevers. Onset of symptoms was around 4 days ago. Symptoms have been intermittent and controlled with Tylenol. Fever was 101.9 earlier. Patient does have cough with thick dark yellow sputum. Patient had some nausea 5 or 6 days ago however that has been resolved since that time. No abdominal pain. Patient has known stage IV lung cancer and is on immunotherapy for this. - Related Data Home Medications Medication Instructions Recorded Confirmed Mirtazapine 30 mg PO HS 07/06/15 03/03/19 Omeprazole [PriLOSEC] 20 mg PO DAILY 02/03/16 03/03/19 clonazePAM [KlonoPIN] 1 mg PO HS 02/03/16 03/03/19 FLUoxetine HCL [PROzac] 20 mg PO DAILY 12/23/17 03/03/19 Furosemide [Lasix] 20 mg PO DAILY 09/13/18 03/03/19 Ibuprofen [Motrin] 800 mg PO DAILY PRN 09/13/18 03/03/19 Acetaminophen [Tylenol Extra 1,000 mg PO Q6H PRN 03/03/19 03/03/19 Strength] Buprenorphine HCl/Naloxone HCl 1 film SL DAILY 03/03/19 03/03/19 [Suboxone 2 mg-0.5 mg Sl Film] Lisdexamfetamine Dimesylate 40 mg PO DAILY 03/03/19 03/03/19 [Vyvanse] Previous Rx's Medication Instructions Recorded Albuterol Inhaler [Ventolin Hfa 2 puff INHALATION RT-Q6H #1 inhaler 12/25/17 Inhaler] Allergies Allergy/AdvReac Type Severity Reaction Status Date / Time naproxen sodium [From Aleve] Allergy Anaphylaxis Verified 03/03/19 15:30 venom-honey bee Allergy Anaphylaxis Verified 03/03/19 15:30 [bee venom (honey bee)] Review of Systems ROS Statement: Those systems with pertinent positive or pertinent negative responses have been documented in the HPI. ROS Other: All systems not noted in ROS Statement are negative. Constitutional: Reports: fever Eyes: Denies: eye pain ENT: Denies: ear pain Respiratory: Reports: cough, dyspnea Cardiovascular: Denies: chest pain Endocrine: Reports: fatigue Gastrointestinal: Denies: abdominal pain Genitourinary: Denies: dysuria Musculoskeletal: Denies: back pain Skin: Denies: rash Neurological: Denies: weakness Past Medical History Past Medical History: Cancer, COPD, Hypertension Additional Past Medical History / Comment(s): back pain, lung cancer, "high rate has been high" History of Any Multi-Drug Resistant Organisms: None Reported Past Surgical History: Cholecystectomy, Orthopedic Surgery Additional Past Surgical History / Comment(s): left big toe surgery-has plate, egd Past Anesthesia/Blood Transfusion Reactions: No Reported Reaction Past Psychological History: Anxiety, Depression Smoking Status: Former smoker - Past Family History Mother Family Medical History: Cancer Additional Family Medical History / Comment(s): THROAT Sister(s) Family Medical History: Cancer Additional Family Medical History / Comment(s): LUNG Father Family Medical History: Diabetes Mellitus General Exam Limitations: no limitations General appearance: alert, in no apparent distress Head exam: Present: normocephalic Eye exam: Present: normal appearance, PERRL ENT exam: Present: normal oropharynx Neck exam: Present: normal inspection Respiratory exam: Present: wheezes Cardiovascular Exam: Present: regular rate, normal rhythm GI/Abdominal exam: Present: soft. Absent: tenderness Extremities exam: Present: normal inspection. Absent: pedal edema, calf tenderness Neurological exam: Present: alert Psychiatric exam: Present: normal affect, normal mood Skin exam: Present: normal color Course Vital Signs 03/03/19 03/03/19 03/03/19 14:13 15:01 15:09 Temperature 98.6 F Pulse Rate 97 100 100 Respiratory 18 Rate Blood Pressure 127/57 O2 Sat by Pulse 98 Oximetry 03/03/19 03/03/19 16:00 16:30 Temperature Pulse Rate 88 84 Respiratory 25 H 24 Rate Blood Pressure 111/72 114/77 O2 Sat by Pulse 97 96 Oximetry EKG Findings - EKG Comments: EKG Findings:: Normal sinus rhythm 79. IL 140. QRS 88. To T3 76. QTc 431. Renal axis. Normal QRS. No acute ST change. Medical Decision Making - Medical Decision Making Patient reevaluated. Patient and family updated. Dr. ny has been paged for admission, covering for hospital call. Patient does not meet sepsis criteria. - Lab Data Result diagrams: 03/03/19 15:30 03/03/19 15:30 Lab Results 03/03/19 03/03/19 03/03/19 Range/Units 15:30 15:30 15:30 WBC 6.8 (3.8-10.6) k/uL RBC 4.33 (4.30-5.90) m/uL Hgb 12.5 L (13.0-17.5) gm/dL Hct 37.8 L (39.0-53.0) % MCV 87.1 (80.0-100.0) fL MCH 28.9 (25.0-35.0) pg MCHC 33.1 (31.0-37.0) g/dL RDW 13.7 (11.5-15.5) % Plt Count 313 (150-450) k/uL Neutrophils % 77 % Lymphocytes % 10 % Monocytes % 6 % Eosinophils % 4 % Basophils % 1 % Neutrophils # 5.2 (1.3-7.7) k/uL Lymphocytes # 0.7 L (1.0-4.8) k/uL Monocytes # 0.4 (0-1.0) k/uL Eosinophils # 0.3 (0-0.7) k/uL Basophils # 0.0 (0-0.2) k/uL PT (9.0-12.0) sec INR (<1.2) APTT (22.0-30.0) sec Sodium 141 (137-145) mmol/L Potassium 3.8 (3.5-5.1) mmol/L Chloride 103 (98-107) mmol/L Carbon Dioxide 28 (22-30) mmol/L Anion Gap 10 mmol/L BUN 17 (9-20) mg/dL Creatinine 0.94 (0.66-1.25) mg/dL Est GFR (CKD-EPI)AfAm >90 (>60 ml/min/1.73 sqM) Est GFR (CKD-EPI)NonAf 89 (>60 ml/min/1.73 sqM) Glucose 100 H (74-99) mg/dL Plasma Lactic Acid Miko 2.3 H* (0.7-2.0) mmol/L Calcium 8.8 (8.4-10.2) mg/dL Total Bilirubin 0.4 (0.2-1.3) mg/dL AST 31 (17-59) U/L ALT 22 (21-72) U/L Alkaline Phosphatase 97 (38-126) U/L Total Protein 7.0 (6.3-8.2) g/dL Albumin 3.7 (3.5-5.0) g/dL 03/03/19 Range/Units 15:30 WBC (3.8-10.6) k/uL RBC (4.30-5.90) m/uL Hgb (13.0-17.5) gm/dL Hct (39.0-53.0) % MCV (80.0-100.0) fL MCH (25.0-35.0) pg MCHC (31.0-37.0) g/dL RDW (11.5-15.5) % Plt Count (150-450) k/uL Neutrophils % % Lymphocytes % % Monocytes % % Eosinophils % % Basophils % % Neutrophils # (1.3-7.7) k/uL Lymphocytes # (1.0-4.8) k/uL Monocytes # (0-1.0) k/uL Eosinophils # (0-0.7) k/uL Basophils # (0-0.2) k/uL PT 10.2 (9.0-12.0) sec INR 0.9 (<1.2) APTT 29.5 (22.0-30.0) sec Sodium (137-145) mmol/L Potassium (3.5-5.1) mmol/L Chloride (98-107) mmol/L Carbon Dioxide (22-30) mmol/L Anion Gap mmol/L BUN (9-20) mg/dL Creatinine (0.66-1.25) mg/dL Est GFR (CKD-EPI)AfAm (>60 ml/min/1.73 sqM) Est GFR (CKD-EPI)NonAf (>60 ml/min/1.73 sqM) Glucose (74-99) mg/dL Plasma Lactic Acid Miko (0.7-2.0) mmol/L Calcium (8.4-10.2) mg/dL Total Bilirubin (0.2-1.3) mg/dL AST (17-59) U/L ALT (21-72) U/L Alkaline Phosphatase (38-126) U/L Total Protein (6.3-8.2) g/dL Albumin (3.5-5.0) g/dL - Radiology Data Radiology results: image reviewed (Chest x-ray shows new left perihilar i nfiltrate. Chronic bilateral hilar normal fibrotic changes.) Disposition Clinical Impression: Primary lung cancer, Pneumonia Disposition: ADMITTED IP TO THIS HOSP Is patient prescribed a controlled substance at d/c from ED?: No Referrals: Damien Irwin DO [Primary Care Provider] - 1-2 days Decision Time: 16:59
[2019-03-03] MEDS: SODIUM CHLORIDE 0.9% 1,000 ML IV SCH (15:35)
[2019-03-03 15:48] LABS: Basophils % (A) 1 %; Eosinophils # (A) 0.3 k/uL (0-0.7); Eosinophils % (A) 4 %; HCT 37.8 % (39.0-53.0); HGB 12.5 gm/dL (13.0-17.5); Lymphocytes # (A) 0.7 k/uL (1.0-4.8); Lymphocytes % (A) 10 %; MCH 28.9 pg (25.0-35.0); MCHC 33.1 g/dL (31.0-37.0); MCV 87.1 fL (80.0-100.0); Monocytes # (A) 0.4 k/uL (0-1.0); Monocytes % (A) 6 %; Neutrophils # (A) 5.2 k/uL (1.3-7.7); Neutrophils % (A) 77 %; Platelet Count 313 k/uL (150-450); RBC 4.33 m/uL (4.30-5.90); RDW 13.7 % (11.5-15.5); WBC 6.8 k/uL (3.8-10.6)
--- NOTE | 2019-03-03 15:51 | XR ---
EXAMINATION TYPE: XR chest 2V DATE OF EXAM: 03/03/2019 COMPARISON: Chest x-ray September 15, 2018. Chest CT November 21, 2018. PET/CT December 17, 2018. HISTORY: Fever. Undergoing treatment for lung cancer. TECHNIQUE: Frontal and lateral views of the chest are obtained. FINDINGS: There is background chronic emphysematous change with bilateral hilar scarring. New left perihilar opacity. No pleural effusion or pneumothorax. The cardiac silhouette size remains within no rmal limits. Old left posterior lateral mid rib fractures redemonstrated.. IMPRESSION: Chronic emphysematous and bilateral hilar parenchymal fibrotic changes with new left per ihilar acute infiltrate thought present.
[2019-03-03 15:56] LABS: INR 0.9 (<1.2); Partial Thromboplastin Time 29.5 sec (22.0-30.0); Prothrombin Time 10.2 sec (9.0-12.0)
[2019-03-03 16:00] LABS: ALT 22 U/L (21-72); AST 31 U/L (17-59); African American GFR (CKD) >90 (>60 ml/min/1.73 sqM); Albumin 3.7 g/dL (3.5-5.0); Alkaline Phosphatase 97 U/L (38-126); Anion Gap 10 mmol/L; Blood Urea Nitrogen 17 mg/dL (9-20); Calcium 8.8 mg/dL (8.4-10.2); Carbon Dioxide 28 mmol/L (22-30); Chloride 103 mmol/L (98-107); Glucose 100 mg/dL (74-99); Potassium 3.8 mmol/L (3.5-5.1); Sodium 141 mmol/L (137-145); Total Bilirubin 0.4 mg/dL (0.2-1.3)
[2019-03-03] MEDS ORDERED: SODIUM CHLORIDE 0.9% 500 ML 500 ML IV STA (16:58)
[2019-03-03] MEDS ORDERED: PNEUMONIA PROTOCOL UTILIZED 1 EACH MISC PO PRN (16:59)
[2019-03-03] MEDS ORDERED: PIPERACILLIN-TAZOBACTAM 3.375 GM in SODIUM CHLORIDE 0.9% 100 ML IVPB STA (16:59)
[2019-03-03] MEDS ORDERED: LEVOFLOXACIN 750MG-D5W PMX 750 MG in DEXTROSE/WATER 1 150ML.BAG IVPB STA (16:59)
[2019-03-03] MEDS ORDERED: ACETAMINOPHEN TAB 325 MG TAB PO PRN (17:35)
[2019-03-03 18:24] VITALS: BMI 32.1
[2019-03-03] MEDS ORDERED: RX INFO: IV CONTRAST WAS GIVEN 1 EACH MISC MISCELLANE PRN (18:49)
[2019-03-03] MEDS ORDERED: ACETAMINOPHEN TAB 500 MG TAB PO PRN (20:06)
[2019-03-03] MEDS: IPRATROPIUM-ALBUTEROL 3 ML NEB INHALATION SCH ×2 (20:17→23:07)
[2019-03-03] MEDS: MIRTAZAPINE 15 MG TAB PO SCH (21:52)
[2019-03-03] MEDS: clonazePAM 1 MG TAB PO SCH (21:52)
[2019-03-04] MEDS: PIPERACILLIN-TAZOBACTAM 3.375 GM in SODIUM CHLORIDE 0.9% 100 ML IVPB SCH ×3 (01:23→18:48)
[2019-03-04] MEDS: SODIUM CHLORIDE 0.9% 1,000 ML IV SCH ×4 (02:00→23:24)
[2019-03-04] MEDS: IPRATROPIUM-ALBUTEROL 3 ML NEB INHALATION SCH ×4 (04:12→16:13)
--- NOTE | 2019-03-04 07:55 | XR ---
EXAMINATION TYPE: XR chest 2V DATE OF EXAM: 03/04/2019 HISTORY: pneumonia. REFERENCE: Previous study dated 03/03/2019. FINDINGS: Lung volumes are mildly prominent. There are bilateral perihilar infiltrates, worse on the left than the right. Heart size upper limits of normal. Pleural spaces are clear. IMPRESSION: CONTINUING BILATERAL PNEUMONIAS WHICH MAY HAVE WORSENED SLIGHTLY ON THE LEFT.
--- NOTE | 2019-03-04 08:03 | CT ---
EXAMINATION TYPE: CT chest w con DATE OF EXAM: 03/04/2019 COMPARISON: Previous PET/CT dated 12/17/2018 HISTORY: Trouble breathing, fever, COPD, History of CA CT DLP: 506.50 mGycm Automated exposure control for dose reduction was used. CONTRAST: CT scan of the chest is performed with IV Contrast, patient injected with 100 mL of Isovue 300. FINDINGS: There are emphysematous changes throughout the lungs. There is worsening groundglass opacit y in the left lower lobe as well as the right middle and lower lobes. Nodular density in the posterio r basal segment of the right lower lobe has increased in size from 1.6 cm to 2.3 cm. A cavitating les ion in the posterior basal segment of the left lower lobe has increased in size from 1.8 cm to 2.2 cm . There are small, bilateral pleural effusions. No definite pericardial fluid is seen. The heart is not enlarged. There is no significant axillary adenopathy. There is some shotty mediastinal and hilar adenopathy. Visualized portions of the upper abdomen are unremarkable. There is a partially healed fracture of the left seventh rib posteriorly. This was present previously . IMPRESSION: 1. WORSENING GROUNDGLASS OPACITY AT BOTH LUNG BASES. 2. ENLARGING METASTATIC DISEASE IN THE LOWER LOBES BILATERALLY. 3. COPD. 4. SMALL, BILATERAL EFFUSIONS. 5. PARTIALLY HEALED, STABLE LEFT SEVENTH RIB FRACTURE.
[2019-03-04] MEDS: PANTOPRAZOLE 40 MG TABLET PO SCH (09:29)
[2019-03-04] MEDS: FLUoxetine HCL 20 MG CAP PO SCH (09:29)
[2019-03-04] MEDS: LISDEXAMFETAMINE DIMESYLATE 40 MG PO SCH (09:29)
--- NOTE | 2019-03-04 12:56 | P.CNPUL ---
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 Subsequent CAT scan showed development of a pulmonary infiltration centrally in the right midlung and in the posterior segment of the right lower lobe and he was initiated on immunotherapy. He had a PET scan in December 2018 that showed significant improvement in the radiotracer accumulation within the right perihi lar and right paratracheal regions. There was new foci of radiotracer within the posterior lungs bilaterally suspicious for new metastatic lesions. There is also foci radiotracer within the cecum. Cecal neoplasm was not excluded. The patient is currently on Vyvanse and follows with Dr. Shell. He presented here to the emergency room yesterday with complaints of increasing shortness of breath, cough and congestion. A CAT scan of the chest with contrast reveals worsening groundglass opacity at both lung bases. There is enlarging metastatic disease in the lower lobes bilaterally. Evidence of COPD and small bilateral effusions. He is seen today in consultation on the regular medical floor. He is currently awake and alert. Mild respiratory distress. Continues with cough and congestion. He is maintaining good O2 saturations in the mid 90s on 3 L/m per nasal cannula. T-max 99.7. Sputum culture pending. White count 6.8. Hemoglobin 12.5. Creatinine 0.94. Initial lactic acid 2.3, currently 1.3. Influenza screen negative. He has been initiated on Zosyn and Levaquin along wi bronchodilators. Review of Systems REVIEW OF SYSTEMS: CONSTITUTIONAL: Denies any recent significant weight loss or weight gain. EYES: Denies change in vision. EARS, NOSE, MOUTH, THROAT: Denies headaches, denies sore throat. CARDIOVASCULAR: Denies chest pain, palpitations or syncopal episodes. RESPIRATORY: Positive for shortness of breath, cough, congestion no hemoptysis. GASTROINTESTINAL: Denies change in appetite, denies abdominal pain GENITOURINARY: Denies hematuria, denies infections. MUSKULOSKELETAL: Denies pain, denies swelling. INTEGUMENTARY: Denies rash, denies eczema. NEUROLOGICAL: Denies recent memory loss, no recent seizure activity. PSYCHIATRIC: Denies anxiety, denies depression. HEMATOLOGIC/LYMPHATIC: Denies anemia, denies enlarged lymph nodes. Past Medical History Past Medical History: Cancer, COPD, Hypertension Additional Past Medical History / Comment(s): Currently on Vyvanse for end stage lung cancer with previous immunotherapy ended jun 2018, opdivo 6 treatments, had chemo/ radiation march 2018 History of Any Multi-Drug Resistant Organisms: None Reported Past Surgical History: Cholecystectomy, Orthopedic Surgery Additional Past Surgical History / Comment(s): left big toe surgery-has plate, egd Past Anesthesia/Blood Transfusion Reactions: No Reported Reaction Past Psychological History: Anxiety, Depression Additional Psychological History / Comment(s): Pt resides with his spouse. He is independent. 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 Smoking Status: Former smoker Past Alcohol Use History: None Reported Additional Past Alcohol Use History / Comment(s): QUIT 06/2015, SMOKED 1PPD SINCE AGE 17 (1977) Past Drug Use History: None Reported - Past Family History Mother Family Medical History: Cancer Additional Family Medical History / Comment(s): THROAT Sister(s) Family Medical History: Cancer Additional Family Medical History / Comment(s): LUNG Father Family Medical History: Diabetes Mellitus Medications and Allergies Home Medications Medication Instructions Recorded Confirmed Type Mirtazapine 30 mg PO HS 07/06/15 03/03/19 History Omeprazole [PriLOSEC] 20 mg PO DAILY 02/03/16 03/03/19 History clonazePAM [KlonoPIN] 1 mg PO HS 02/03/16 03/03/19 History FLUoxetine HCL [PROzac] 20 mg PO DAILY 12/23/17 03/03/19 History Albuterol Inhaler [Ventolin Hfa 2 puff INHALATION RT-Q6H #1 inhaler 12/25/17 03/03/19 Rx Inhaler] Furosemide [Lasix] 20 mg PO DAILY 09/13/18 03/03/19 History Ibuprofen [Motrin] 800 mg PO DAILY PRN 09/13/18 03/03/19 History Acetaminophen [Tylenol Extra 1,000 mg PO Q6H PRN 03/03/19 03/03/19 History Strength] Buprenorphine HCl/Naloxone HCl 1 film SL DAILY 03/03/19 03/03/19 History [Suboxone 2 mg-0.5 mg Sl Film] Lisdexamfetamine Dimesylate 40 mg PO DAILY 03/03/19 03/03/19 History [Vyvanse] Allergies Allergy/AdvReac Type Severity Reaction Status Date / Time naproxen sodium [From Aleve] Allergy Anaphylaxis Verified 03/03/19 15:30 venom-honey bee Allergy Anaphylaxis Verified 03/03/19 15:30 [bee venom (honey bee)] Physical Exam Vitals: Vital Signs Temp Pulse Pulse Resp BP BP Pulse Ox 03/04/19 12:02 98.9 F 101 H 18 100/64 94 L 03/04/19 08:15 101 H 18 03/04/19 05:44 99.7 F H 98 18 105/61 95 03/04/19 04:24 98 03/04/19 04:12 98 95 03/03/19 23:23 98.2 F 03/03/19 23:17 99 16 03/03/19 23:08 90 16 03/03/19 21:50 99.6 F 93 18 126/66 95 03/03/19 20:26 101 H 18 03/03/19 20:17 100 18 95 03/03/19 19:14 94 26 H 03/03/19 17:55 99.7 F H 94 18 140/84 95 03/03/19 16:30 84 24 114/77 96 03/03/19 16:00 88 25 H 111/72 97 03/03/19 15:09 100 03/03/19 15:01 100 03/03/19 14:13 98.6 F 97 18 127/57 98 Intake and Output 03/03/19 03/04/19 03/04/19 22:59 06:59 14:59 Other: # Voids 1 2 GENERAL EXAM: Alert, pleasant 58-year-old gentleman, on 3 L nasal cannula, comfortable in no apparent distress. HEAD: Normocephalic. EYES: Normal reaction of pupils, equal size. NOSE: Clear with pink turbinates. THROAT: No erythema or exudates. NECK: No masses, no JVD. CHEST: No chest wall deformity. LUNGS: Equal air entry with bilateral scattered rhonchi, few basilar crackles, diminished. CVS: S1 and S2 normal with no audible murmur, regular rhythm. ABDOMEN: No hepatosplenomegaly, normal bowel sounds, no guarding or rigidity. SPINE: No scoliosis or deformity SKIN: No rashes CENTRAL NERVOUS SYSTEM: No focal deficits, tone is normal in all 4 extremities. EXTREMITIES: There is no peripheral edema. No clubbing, no cyanosis. Peripheral pulses are intact. Results - Laboratory Findings CBC and BMP: 03/03/19 15:30 03/03/19 15:30 PT/INR, D-dimer PT 10.2 sec (9.0-12.0) 03/03/19 15:30 INR 0.9 (<1.2) 03/03/19 15:30 Abnormal lab findings: Abnormal Labs 03/03/19 03/03/19 03/03/19 15:30 15:30 15:30 Hgb 12.5 L Hct 37.8 L Lymphocytes # 0.7 L Glucose 100 H Plasma Lactic Acid Miko 2.3 H* - Diagnostic Findings Chest x-ray: image reviewed CT scan - chest: image reviewed Assessment and Plan Assessment: Impression: #1 Acute hypoxic respiratory failure secondary to progression of recurrent metastatic lung cancer and postobstructive pneumonia. #2 Squamous cell carcinoma of the lung, stage IV. Currently on Vyvanse. Had previously been on Opdiva in May 2018. Initial diagnosis in 2017 with chemo/radiation completed in February 2018. #3 Acute exacerbation of chronic obstructive pulmonary disease secondary to above. FEV1 value 41% of predicted. #4 History of chronic tobacco dependence. #5 Hypertension. #6 History of anxiety/depression. #7 History of narcotic use for chronic pain. Plan: The patient was seen and evaluated by Dr. Blanco. Chest x-ray CAT scan and labs all reviewed. He did have a discussion with the patient and his of s uspected progression of his lung disease despite being on immunotherapy in the form of Vyvanse. He is also has some underlying pneumonia which we will continue with Zosyn and Levaquin. Continue bronchodilators. Add IV Solu- Medrol. Oncology has been consulted. We'll continue to follow and make further recommendations based on his clinical status. I, the cosigning physician, performed a history & physical examination of the patient. Lungs sounds with bilateral scattered rhonchi, crackles in the bases, diminished. Maintaining good O2 saturations in the 90s on 3 L/m per nasal cannula. I discussed the assessment and plan of care with my nurse practitioner, Nafisa Fontenot. I attest to the above consultation as dictated by her. Time with Patient: Greater than 30
[2019-03-04] MEDS: IBUPROFEN 800 MG TAB PO PRN (14:41)
[2019-03-04] MEDS ORDERED: methylPREDNISolone SOD SUCCI 40 MG/ML 1 ML VIAL IV SCH (16:00)
[2019-03-04] MEDS ORDERED: predniSONE 20 MG TAB PO STA (16:01)
--- NOTE | 2019-03-04 16:53 | P.HPIM ---
History of Present Illness 58-year-old the male with the history of metastatic small cell lung cancer came in with compensative cough high-grade fever patient is found to have pneumonia in the right lower lobe appears to be postobstructive pneumonia patient has multiple metastatic lesions with the worsening cancer. Patient is on immunotherapy as he is not responding plan is to switch him to chemotherapy. Patient has some wheezing patient was started on IV steroids but patient doesn't like to take dose steroids and makes him jittery along with inhaled treatments which make him jittery as well. Patient was started on Zosyn and Levaquin will continue with Levaquin for today probably can discontinue that medication Zosyn will be continued.patient is agreeable to take oral prednisone. One dose of prednisone here today and if his wheezing is better probably can switch to inhaled steroids tomorrow. Review of Systems REVIEW OF SYSTEMS: CONSTITUTIONAL: as mentioned in HPI HEENT: No recent visual problems or hearing problems. Denied any sore throat. CARDIOVASCULAR: No chest pain, orthopnea, PND, no palpitations, no syncope. PULMONARY: as mentioned in HPI GASTROINTESTINAL: No diarrhea, no nausea, no vomiting, no abdominal pain. NEUROLOGICAL: No headaches, no weakness, no numbness. HEMATOLOGICAL: Denies any bleeding or petechiae. GENITOURINARY: Denies any burning micturition, frequency, or urgency. MUSCULOSKELETAL/RHEUMATOLOGICAL: Denies any joint pain, swelling, or any muscle pain. ENDOCRINE: Denies any polyuria or polydipsia. The rest of the 14-point review of systems is negative. Past Medical History Past Medical History: Cancer, COPD, Hypertension Additional Past Medical History / Comment(s): Currently on Vyvanse for end stage lung cancer with previous immunotherapy ended jun 2018, opdivo 6 treatments, had chemo/ radiation march 2018 History of Any Multi-Drug Resistant Organisms: None Reported Past Surgical History: Cholecystectomy, Orthopedic Surgery Additional Past Surgical History / Comment(s): left big toe surgery-has plate, egd Past Anesthesia/Blood Transfusion Reactions: No Reported Reaction Past Psychological History: Anxiety, Depression Additional Psychological History / Comment(s): Pt resides with his spouse. He is independent. 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 Smoking Status: Former smoker Past Alcohol Use History: None Reported Additional Past Alcohol Use History / Comment(s): QUIT 06/2015, SMOKED 1PPD SINCE AGE 17 (1977) Past Drug Use History: None Reported - Past Family History Mother Family Medical History: Cancer Additional Family Medical History / Comment(s): THROAT Sister(s) Family Medical History: Cancer Additional Family Medical History / Comment(s): LUNG Father Family Medical History: Diabetes Mellitus Medications and Allergies Home Medications Medication Instructions Recorded Confirmed Type Mirtazapine 30 mg PO HS 07/06/15 03/03/19 History Omeprazole [PriLOSEC] 20 mg PO DAILY 02/03/16 03/03/19 History FLUoxetine HCL [PROzac] 20 mg PO DAILY 12/23/17 03/03/19 History Albuterol Inhaler [Ventolin Hfa 2 puff INHALATION RT-Q6H #1 inhaler 12/25/17 03/03/19 Rx Inhaler] Furosemide [Lasix] 20 mg PO DAILY 09/13/18 03/03/19 History Ibuprofen [Motrin] 800 mg PO DAILY PRN 09/13/18 03/03/19 History Acetaminophen [Tylenol Extra 1,000 mg PO Q6H PRN 03/03/19 03/03/19 History Strength] Buprenorphine HCl/Naloxone HCl 1 film SL DAILY 03/03/19 03/03/19 History [Suboxone 2 mg-0.5 mg Sl Film] Lisdexamfetamine Dimesylate 40 mg PO DAILY 03/03/19 03/03/19 History [Vyvanse] Losartan Potassium 50 mg PO DAILY 03/04/19 03/04/19 History Metoprolol Succinate [Toprol XL] 50 mg PO DAILY 03/04/19 03/04/19 History clonazePAM [KlonoPIN] 1 mg PO HS 03/04/19 03/04/19 History Allergies Allergy/AdvReac Type Severity Reaction Status Date / Time naproxen sodium [From Aleve] Allergy Anaphylaxis Verified 03/03/19 15:30 venom-honey bee Allergy Anaphylaxis Verified 03/03/19 15:30 [bee venom (honey bee)] Physical Exam Vitals: Vital Signs Temp Pulse Pulse Resp BP Pulse Ox 03/04/19 16:25 88 03/04/19 16:13 90 98 03/04/19 16:00 101 H 18 03/04/19 12:02 98.9 F 101 H 18 100/64 94 L 03/04/19 08:15 101 H 18 03/04/19 05:44 99.7 F H 98 18 105/61 95 03/04/19 04:24 98 03/04/19 04:12 98 95 03/03/19 23:23 98.2 F 03/03/19 23:17 99 16 03/03/19 23:08 90 16 03/03/19 21:50 99.6 F 93 18 126/66 95 03/03/19 20:26 101 H 18 03/03/19 20:17 100 18 95 03/03/19 19:14 94 26 H 03/03/19 17:55 99.7 F H 94 18 140/84 95 Intake and Output 03/04/19 03/04/19 03/04/19 06:59 14:59 22:59 Other: # Voids 2 3 3 PHYSICAL EXAMINATION: GENERAL: The patient is alert and oriented x3, not in any acute distress. Well developed, well nourished. HEENT: Pupils are round and equally reacting to light. EOMI. No scleral icterus. No conjunctival pallor. Normocephalic, atraumatic. No pharyngeal erythema. No thyromegaly. CARDIOVASCULAR: S1 and S2 present. No murmurs, rubs, or gallops. PULMONARY:expiratory wheezing fairly good air entry into bilateral lung osorio, crackles in the right lower lung osorio ABDOMEN: Sof, nontender, nondistended, normoactive bowel sounds. No palpable organomegaly. MUSCULOSKELETAL: No joint swelling or deformity. EXTREMITIES: No cyanosis, clubbing, or pedal edema. NEUROLOGICAL: Gross neurological examination did not reveal any focal deficits. SKIN: No rashes. Results CBC & Chem 7: 03/03/19 15:30 03/03/19 15:30 Labs: Microbiology - Last 24 Hours (Table) 03/04/19 04:30 Sputum Culture - Preliminary Sputum Thrombosis Risk Factor Assmnt - Choose All That Apply Any of the Below Risk Factors Present?: Yes Each Factor Represents 1 point: Abnormal pulmonary function (COPD), Age 41-60 years Other Risk Factors: Yes Each Risk Factor Represents 2 Points: Malignancy Thrombosis Risk Factor Assessment Total Risk Factor Score: 4 Thrombosis Risk Factor Assessment Level: Moderate Risk Assessment and Plan Plan: -sepsis secondary to postobstructive pneumonia: Patient will continued on Zosyn and levofloxacin for now probably can be discussed continued tomorrow -COPD with mild acute exacerbation we will use oral steroids probably can be switched to inhaled steroids tomorrow continue with inhalational treatments. -metastatic squamous cell lung cancer stage IV and patient is on immunotherapy with the worsening cancer now may require chemo and radiation therapy. -anxiety and depression -Hypertension Due to prophylaxis as subcutaneous heparin
[2019-03-04] MEDS ORDERED: LEVOFLOXACIN 750MG-D5W PMX 750 MG in DEXTROSE/WATER 1 150ML.BAG IVPB SCH (17:00)
[2019-03-04] MEDS: IPRATROPIUM-ALBUTEROL 3 ML NEB INHALATION PRN (19:54)
[2019-03-04] MEDS: ALPRAZolam 0.25 MG TAB PO PRN (20:15)
[2019-03-04] MEDS: MIRTAZAPINE 15 MG TAB PO SCH (20:15)
[2019-03-04] MEDS: clonazePAM 1 MG TAB PO SCH (20:15)
[2019-03-05] MEDS: PIPERACILLIN-TAZOBACTAM 3.375 GM in SODIUM CHLORIDE 0.9% 100 ML IVPB SCH ×3 (00:38→18:04)
[2019-03-05 06:08] LABS: HCT 34.3 % (39.0-53.0); HGB 11.5 gm/dL (13.0-17.5); MCHC 33.4 g/dL (31.0-37.0); Mean Platelet Volume 5.9; Platelet Count 296 k/uL (150-450); RBC 3.95 m/uL (4.30-5.90); RDW 13.7 % (11.5-15.5)
[2019-03-05 06:35] LABS: African American GFR (CKD) >90 (>60 ml/min/1.73 sqM); Anion Gap 9 mmol/L; Blood Urea Nitrogen 9 mg/dL (9-20); Calcium 8.6 mg/dL (8.4-10.2); Carbon Dioxide 26 mmol/L (22-30); Chloride 103 mmol/L (98-107); Glucose 121 mg/dL (74-99); Potassium 4.3 mmol/L (3.5-5.1); Sodium 138 mmol/L (137-145)
[2019-03-05] MEDS: FLUoxetine HCL 20 MG CAP PO SCH (08:48)
[2019-03-05] MEDS: PANTOPRAZOLE 40 MG TABLET PO SCH (08:48)
[2019-03-05] MEDS: SODIUM CHLORIDE 0.9% 1,000 ML IV SCH (08:49)
[2019-03-05] MEDS: ALPRAZolam 0.25 MG TAB PO PRN (08:53)
[2019-03-05] MEDS ORDERED: predniSONE 20 MG TAB PO SCH (09:00)
[2019-03-05] MEDS ORDERED: METOPROLOL SUCCINATE (ER) 25 MG TAB.ER.24H PO SCH (09:00)
[2019-03-05] MEDS: LISDEXAMFETAMINE DIMESYLATE 40 MG PO SCH (09:20)
[2019-03-05] MEDS: IPRATROPIUM-ALBUTEROL 3 ML NEB INHALATION PRN ×2 (09:22→15:33)
--- NOTE | 2019-03-05 12:10 | P.PN ---
Subjective Progress Note Date: 03/05/19 Principal diagnosis: Postobstructive pneumonitis and metastatic lung cancer. This is a very pleasant 58-year-old gentleman that was first diagnosed as having stage IIIB squamous cell carcinoma of the lung and is status post chemoradiation therapy completed in January and February 2018 respectively. Subsequent CAT scan showed development of a pulmonary infiltration centrally in the right midlung and in the posterior segment of the right lower lobe and he was initiated on immunotherapy. He had a PET scan in December 2018 that showed significant improvement in the radiotracer accumulation within the right perihilar and right paratracheal regions. There was new foci of radiotracer within the posterior lungs bilaterally suspicious for new metastatic lesions. There is also foci radiotracer within the cecum. Cecal neoplasm was not excluded. The patient is currently on Vyvanse and follows with Dr. Shell. He presented here to the emergency room yesterday with complaints of increasing shortness of breath, cough and congestion. A CAT scan of the chest with contrast reveals worsening groundglass opacity at both lung bases. There is enlarging metastatic disease in the lower lobes bilaterally. Evidence of COPD and small bilateral effusions. He is seen today in consultation on the regular medical floor. He is currently awake and alert. Mild respiratory distress. Continues with cough and congestion. He is maintaining good O2 saturations in the mid 90s on 3 L/m per nasal cannula. T-max 99.7. Sputum culture pending. White count 6.8. Hemoglobin 12.5. Creatinine 0.94. Initial lactic acid 2.3, currently 1.3. Influenza screen negative. He has been initiated on Zosyn and Levaquin along with bronchodilators. Patient was reevaluated today on 03/05/2019, patient is basically about the same, slight improvement in his cough, and shortness of breath, however he is having issues with the high-dose of prednisone, making him agitated, restless, and had to take some Xanax. Patient had some night sweats last night. Hence I cut down the prednisone to 20 mg a day. CBC is relatively normal electrolytes are normal renal profile is normal, influenza screen was negative on admission Objective - Vital Signs Vital signs: Vital Signs Temp 98.5 F 03/05/19 11:31 Pulse 88 03/05/19 11:31 Resp 17 03/05/19 11:31 BP 95/58 03/05/19 11:31 Pulse Ox 88 L 03/05/19 11:31 Intake & Output 03/04/19 03/05/19 03/05/19 18:59 06:59 18:59 Intake Total 920 Balance 920 Intake: Intake, IV Titration 500 Amount Piperacillin-Tazobactam 3 100 .375 gm In Sodium Chloride 0.9% 100 ml @ 25 mls/hr IVPB Q8HR DEL Rx# :[id number] Sodium Chloride 0.9% 1, 400 000 ml @ 100 mls/hr IV . Q10H DEL Rx#:[id number] Oral 420 Other: # Voids 3 1 # Bowel Movements 1 - Exam Physical Exam: Revealed a very pleasant 58-year-old white male, in no distress. On 3 L nasal cannula. Head: Atraumatic normocephalic. HEENT:[Neck is supple.] [No neck masses.] [No thyromegaly.] [No JVD.] PERRLA, EOMI, no icterus. Chest: [Clear throughout, minimal fine crackles at the bases, and scattered rhonchi. No wheezes. No chest wall tenderness. Cardiac Exam: [Normal S1 and S2, no S3 gallop, no murmur.] Abdomen: [Soft, nontender, no megaly, no rebound, no guarding, normal bowel sounds.] Extremities: [No clubbing, no edema, no cyanosis.] Neurological Exam: [No focal neurologic deficit.] Alert and oriented 3. Psychiatric: Normal mood affect and normal mental status examination. Skin: No rashes. Lymphatics: No lymphadenopathy. - Labs CBC & Chem 7: 03/05/19 05:51 03/05/19 05:51 Labs: Abnormal Lab Results - Last 24 Hours (Table) 03/05/19 03/05/19 Range/Units 05:51 05:51 RBC 3.95 L (4.30-5.90) m/uL Hgb 11.5 L (13.0-17.5) gm/dL Hct 34.3 L (39.0-53.0) % Glucose 121 H (74-99) mg/dL Microbiology - Last 24 Hours (Table) 03/04/19 04:30 Gram Stain - Preliminary Sputum Sputum Culture - Preliminary 03/03/19 15:30 Blood Culture - Preliminary Blood No Growth after 24 hours Assessment and Plan Assessment: #1 Acute hypoxic respiratory failure secondary to progression of recurrent metastatic lung cancer and postobstructive pneumonia. #2 Squamous cell carcinoma of the lung, stage IV. Currently on Vyvanse. Had previously been on Opdiva in May 2018. Initial diagnosis in 2017 with chemo/radiation completed in February 2018. #3 Acute exacerbation of chronic obstructive pulmonary disease secondary to above. FEV1 value 41% of predicted. #4 History of chronic tobacco dependence. #5 Hypertension. #6 History of anxiety/depression. #7 History of narcotic use for chronic pain. Recommendation: Continue present treatment plan including antibiotics, patient is now on Zosyn and Levaquin, continue bronchodilators, cut down the prednisone to 20 mg daily. Patient will be seen by oncology today regarding his worsening CT of the chest and worsening metastatic lung cancer. Prognosis is extremely poor and guarded, we'll continue to follow. Time with Patient: Less than 30
[2019-03-05] MEDS: IBUPROFEN 800 MG TAB PO PRN (13:59)
--- NOTE | 2019-03-05 15:17 | CONS ---
CONSULTATION DATE OF SERVICE: March 05, 2019. REASON FOR CONSULTATION: Lung carcinoma. CHIEF COMPLAINT: Cough and shortness of breath. Hermilo is a very pleasant 58 years old gentleman very well known to me, who was initially diagnosed in December of 2017 with locally advanced non-small cell lung carcinoma of the lung when he presented with his cough and he had imaging studies which revealed a 5 cm mass in the right hilar region with patchy infiltrate in the periphery and narrowing of the right lower lobe bronchus along with subcarinal adenopathy. The patient had diagnostic bronchoscopy on December 27, 2017 which revealed endobronchial tumor occluding the right upper lobe bronchus and involving the secondary kasandra between the upper lobe and intermedius bronchus. Transbronchial biopsy was positive for squamous cell carcinoma of the lung. He did have further staging workup with a PET scan on January 01, 2018 which revealed suspicious mass in the right upper lobe and enlarged retrocaval pretracheal and left hilar node. His brain MRI was negative. The patient was treated with concurrent chemoradiation therapy with a transition of cisplatin and PEEL OVEN TENDER-16. He had 2 cycles of chemotherapy completed on 02/28/2018 and he completed radiation therapy on 03/16/2018. He was started on maintenance immunotherapy Infinzi however, due to pneumonitis, immunotherapy was discontinued. He was being followed after that until November of 2018 when he had a followup CT scan which revealed the disease progression and it which led to a repeat PET scan on December 17, 2018, which revealed suspicious uptake in bilateral lung nodules. The patient was started on second-line treatment. 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 The patient was started on second-line treatment with single agent Opdivo, which was started on 01/04/2019 on every 2 week schedule, he had a total of 5 treatment so far. However, he was readmitted to the hospital at this time and was complaining of worsening shortness of breath, cough and congestion. Had a CT scan of the chest, which revealed worsening ground-glass opacity at both lung bases and also enlarging bilateral lung nodules. He was started on antibiotics. He did have a low-grade fever 99.7 upon admission and his white cells were normal. He was started on IV antibiotics with Zosyn and Levaquin and started also on steroid and bronchodilators. This morning, feels better. He does not have any fever. He still has some cough, but the shortness of breath better. He is eating well. No recent weight loss. No headaches. No dysphagia. No nausea or vomiting. No melena, hematochezia, hematuria, hemoptysis, hematemesis or epistaxis. PAST MEDICAL HISTORY: In addition to what is stated above in regard to his lung carcinoma, he has a history of COPD, essential hypertension, and anxiety. PAST SURGICAL HISTORY: He has a colonoscopy, bilateral knee surgery, toe surgery. SOCIAL HISTORY: He used to smoke and quit in 2016. No alcohol abuse or substance abuse. REVIEW OF SYSTEMS: As stated above in history of present illness. ALLERGIES: He is allergic to ALEVE. CURRENT MEDICATION: Reviewed in his electronic medical record. PHYSICAL EXAMINATION: He is alert, oriented x3. He does not appear to be in acute distress at this time. Well developed and well nourished. His vital signs are temperature 98.5. Afebrile. Pulse 88, regular, respirations 16, blood pressure 95/58, pulse is 88. Respirations 16. HEENT: Normocephalic, atraumatic. No obvious scleral icterus. NECK: Supple. Chest equal expansion bilaterally. Lungs reveal scattered wheezes in all osorio. Heart is regular rate and rhythm. ABDOMEN: Soft. No obvious organomegaly or masses. Bowel sounds present. EXTREMITIES: No edema. Lymphatics no peripheral cervical supraclavicular nodes. Musculoskeletal: Moving all extremities appropriately. No percussion tenderness detected over spine or sternum. RECENT LABORATORY DATA: WBC are 8.0, hemoglobin 11.5, hematocrit 34.3, platelet 296. Sodium 138, potassium 4.3, chloride 101. CO2 is 27, BUN is 9, creatinine 0. IMPRESSION: 1. Recurrent squamous cell carcinoma of the lung with diagnostic and therapeutic circumstances stated above. The patient recently progressed on single agent Opdivo. 2. Cough and dyspnea that could be potentially related to immunotherapy related pneumonitis and in addition to his underlying chronic obstructive pulmonary disease and possible pneumonia. Overall, his respiratory status has been improved with current treatment with steroids and bronchodilators. RECOMMENDATIONS: 1. I did discuss the recent CAT scan finding with the patient and his . 2. We discussed again his diagnosis, prognosis and treatment options. The treatment is not on a curative intent. 3. I would recommend to discontinue Opdivo at this point in time. 4. We discussed next line of treatment which would involve chemotherapy. 5. We discussed single agent Taxotere. Potential side effects and he agreed to proceed with it. We will plan on starting that within the next 2 weeks in the outpatient setting. Thank you very much for asking me to participate in the care of this nice gentleman. PORFIRIO / GUADALUPE: [id number] /
[2019-03-05] MEDS ORDERED: METOPROLOL SUCCINATE (ER) 25 MG TAB.ER.24H PO STA (15:25)
--- NOTE | 2019-03-05 16:02 | P.PN ---
Subjective Patient admitted for right lower lobe pneumonia patient has postobstructive pneumonia and advancing worsening cancer failed immunotherapy. Patient is feeling much better today patient on Zosyn and 20 mg of prednisone patient is not wheezing today. Constitutional: Denied any fatigue denied any fever. Cardio vascular: denied any chest pain, palpitations Gastrointestinal denied any nausea vomiting Pulmonary: Denied any shortness of breath cough Neurologic denied any new focal deficits All inpatient medications were reviewed and appropriate changes in these medications as dictated in the interval history and assessment and plan. Objective - Vital Signs Vital signs: Vital Signs Temp 98.5 F 03/05/19 11:31 Pulse 86 03/05/19 15:46 Resp 17 03/05/19 11:31 BP 95/58 03/05/19 11:31 Pulse Ox 88 L 03/05/19 11:31 Intake & Output 03/04/19 03/05/19 03/05/19 18:59 06:59 18:59 Intake Total 920 Balance 920 Intake: Intake, IV Titration 500 Amount Piperacillin-Tazobactam 3 100 .375 gm In Sodium Chloride 0.9% 100 ml @ 25 mls/hr IVPB Q8HR DEL Rx# :[id number] Sodium Chloride 0.9% 1, 400 000 ml @ 100 mls/hr IV . Q10H DEL Rx#:[id number] Oral 420 Other: # Voids 3 1 3 # Bowel Movements 1 - Exam PHYSICAL EXAMINATION: GENERAL: The patient is alert and oriented x3, not in any acute distress. Well developed, well nourished. HEENT: Pupils are round and equally reacting to light. EOMI. No scleral icterus. No conjunctival pallor. Normocephalic, atraumatic. No pharyngeal erythema. No thyromegaly. CARDIOVASCULAR: S1 and S2 present. No murmurs, rubs, or gallops. PULMONARY: No wheezing today, crackles in the right lower lung osorio ABDOMEN: Sof, nontender, nondistended, normoactive bowel sounds. No palpable organomegaly. MUSCULOSKELETAL: No joint swelling or deformity. EXTREMITIES: No cyanosis, clubbing, or pedal edema. NEUROLOGICAL: Gross neurological examination did not reveal any focal deficits. SKIN: No rashes. - Labs CBC & Chem 7: 03/05/19 05:51 03/05/19 05:51 Labs: Abnormal Lab Results - Last 24 Hours (Table) 03/05/19 03/05/19 Range/Units 05:51 05:51 RBC 3.95 L (4.30-5.90) m/uL Hgb 11.5 L (13.0-17.5) gm/dL Hct 34.3 L (39.0-53.0) % Glucose 121 H (74-99) mg/dL Microbiology - Last 24 Hours (Table) 03/04/19 04:30 Gram Stain - Preliminary Sputum Sputum Culture - Preliminary 03/03/19 15:30 Blood Culture - Preliminary Blood No Growth after 24 hours Assessment and Plan Plan: -sepsis secondary to postobstructive pneumonia: Patient will continued on Zosyn IV fluids. -COPD with mild acute exacerbation patient is on inhalational treatments inhaled steroids and 20 mg of oral prednisone. -metastatic squamous cell lung cancer stage IV and patient is on immunotherapy with the worsening cancer now may require chemo and radiation therapy. -anxiety and depression -Hypertension Due to prophylaxis as subcutaneous heparin
[2019-03-05] MEDS ORDERED: LEVOFLOXACIN 750 MG TAB PO SCH (17:00)
[2019-03-05] MEDS: clonazePAM 1 MG TAB PO SCH (21:23)
[2019-03-05] MEDS: MIRTAZAPINE 15 MG TAB PO SCH (21:23)
[2019-03-06] MEDS: PIPERACILLIN-TAZOBACTAM 3.375 GM in SODIUM CHLORIDE 0.9% 100 ML IVPB SCH ×2 (00:53→09:05)
[2019-03-06] MEDS: SODIUM CHLORIDE 0.9% 1,000 ML IV SCH (05:30)
[2019-03-06] MEDS: PANTOPRAZOLE 40 MG TABLET PO SCH (08:59)
[2019-03-06] MEDS: FLUoxetine HCL 20 MG CAP PO SCH (08:59)
[2019-03-06] MEDS ORDERED: METOPROLOL SUCCINATE (ER) 25 MG TAB.ER.24H PO SCH (09:00)
[2019-03-06] MEDS ORDERED: predniSONE 20 MG TAB PO SCH (09:00)
[2019-03-06] MEDS: LISDEXAMFETAMINE DIMESYLATE 40 MG PO SCH (09:01)
--- NOTE | 2019-03-06 09:57 | XR ---
EXAMINATION TYPE: XR chest 2V DATE OF EXAM: 03/06/2019 COMPARISON: Prior chest x-ray 03/04/2019 HISTORY: Pneumonia, lung cancer TECHNIQUE: Frontal and lateral views of the chest are obtained. FINDINGS: Lungs are similar to prior exam. Interstitium is increased. Perihilar increased density is present. Suspect apical bullous changes in the right upper lobe. No evident pneumothorax or pleural effusion. Heart size is stable. IMPRESSION: Findings compatible with patient's history of lung cancer. Pneumonia not excluded. Emphy sema.
[2019-03-06] MEDS: IPRATROPIUM-ALBUTEROL 3 ML NEB INHALATION PRN (11:10)
[2019-03-06 11:45] VITALS: BP 119/59; PULSE 90; RESP 16; TEMP 97.2
--- NOTE | 2019-03-06 12:49 | PN ---
PROGRESS NOTE This is a 58-year-old male with a history of acute hypoxemic respiratory failure secondary to recurrent metastatic lung cancer with postobstructive pneumonia. The patient has met with the medical oncologist. They have a plan going forward for the next round of treatment. He previously was on Opdivo. That has been discontinued. The patient is feeling a bit improved from the respiratory standpoint. Still complaining of shortness of breath, chest tightness, wheezing, cough, and occasional phlegm production. He does have a history of stage IV squamous cell carcinoma of the lung. The patient has also history of underlying COPD, Gold stage III with an FEV1 that is 41% of predicted. In addition, he has a history of hypertension, anxiety/depression, history of noncardiac use for chronic pain and history of chronic tobacco dependence. Anyway, the patient appears to be doing a bit better. Less short of breath. The patient will follow up after discharge whenever that is with both Dr. Shell and Medical Oncology and also Dr. Montano in our office. Current vital signs include a temperature of 98.6, heart rate 97, respiratory rate 18, blood pressure 112/72, and a saturation of 97% on 2 L. Appears in no acute distress. Sitting at the bedside, talking to family members. No audible wheezing, use of accessory muscles or conversational dyspnea. HEENT: Examination is grossly unremarkable. Nasal O2 noted. NECK: Supple. Full range of motion. No adenopathy or thyromegaly. Neck veins are flat. CARDIOVASCULAR: Examination reveals regular rhythm and rate. Heart rate about 85 beats per minute. S1, S2 normal. No S3, S4, or murmur. LUNGS: Reveal mild coarse rhonchi. There are expiratory wheezes. There is prolongation on forced maneuver. Breath sounds equal bilaterally but diminished throughout. ABDOMEN: Soft. Bowel sounds are heard. EXTREMITIES: Intact. No cyanosis, clubbing, or edema. SKIN: Without rash. NEUROLOGIC: Examination is brief but nonfocal. Current labs, X-rays, and medications are all reviewed. ASSESSMENT: 1. Acute hypoxemic respiratory failure secondary to the patient's known lung cancer progression with postobstructive pneumonia. 2. Stage IV squamous cell carcinoma of the lung, currently on Opdivo. 3. Chronic obstructive pulmonary disease exacerbation in a patient with stage III COPD, with an FEV1 that is 41% of predicted. 4. History of chronic tobacco dependence. 5. History of hypertension. 6. History of anxiety/depression. 7. History of narcotic use for chronic pain. PLAN The patient will continue on his current regimen of medications. He is on good antibiotics, bronchodilators and steroids. We will continue to follow. After discharge, the patient will follow up with Dr. Shell and Medical Oncology to discuss a treatment going forward. This may include Taxotere for another chemotherapeutic agent as determined by Dr. Shell and he will follow up with Dr. Montano in our office to better ensure that his COPD is properly managed. No additional recommendations are made. Will continue to follow. Prognosis is very guarded. MMODL / IJN: [id number] / ALEKS
--- NOTE | 2019-03-07 08:49 | P.DS ---
Providers Date of admission: 03/04/19 12:26 Expected date of discharge: 03/06/19 Attending physician: Martín Gotti MD Consults: 03/03/19 16:59 Consult Physician Routine Consulting Provider: Kathy Montano Consult Reason/Comments: Pneumonia, lung ca Do you want consulting provider notified?: Yes 03/03/19 17:00 Consult Physician Routine Consulting Provider: Lilliana Shell Consult Reason/Comments: Lung cancer and pneumonia Do you want consulting provider notified?: Yes Primary care physician: [facility] Course: Final diagnosis -sepsis secondary to postobstructive pneumonia -COPD with mild acute exacerbation -metastatic squamous cell lung cancer stage IV -anxiety and depression -Hypertension -DVT prophylaxis Discharge disposition Patient is being discharged in a stable condition with guarded prognosis to home. Patient will follow-up with primary care provider as well as oncology and pulmonary upon discharge . Patient will continue on a short course of oral antibiotics and a short prednisone taper upon discharge. Total time taken is 35 minutes. History of present illness This is a 58-year-old male who was recently admitted for right lower lobe pneumonia with postobstructive pneumonia and advancing worsening cancer and was being closely monitored. Pulmonary and oncology were following. Patient will follow-up with oncology in the outpatient setting upon discharge for discussion of possible further treatment. Patient will also follow-up with pulmonary upon discharge for better medication management of COPD. Currently patient's co ndition is stable with much improvement and would like to go home today. Patient states that his breathing has improved. Patient states that he does have oxygen at home and uses as needed. Encourage the patient to continue using the incentive spirometer at least 10 times every hour while awake and patient verbalized understanding of this treatment plan. Patient denies any chest pain or palpitations at this time. Patient has been afebrile. Patient denies any nausea or vomiting and is tolerating diet. Patient will continue on a short course of oral antibiotics in the form of Augmentin along with a short prednisone taper for the next week. Patient will follow-up with primary care provider upon discharge as well. Guarded prognosis. On exam vital signs are stable. Blood pressure is 119/59 , pulse is 90 , Respirations are 16 , temp is any 7.2 degrees Fahrenheit, oxygen saturation is 90 % on room air. Cardio S1 and S2 are present. Respiratory system shows diminished breath sounds at the bases with some wheezing noted on expiration along with a few scattered rhonchi. Abdomen is soft and non-tender. Nervous system shows no focal deficits. Please refer to medication reconciliation sheet for a list of medications. Patient Condition at Discharge: Fair Plan - Discharge Summary Discharge Rx Participant: No New Discharge Prescriptions: New Amoxicillin/Potassium Clav [Augmentin 875-125 Tablet] 1 tab PO Q12HR 3 Days #6 tab predniSONE 10 mg PO DIRECTED #10 tab Metoprolol Succinate (ER) [Toprol XL] 25 mg PO DAILY 30 Days #30 tab.er.24h Continue Mirtazapine 30 mg PO HS Omeprazole [PriLOSEC] 20 mg PO DAILY FLUoxetine HCL [PROzac] 20 mg PO DAILY Ibuprofen [Motrin] 800 mg PO DAILY PRN PRN Reason: Pain Furosemide [Lasix] 20 mg PO DAILY Lisdexamfetamine Dimesylate [Vyvanse] 40 mg PO DAILY Buprenorphine HCl/Naloxone HCl [Suboxone 2 mg-0.5 mg Sl Film] 1 film SL DAILY Acetaminophen [Tylenol Extra Strength] 1,000 mg PO Q6H PRN PRN Reason: Pain Losartan Potassium 50 mg PO DAILY clonazePAM [KlonoPIN] 1 mg PO HS Albuterol Inhaler [Ventolin Hfa Inhaler] 2 puff INHALATION RT-Q6H 30 Days #1 inhaler Discontinued Metoprolol Succinate [Toprol XL] 50 mg PO DAILY Discharge Medication List Mirtazapine 30 mg PO HS 07/06/15 [History] Omeprazole [PriLOSEC] 20 mg PO DAILY 02/03/16 [History] FLUoxetine HCL [PROzac] 20 mg PO DAILY 12/23/17 [History] Furosemide [Lasix] 20 mg PO DAILY 09/13/18 [History] Ibuprofen [Motrin] 800 mg PO DAILY PRN 09/13/18 [History] Acetaminophen [Tylenol Extra Strength] 1,000 mg PO Q6H PRN 03/03/19 [History] Buprenorphine HCl/Naloxone HCl [Suboxone 2 mg-0.5 mg Sl Film] 1 film SL DAILY 03/03/19 [History] Lisdexamfetamine Dimesylate [Vyvanse] 40 mg PO DAILY 03/03/19 [History] Losartan Potassium 50 mg PO DAILY 03/04/19 [History] clonazePAM [KlonoPIN] 1 mg PO HS 03/04/19 [History] Albuterol Inhaler [Ventolin Hfa Inhaler] 2 puff INHALATION RT-Q6H 30 Days #1 inhaler 03/06/19 [Rx] Amoxicillin/Potassium Clav [Augmentin 875-125 Tablet] 1 tab PO Q12HR 3 Days #6 tab 03/06/19 [Rx] Metoprolol Succinate (ER) [Toprol XL] 25 mg PO DAILY 30 Days #30 tab.er.24h 03/06/19 [Rx] predniSONE 10 mg PO DIRECTED #10 tab 03/06/19 [Rx] Follow up Appointment(s)/Referral(s): Damien Irwin DO [Primary Care Provider] - 03/09/19 10:45 am Kathy Montano MD [STAFF PHYSICIAN] - 03/10/19 1:00 pm Lilliana Shell MD [Family Provider] - 03/07/19 9:00 am Patient Instructions/Handouts: Metoprolol (By mouth), Albuterol (By breathing), Prednisone (By mouth), Amoxicillin/Clavulanate Potassium (By mouth), Pneumonia (DC) Activity/Diet/Wound Care/Special Instructions: Activity limited until follow up continue current diet Discharge Disposition: HOME SELF-CARE
== END 2019-03-06 12:12 | disposition home or self-care (01) | DRG 871 ==
LOC: EC 14:01 → 3NMEDONC 17:12 → OBSVTOIN 03-04 12:26
PROVIDERS: ADMIT Internal Medicine; ATTEND Internal Medicine
DX: A41.9 Sepsis, unspecified organism (principal); J18.9 Pneumonia, unspecified organism; J96.01 Acute respiratory failure with hypoxia; J44.1 Chronic obstructive pulmonary disease with (acute) exacerbation; C34.90 Malignant neoplasm of unspecified part of unspecified bronchus or lung; F41.9 Anxiety disorder, unspecified; F32.9 Major depressive disorder, single episode, unspecified; I10 Essential (primary) hypertension; Z87.891 Personal history of nicotine dependence
CPT/HCPCS: 36415; 71046; 71260; 80048; 80053; 83605; 85025; 85027; 85610; 85730; 87040; 87070; 87205; 87502; 93005; 94640; 94760; 96360; 99285

== ENCOUNTER → 2019-05-08 | Outpatient (CLI) | payer OTHER ==
--- NOTE | 2019-05-08 14:48 | XR ---
EXAMINATION TYPE: XR chest 2V DATE OF EXAM: 05/08/2019 COMPARISON: 03/10/2019 TECHNIQUE: PA and lateral views submitted. HISTORY: Lung cancer FINDINGS: A chronic rib cage deformity in the left. Bilateral areas of consolidation or mass are stable. Pulmon pacheco mass medial aspect right lower lobe stable. No pleural effusion or pneumothorax. Interstitium on the left is improved. Emphysematous changes noted. IMPRESSION: 1. Right lower lobe mass stable. 2. Bilateral hilar consolidation, adenopathy or mass is stable. 3. Interval improvement of the interstitium on the left suggestive of resolving interstitial process.
== END | disposition home or self-care (01) ==
LOC: RADXRMAIN 14:27
PROVIDERS: ATTEND Registered Nurse Oncology
DX: R91.8 Other nonspecific abnormal finding of lung field (principal); C34.11 Malignant neoplasm of upper lobe, right bronchus or lung; D70.2 Other drug-induced agranulocytosis; J44.9 Chronic obstructive pulmonary disease, unspecified; I10 Essential (primary) hypertension
CPT/HCPCS: 71046

== ENCOUNTER 2019-05-13 18:46 | Emergency (ER) | payer OTHER ==
[2019-05-13] MEDS ORDERED: SODIUM CHLORIDE 0.9% 1,000 ML IV STA (19:31)
[2019-05-13] MEDS ORDERED: SODIUM CHLORIDE 0.9% 500 ML 500 ML IV STA (19:31)
[2019-05-13 20:10] LABS: HCT 35.7 % (39.0-53.0); HGB 11.9 gm/dL (13.0-17.5); MCH 28.2 pg (25.0-35.0); MCHC 33.3 g/dL (31.0-37.0); MCV 84.6 fL (80.0-100.0); Mean Platelet Volume 6.9; Platelet Count 275 k/uL (150-450); RBC 4.21 m/uL (4.30-5.90); RDW 15.4 % (11.5-15.5); WBC 2.4 k/uL (3.8-10.6)
--- NOTE | 2019-05-13 20:21 | ED ---
Fever HPI - General Chief Complaint: Fever Stated Complaint: Fever Time Seen by Provider: 05/13/19 19:20 Source: patient, RN notes reviewed Mode of arrival: ambulatory Limitations: no limitations - History of Present Illness Initial Comments: ago had blood cultures done and was placed on Levaquin but still has fevers went up as high as 100.5. He does have a cough with phlegm production is no different than his usual is having occasional blood in his sputum. He does have exertional dyspnea and shortness of breath which is no worse than his usual he states. He was instructed to come in if his temperature got above 100.4 no chills or sweats no nausea vomiting no other symptoms at this time. He does have a history of COPD. MD Complaint: fever, other - Related Data Home Medications Medication Instructions Recorded Confirmed Mirtazapine 30 mg PO HS 07/06/15 03/03/19 Omeprazole [PriLOSEC] 20 mg PO DAILY 02/03/16 03/03/19 FLUoxetine HCL [PROzac] 20 mg PO DAILY 12/23/17 03/03/19 Furosemide [Lasix] 20 mg PO DAILY 09/13/18 03/03/19 Ibuprofen [Motrin] 800 mg PO DAILY PRN 09/13/18 03/03/19 Acetaminophen [Tylenol Extra 1,000 mg PO Q6H PRN 03/03/19 03/03/19 Strength] Buprenorphine HCl/Naloxone HCl 1 film SL DAILY 03/03/19 03/03/19 [Suboxone 2 mg-0.5 mg Sl Film] Lisdexamfetamine Dimesylate 40 mg PO DAILY 03/03/19 03/03/19 [Vyvanse] Losartan Potassium 50 mg PO DAILY 03/04/19 03/04/19 clonazePAM [KlonoPIN] 1 mg PO HS 03/04/19 03/04/19 Previous Rx's Medication Instructions Recorded Albuterol Inhaler [Ventolin Hfa 2 puff INHALATION RT-Q6H 30 Days 03/06/19 Inhaler] #1 inhaler Amoxicillin/Potassium Clav 1 tab PO Q12HR 3 Days #6 tab 03/06/19 [Augmentin 875-125 Tablet] Metoprolol Succinate (ER) [Toprol 25 mg PO DAILY 30 Days #30 03/06/19 XL] tab.er.24h predniSONE 10 mg PO DIRECTED #10 tab 03/06/19 Allergies Allergy/AdvReac Type Severity Reaction Status Date / Time naproxen sodium [From Aleve] Allergy Anaphylaxis Verified 05/13/19 19:05 venom-honey bee Allergy Anaphylaxis Verified 05/13/19 19:05 [bee venom (honey bee)] Review of Systems ROS Statement: Those systems with pertinent positive or pertinent negative responses have been documented in the HPI. ROS Other: All systems not noted in ROS Statement are negative. Past Medical History Past Medical History: Cancer, COPD, Hypertension Additional Past Medical History / Comment(s): Currently on Vyvanse for end stage lung cancer with previous immunotherapy ended jun 2018, opdivo 6 treatments, had chemo/ radiation march 2018 History of Any Multi-Drug Resistant Organisms: None Reported Past Surgical History: Cholecystectomy, Orthopedic Surgery Additional Past Surgical History / Comment(s): left big toe surgery-has plate, egd Past Anesthesia/Blood Transfusion Reactions: No Reported Reaction Past Psychological History: Anxiety, Depression Smoking Status: Former smoker Past Alcohol Use History: None Reported Past Drug Use History: None Reported - Past Family History Mother Family Medical History: Cancer Additional Family Medical History / Comment(s): THROAT Sister(s) Family Medical History: Cancer Additional Family Medical History / Comment(s): LUNG Father Family Medical History: Diabetes Mellitus General Exam - General Exam Comments Initial Comments: This is a well-developed well-nourished awake alert oriented 3 male Limitations: no limitations General appearance: alert, in no apparent distress Head exam: Present: atraumatic, normocephalic, normal inspection Eye exam: Present: normal appearance, PERRL, EOMI. Absent: scleral icterus, conjunctival injection, periorbital swelling ENT exam: Present: normal exam, mucous membranes moist Neck exam: Present: normal inspection, full ROM. Absent: tenderness, meningismus, lymphadenopathy Respiratory exam: Present: decreased breath sounds. Absent: respiratory distress, wheezes, rales, rhonchi, stridor Cardiovascular Exam: Present: regular rate, normal rhythm, normal heart sounds. Absent: systolic murmur, diastolic murmur, rubs, gallop, clicks GI/Abdominal exam: Present: soft, normal bowel sounds. Absent: distended, tenderness, guarding, rebound, rigid Extremities exam: Present: normal inspection, full ROM, normal capillary refill. Absent: tenderness, pedal edema, joint swelling, calf tenderness Back exam: Present: normal inspection Neurological exam: Present: alert, oriented X3, CN II-XII intact Psychiatric exam: Present: normal affect, normal mood Skin exam: Present: warm, dry, intact, normal color. Absent: rash Course Vital Signs 05/13/19 05/13/19 19:01 22:12 Temperature 100.2 F H 98.4 F Pulse Rate 95 86 Respiratory 18 16 Rate Blood Pressure 89/61 102/73 O2 Sat by Pulse 94 L 96 Oximetry Medical Decision Making - Medical Decision Making Patient is feeling well his temperature is normalized she is rehydrated. We did have a long discussion regarding the findings the patient would like to be discharged and follow-up with Dr. Shell as planned in 3 days. We did have a long discussion regarding follow-up and also instructed to come back if anything changes or if is any questions. I did discuss this with Dr. Riggins who did return a page this is acceptable at this time. - Lab Data Result diagrams: 05/13/19 19:55 05/13/19 19:55 Lab Results 05/13/19 05/13/19 05/13/19 Range/Units 19:55 19:55 19:55 WBC 2.4 L (3.8-10.6) k/uL RBC 4.21 L (4.30-5.90) m/uL Hgb 11.9 L (13.0-17.5) gm/dL Hct 35.7 L (39.0-53.0) % MCV 84.6 (80.0-100.0) fL MCH 28.2 (25.0-35.0) pg MCHC 33.3 (31.0-37.0) g/dL RDW 15.4 (11.5-15.5) % Plt Count 275 (150-450) k/uL Neutrophils % (Manual) 38 % Lymphocytes % (Manual) 35 % Monocytes % (Manual) 27 % Neutrophils # (Manual) 0.91 L (1.3-7.7) k/uL Lymphocytes # (Manual) 0.84 L (1.0-4.8) k/uL Monocytes # (Manual) 0.65 (0-1.0) k/uL Nucleated RBCs 0 (0-0) /100 WBC Manual Slide Review Performed Sodium 138 (137-145) mmol/L Potassium 4.6 (3.5-5.1) mmol/L Chloride 104 (98-107) mmol/L Carbon Dioxide 25 (22-30) mmol/L Anion Gap 9 mmol/L BUN 22 H (9-20) mg/dL Creatinine 1.28 H (0.66-1.25) mg/dL Est GFR (CKD-EPI)AfAm 70 (>60 ml/min/1.73 sqM) Est GFR (CKD-EPI)NonAf 61 (>60 ml/min/1.73 sqM) Glucose 120 H (74-99) mg/dL Plasma Lactic Acid Miko 1.5 (0.7-2.0) mmol/L Calcium 8.8 (8.4-10.2) mg/dL Magnesium 1.9 (1.6-2.3) mg/dL Total Bilirubin 0.5 (0.2-1.3) mg/dL AST 23 (17-59) U/L ALT 19 (4-49) U/L Alkaline Phosphatase 82 (38-126) U/L Creatine Kinase 60 (55-170) U/L Total Protein 6.6 (6.3-8.2) g/dL Albumin 3.6 (3.5-5.0) g/dL - Radiology Data Radiology results: report reviewed (I did review the imaging and report or is evidence of bilateral hilar infiltrates consistent with the lung cancer the patient reports. No change from the previous.), image reviewed Disposition Clinical Impression: Non-small cell lung cancer, Pneumonitis, Fever Disposition: HOME SELF-CARE Condition: Good Instructions (If sedation given, give patient instructions): Fever in Adults ( ED), Non-Small Cell Lung Cancer (ED) Additional Instructions: Continue with your Levaquin prescription and keep her follow-up with Dr. Shell as planned. Return if any problems Is patient prescribed a controlled substance at d/c from ED?: No Referrals: Damien Irwin DO [Primary Care Provider] - 1-2 days
[2019-05-13 20:22] LABS: Albumin 3.6 g/dL (3.5-5.0); Calcium 8.8 mg/dL (8.4-10.2); Magnesium 1.9 mg/dL (1.6-2.3); Potassium 4.6 mmol/L (3.5-5.1); Total Bilirubin 0.5 mg/dL (0.2-1.3); Total Protein 6.6 g/dL (6.3-8.2)
[2019-05-13 20:36] LABS: Lymphocytes # (M) 0.84 k/uL (1.0-4.8); Monocytes # (M) 0.65 k/uL (0-1.0); Neutrophils # (M) 0.91 k/uL (1.3-7.7); Neutrophils % (M) 38 %; Nucleated Red Blood Cells 0 /100 WBC (0-0); Total Cells Counted 100
--- NOTE | 2019-05-13 20:58 | XR ---
EXAMINATION TYPE: XR chest 2V DATE OF EXAM: 05/13/2019 COMPARISON: 05/08/2019 HISTORY: Lung cancer. Fever. TECHNIQUE: FINDINGS: There is some spiculated infiltrate and masslike density at the pulmonary teresa bilaterally. There is increased density extending into the left lower lobe. There are multiple old left side heal ed rib fractures. There is no heart failure. Heart size is normal. IMPRESSION: Spiculated infiltrate at the pulmonary teresa and some infiltrate superior segment left low er lobe consistent with treated lung cancer. No change compared to last exam. No heart failure seen. No increasing pulmonary density.
[2019-05-13 23:17] VITALS: BP 105/70; PULSE 66; RESP 20
[2019-05-13 23:47] VITALS: TEMP 99.2
== END 2019-05-13 23:13 | disposition home or self-care (01) ==
LOC: EC 18:46
DX: J18.9 Pneumonia, unspecified organism (principal); C34.90 Malignant neoplasm of unspecified part of unspecified bronchus or lung; J44.0 Chronic obstructive pulmonary disease with (acute) lower respiratory infection; I10 Essential (primary) hypertension; F41.9 Anxiety disorder, unspecified; F32.9 Major depressive disorder, single episode, unspecified; Z92.21 Personal history of antineoplastic chemotherapy; Z80.2 Family history of malignant neoplasm of other respiratory and intrathoracic organs; Z87.891 Personal history of nicotine dependence; Z79.891 Long term (current) use of opiate analgesic; Z79.899 Other long term (current) drug therapy; Z88.6 Allergy status to analgesic agent; Z91.030 Bee allergy status
CPT/HCPCS: 36415; 71046; 80053; 82550; 83605; 83735; 85025; 87040; 96360; 96361; 99283

== ENCOUNTER → 2019-05-25 | Outpatient (CLI) | payer OTHER ==
[2019-05-25 08:51] LABS: African American GFR (CKD) >90 (>60 ml/min/1.73 sqM); Blood Urea Nitrogen 15 mg/dL (9-20); Non-African American GFR(CKD) >90 (>60 ml/min/1.73 sqM)
--- NOTE | 2019-05-25 10:48 | CT ---
EXAMINATION TYPE: CT ChestAbdPelvis w con DATE OF EXAM: 05/25/2019 COMPARISON: 03/04/2019 and 12/17/2018 HISTORY: 58-year-old male observation for metastases, Lung cancer TECHNIQUE: Contiguous axial scanning of the chest, abdomen, and pelvis performed with IV Contrast, pa tient injected with 100 mL of Isovue 300. Delayed images through the kidneys were obtained. Coronal/s agittal reconstructions performed. CT DLP: 1573.7 mGycm Automated exposure control for dose reduction was used. FINDINGS: CHEST: Heart normal size without pericardial effusion. Aorta normal caliber with conventional contrast branching anatomy. - Lower right paratracheal lymph node measures 1.2 cm versus 1.1 cm, previously. - Left paratracheal lymph nodes measure up to 9 mm, unchanged. - Subcarinal lymph node smaller at 1.5 cm versus 1.7 cm, previously. - Right infrahilar lymph node measures 1.2 cm, unchanged. - Left paraesophageal soft tissue at the lower thoracic level measures 1.7 cm versus 1.3 cm, previous ly, axial image 46. Continued bilateral hilar soft tissue encasement with a central interstitial thickening with associat ed groundglass, significantly improved from 03/04/2019 throughout the mid and lower lungs. Moderate centrilobular emphysema is present. Stable left apical pleural-parenchymal scarring. - There seems to be a new 1.4 cm subpleural pulmonary nodule anteromedial left upper lobe, axial imag e 14. - New 9 mm subpleural pulmonary nodule peripheral left midlung, axial image 34. - Known left lower lobe mass increased in size at 3.7 cm versus 2.7 cm, previously. The previous cent ral cavitation is filled with fluid. - Known lesion posterior right lower lobe measures 2.6 cm versus 2.3 cm, previously now with similar cavitation. - An adjacent 1.4 cm right lower lobe pulmonary nodule previously measured 1.1 cm on 03/04/2019 and i s not clearly seen on 12/17/2018. ABDOMEN: Stable hypervascularity along the left hepatic margin, axial and 56, likely vascular shunting. No arina iary ductal dilatation. Portal venous system is patent. Cholecystectomy clips are Adrenal glands, kidneys, spleen, and pancreas appear within normal limits. No dilated small bowel, free fluid, or free air. Prominent wilbur hepatic lymph node at 9 mm unchanged from 12/17/2018. No mesenteric or retroperitonea l lymphadenopathy otherwise seen. Normal appendix. Mild stool burden. Mild distal sigmoid diverticulosis. No pericolonic inflammatory c hange. Moderate atherosclerotic calcifications and plaque within the infrarenal abdominal aorta and iliac ar teries. No aneurysm. PELVIS: Prostate gland measures 3.9 cm wide. Bilateral vasectomy clips. Bladder is urine distended. No abnorm al fluid collection in the pelvis or pelvic lymphadenopathy. BONES: Degenerative disc disease L3-L4 and L5-S1. No osseous destructive process seen. Old left-sided rib fr acture deformities. IMPRESSION: 1. SIGNIFICANT INTERVAL IMPROVEMENT OF THE PREVIOUS EXTENSIVE BILATERAL GROUNDGLASS DENSITIES, SUGGES TING RESOLUTION OF PNEUMONITIS. 2. THE LOWER LOBE MASSES HAVE INCREASED IN SIZE. FOR EXAMPLE, TWO IN THE RIGHT LOWER LOBE MEASURE 2.6 AND 1.4 CM (VERSUS 2.3 AND 1.1 CM, PREVIOUSLY, RESPECTIVELY). THE LEFT LOWER LOBE MASS MEASURES 3.7 CM VERSUS 2.7 CM, PREVIOUSLY. 3. NEW 1.4 CM SUBPLEURAL PULMONARY NODULE LEFT UPPER LOBE AND 9 MM SUBPLEURAL PULMONARY NODULE LEFT M ID LUNG. THESE SHOULD BE CLOSELY FOLLOWED NEW METASTASES ARE NOT EXCLUDED AT THIS TIME. 4. A LOWER LEFT PARAESOPHAGEAL SOFT TISSUE NODULE HAS INCREASED AT 1.7 CM VERSUS 1.3 CM, PREVIOUSLY. 5. OTHERWISE, RELATIVELY STABLE BORDERLINE TO MILDLY ENLARGED MEDIASTINAL LYMPH NODES MEASURING UP TO 1.1 CM. THE SUBCARINAL LYMPH NODE HAS DECREASED IN SIZE AND WAS PROBABLY REACTIVE. 6. EXTENSIVE PERIHILAR VOLUME LOSS AND CONSOLIDATION, SUSPECT CHRONIC POSTTREATMENT CHANGE.
== END | disposition home or self-care (01) ==
LOC: RADCTMAIN 08:02
PROVIDERS: ATTEND Internal Medicine Hematology & Oncology
DX: R91.8 Other nonspecific abnormal finding of lung field (principal); R59.0 Localized enlarged lymph nodes; C34.11 Malignant neoplasm of upper lobe, right bronchus or lung
CPT/HCPCS: 82565; 84520; 71260; 74177; 36415; Q9967 ×2

== ENCOUNTER 2019-06-19 22:29 | Inpatient (IN) | payer OTHER ==
[2019-06-19] MEDS ORDERED: IPRATROPIUM-ALBUTEROL 3 ML NEB INHALATION STA (22:50)
--- NOTE | 2019-06-19 23:02 | ED ---
SOB HPI - General Chief Complaint: Shortness of Breath Stated Complaint: Respitory issues Time Seen by Provider: 06/19/19 22:40 Source: patient, family Mode of arrival: wheelchair Limitations: no limitations - History of Present Illness Initial Comments: This patient is a 58-year-old man with history of COPD and history of stage IV lung cancer, who presents with complaint that he has had worsening shortness of breath, cough, and intermittent fever getting worse since yesterday. The patient states that he has had increased sputum production was some brownish sputum. He states that he has been more short of breath and actually used oxygen at home which is not usual for him. MD Complaint: shortness of breath, cough Onset/Timin -: days(s) Consistency: constant Improves With: oxygen Worsens With: nothing Known History Of: COPD, other (Lung cancer) Associated Symptoms: fever, cough, sputum production Treatments Prior to Arrival: oxygen - Related Data Home Oxygen Therapy: No Home Medications Medication Instructions Recorded Confirmed Mirtazapine 30 mg PO HS 07/06/15 03/03/19 Omeprazole [PriLOSEC] 20 mg PO DAILY 02/03/16 03/03/19 FLUoxetine HCL [PROzac] 20 mg PO DAILY 12/23/17 03/03/19 Furosemide [Lasix] 20 mg PO DAILY 09/13/18 03/03/19 Ibuprofen [Motrin] 800 mg PO DAILY PRN 09/13/18 03/03/19 Acetaminophen [Tylenol Extra 1,000 mg PO Q6H PRN 03/03/19 03/03/19 Strength] Buprenorphine HCl/Naloxone HCl 1 film SL DAILY 03/03/19 03/03/19 [Suboxone 2 mg-0.5 mg Sl Film] Lisdexamfetamine Dimesylate 40 mg PO DAILY 03/03/19 03/03/19 [Vyvanse] Losartan Potassium 50 mg PO DAILY 03/04/19 03/04/19 clonazePAM [KlonoPIN] 1 mg PO HS 03/04/19 03/04/19 Previous Rx's Medication Instructions Recorded Albuterol Inhaler [Ventolin Hfa 2 puff INHALATION RT-Q6H 30 Days 03/06/19 Inhaler] #1 inhaler Amoxicillin/Potassium Clav 1 tab PO Q12HR 3 Days #6 tab 03/06/19 [Augmentin 875-125 Tablet] Metoprolol Succinate (ER) [Toprol 25 mg PO DAILY 30 Days #30 03/06/19 XL] tab.er.24h predniSONE 10 mg PO DIRECTED #10 tab 03/06/19 Allergies Allergy/AdvReac Type Severity Reaction Status Date / Time naproxen sodium [From Aleve] Allergy Anaphylaxis Verified 06/19/19 22:34 venom-honey bee Allergy Anaphylaxis Verified 06/19/19 22:34 [bee venom (honey bee)] Review of Systems ROS Statement: Those systems with pertinent positive or pertinent negative responses have been documented in the HPI. ROS Other: All systems not noted in ROS Statement are negative. Constitutional: Reports: fever, chills. Denies: weakness Respiratory: Reports: cough, dyspnea, wheezes. Denies: hemoptysis Cardiovascular: Denies: chest pain, palpitations, orthopnea, edema, syncope Gastrointestinal: Denies: abdominal pain, vomiting, diarrhea Genitourinary: Denies: dysuria, hematuria Musculoskeletal: Denies: back pain Skin: Denies: rash Neurological: Denies: headache, weakness, numbness Past Medical History Past Medical History: Cancer, COPD, Hypertension Additional Past Medical History / Comment(s): Currently on Vyvanse for end stage lung cancer with previous immunotherapy ended jun 2018, opdivo 6 treatments, had chemo/ radiation march 2018 History of Any Multi-Drug Resistant Organisms: None Reported Past Surgical History: Cholecystectomy, Orthopedic Surgery Additional Past Surgical History / Comment(s): left big toe surgery-has plate, egd Past Anesthesia/Blood Transfusion Reactions: No Reported Reaction Past Psychological History: Anxiety, Depression Smoking Status: Former smoker Past Alcohol Use History: None Reported Past Drug Use History: None Reported - Past Family History Mother Family Medical History: Cancer Additional Family Medical History / Comment(s): THROAT Sister(s) Family Medical History: Cancer Additional Family Medical History / Comment(s): LUNG Father Family Medical History: Diabetes Mellitus General Exam Limitations: no limitations General appearance: alert, in distress Head exam: Present: atraumatic, normocephalic Eye exam: Present: normal appearance. Absent: scleral icterus, conjunctival injection Respiratory exam: Present: respiratory distress, wheezes, rhonchi, accessory muscle use. Absent: rales, stridor, decreased breath sounds Cardiovascular Exam: Present: normal rhythm, tachycardia, normal heart sounds. Absent: systolic murmur, diastolic murmur, rubs, gallop GI/Abdominal exam: Present: soft. Absent: distended, tenderness, guarding, rebound, rigid, mass Extremities exam: Present: normal inspection, normal capillary refill. Absent: pedal edema, calf tenderness Back exam: Present: normal inspection. Absent: CVA tenderness (R), CVA tenderness (L) Neurological exam: Present: alert Skin exam: Present: warm, dry, intact, normal color. Absent: rash Course Vital Signs 06/19/19 06/19/19 06/19/19 22:34 23:01 23:28 Temperature 98.1 F Pulse Rate 110 H 101 H 101 H Respiratory 18 Rate Blood Pressure 99/55 O2 Sat by Pulse 86 L Oximetry Medical Decision Making - Lab Data Result diagrams: 06/19/19 23:18 06/19/19 23:18 Lab Results 06/19/19 06/19/19 06/19/19 Range/Units 23:18 23:18 23:18 WBC 9.7 (3.8-10.6) k/uL RBC 4.34 (4.30-5.90) m/uL Hgb 12.2 L (13.0-17.5) gm/dL Hct 37.0 L (39.0-53.0) % MCV 85.3 (80.0-100.0) fL MCH 28.2 (25.0-35.0) pg MCHC 33.0 (31.0-37.0) g/dL RDW 15.0 (11.5-15.5) % Plt Count 193 (150-450) k/uL Neutrophils % 82 % Lymphocytes % 6 % Monocytes % 6 % Eosinophils % 4 % Basophils % 1 % Neutrophils # 7.9 H (1.3-7.7) k/uL Lymphocytes # 0.6 L (1.0-4.8) k/uL Monocytes # 0.6 (0-1.0) k/uL Eosinophils # 0.4 (0-0.7) k/uL Basophils # 0.1 (0-0.2) k/uL Hypochromasia Slight PT (9.0-12.0) sec INR (<1.2) APTT (22.0-30.0) sec D-Dimer (<0.60) mg/L FEU Sodium 135 L (137-145) mmol/L Potassium 4.6 (3.5-5.1) mmol/L Chloride 99 (98-107) mmol/L Carbon Dioxide 28 (22-30) mmol/L Anion Gap 8 mmol/L BUN 24 H (9-20) mg/dL Creatinine 0.94 (0.66-1.25) mg/dL Est GFR (CKD-EPI)AfAm >90 (>60 ml/min/1.73 sqM) Est GFR (CKD-EPI)NonAf 89 (>60 ml/min/1.73 sqM) Glucose 115 H (74-99) mg/dL Plasma Lactic Acid Miko 1.3 (0.7-2.0) mmol/L Calcium 9.1 (8.4-10.2) mg/dL Total Bilirubin 0.7 (0.2-1.3) mg/dL AST 32 (17-59) U/L ALT 14 (4-49) U/L Alkaline Phosphatase 84 (38-126) U/L Troponin I (0.000-0.034) ng/mL NT-Pro-B Natriuret Pep pg/mL Total Protein 7.4 (6.3-8.2) g/dL Albumin 4.1 (3.5-5.0) g/dL Influenza Type A RNA (Not Detectd) Influenza Type B (PCR) (Not Detectd) 06/19/19 06/19/19 06/20/19 Range/Units 23:18 23:18 00:01 WBC (3.8-10.6) k/uL RBC (4.30-5.90) m/uL Hgb (13.0-17.5) gm/dL Hct (39.0-53.0) % MCV (80.0-100.0) fL MCH (25.0-35.0) pg MCHC (31.0-37.0) g/dL RDW (11.5-15.5) % Plt Count (150-450) k/uL Neutrophils % % Lymphocytes % % Monocytes % % Eosinophils % % Basophils % % Neutrophils # (1.3-7.7) k/uL Lymphocytes # (1.0-4.8) k/uL Monocytes # (0-1.0) k/uL Eosinophils # (0-0.7) k/uL Basophils # (0-0.2) k/uL Hypochromasia PT (9.0-12.0) sec INR (<1.2) APTT (22.0-30.0) sec D-Dimer (<0.60) mg/L FEU Sodium (137-145) mmol/L Potassium (3.5-5.1) mmol/L Chloride (98-107) mmol/L Carbon Dioxide (22-30) mmol/L Anion Gap mmol/L BUN (9-20) mg/dL Creatinine (0.66-1.25) mg/dL Est GFR (CKD-EPI)AfAm (>60 ml/min/1.73 sqM) Est GFR (CKD-EPI)NonAf (>60 ml/min/1.73 sqM) Glucose (74-99) mg/dL Plasma Lactic Acid Miko (0.7-2.0) mmol/L Calcium (8.4-10.2) mg/dL Total Bilirubin (0.2-1.3) mg/dL AST (17-59) U/L ALT (4-49) U/L Alkaline Phosphatase (38-126) U/L Troponin I <0.012 (0.000-0.034) ng/mL NT-Pro-B Natriuret Pep 208 pg/mL Total Protein (6.3-8.2) g/dL Albumin (3.5-5.0) g/dL Influenza Type A RNA Not Detected (Not Detectd) Influenza Type B (PCR) Not Detected (Not Detectd) 06/20/19 Range/Units 00:23 WBC (3.8-10.6) k/uL RBC (4.30-5.90) m/uL Hgb (13.0-17.5) gm/dL Hct (39.0-53.0) % MCV (80.0-100.0) fL MCH (25.0-35.0) pg MCHC (31.0-37.0) g/dL RDW (11.5-15.5) % Plt Count (150-450) k/uL Neutrophils % % Lymphocytes % % Monocytes % % Eosinophils % % Basophils % % Neutrophils # (1.3-7.7) k/uL Lymphocytes # (1.0-4.8) k/uL Monocytes # (0-1.0) k/uL Eosinophils # (0-0.7) k/uL Basophils # (0-0.2) k/uL Hypochromasia PT 10.2 (9.0-12.0) sec INR 1.0 (<1.2) APTT 26.9 (22.0-30.0) sec D-Dimer 2.02 H (<0.60) mg/L FEU Sodium (137-145) mmol/L Potassium (3.5-5.1) mmol/L Chloride (98-107) mmol/L Carbon Dioxide (22-30) mmol/L Anion Gap mmol/L BUN (9-20) mg/dL Creatinine (0.66-1.25) mg/dL Est GFR (CKD-EPI)AfAm (>60 ml/min/1.73 sqM) Est GFR (CKD-EPI)NonAf (>60 ml/min/1.73 sqM) Glucose (74-99) mg/dL Plasma Lactic Acid Miko (0.7-2.0) mmol/L Calcium (8.4-10.2) mg/dL Total Bilirubin (0.2-1.3) mg/dL AST (17-59) U/L ALT (4-49) U/L Alkaline Phosphatase (38-126) U/L Troponin I (0.000-0.034) ng/mL NT-Pro-B Natriuret Pep pg/mL Total Protein (6.3-8.2) g/dL Albumin (3.5-5.0) g/dL Influenza Type A RNA (Not Detectd) Influenza Type B (PCR) (Not Detectd) - EKG Data -: EKG Interpreted by Pa EKG shows normal: sinus rhythm, axis (Normal), intervals (Normal), QRS complexes (Normal), ST-T waves (Normal) Rate: tachycardia (Rate 104 bpm) Disposition Clinical Impression: Pneumonia, COPD exacerbation Disposition: ADMITTED IP TO THIS HOSP Condition: Poor Referrals: Damien Irwin DO [Primary Care Provider] - 1-2 days
--- NOTE | 2019-06-19 23:36 | XR ---
EXAMINATION TYPE: XR chest 2V DATE OF EXAM: 06/19/2019 COMPARISON: 05/13/2019 HISTORY: Difficulty breathing TECHNIQUE: 2 views FINDINGS: Heart size is normal. There is some spiculated density at both pulmonary teresa. There is mere ear density extending into the left lower lobe and into the lateral right upper lobe. There are old l eft-sided healed rib fractures. There is no heart failure. There is no pleural effusion. There are ch est leads. IMPRESSION: Bilateral somewhat spiculated infiltrate at the pulmonary teresa consistent with treated candice ng cancer that is unchanged compared to last exam. No definite new pulmonary density compared to old exam. No heart failure seen.
[2019-06-19 23:56] LABS: ALT 14 U/L (4-49); AST 32 U/L (17-59); African American GFR (CKD) >90 (>60 ml/min/1.73 sqM); Albumin 4.1 g/dL (3.5-5.0); Alkaline Phosphatase 84 U/L (38-126); Anion Gap 8 mmol/L; Blood Urea Nitrogen 24 mg/dL (9-20); Calcium 9.1 mg/dL (8.4-10.2); Carbon Dioxide 28 mmol/L (22-30); Chloride 99 mmol/L (98-107); Glucose 115 mg/dL (74-99); Non-African American GFR(CKD) 89 (>60 ml/min/1.73 sqM); Sodium 135 mmol/L (137-145); Total Bilirubin 0.7 mg/dL (0.2-1.3); Total Protein 7.4 g/dL (6.3-8.2)
[2019-06-20 00:14] LABS: Basophils # (A) 0.1 k/uL (0-0.2); Basophils % (A) 1 %; Eosinophils # (A) 0.4 k/uL (0-0.7); Eosinophils % (A) 4 %; HGB 12.2 gm/dL (13.0-17.5); Hypochromasia Slight; Lymphocytes # (A) 0.6 k/uL (1.0-4.8); Lymphocytes % (A) 6 %; MCH 28.2 pg (25.0-35.0); MCV 85.3 fL (80.0-100.0); Mean Platelet Volume 7.8; Monocytes # (A) 0.6 k/uL (0-1.0); Monocytes % (A) 6 %; Neutrophils # (A) 7.9 k/uL (1.3-7.7); Neutrophils % (A) 82 %; Platelet Count 193 k/uL (150-450); RBC 4.34 m/uL (4.30-5.90); WBC 9.7 k/uL (3.8-10.6)
[2019-06-20 00:15] LABS: Potassium 4.6 mmol/L (3.5-5.1)
[2019-06-20] MEDS ORDERED: ACETAMINOPHEN TAB 325 MG TAB PO STA (01:01)
[2019-06-20] MEDS ORDERED: PIPERACILLIN-TAZOBACTAM 3.375 GM in SODIUM CHLORIDE 0.9% 100 ML IVPB STA (01:02)
[2019-06-20] MEDS ORDERED: LEVOFLOXACIN 750 MG TAB PO STA (01:03)
[2019-06-20 01:08] LABS: Partial Thromboplastin Time 26.9 sec (22.0-30.0); Prothrombin Time 10.2 sec (9.0-12.0)
[2019-06-20 01:10] LABS: D-Dimer 2.02 mg/L FEU (<0.60)
--- NOTE | 2019-06-20 02:02 | CT ---
EXAMINATION TYPE: CT chest angio for PE DATE OF EXAM: 06/20/2019 COMPARISON: HISTORY: Patient presents with elevated d-dimer. H/x of lung CA. CT DLP: 551.3 mGycm Automated exposure control for dose reduction was used. CONTRAST: Performed with IV Contrast, patient injected with 60mL mL of Isovue 370. Multiple axial sections were obtained from the thoracic inlet to the diaphragm with intravenous contr ast. There are 3-D post processed images. FINDINGS: There are masslike infiltrates around both pulmonary teresa. There is a 3 cm rounded soft tissue mass l eft lower lobe. There is a cavitating 3 cm mass in the subpleural posterior right lower lobe. There i s no pleural effusion. Heart size is normal. There is no pericardial effusion. There is pulmonary emp hysema. There is coarse interstitial density in both lungs. Emphysema more noticeable in the right upper lobe. There is normal contrast opacification of the pulmonary arteries. There are no filling defects. Thoracic vertebra have normal alignment. Posterior elements are intact. There is no compression fract ure. There is some osteosclerosis in the T8 vertebral body. Thoracic aorta shows no evidence of aneurysm or dissection. IMPRESSION: No evidence of pulmonary embolism. Bilateral lower lobe pulmonary masses consistent with tumor. Extensive perihilar pulmonary infiltrate s. Osteoblastic changes in the T8 vertebra could relate to metastatic disease.
[2019-06-20] MEDS ORDERED: PNEUMONIA PROTOCOL UTILIZED 1 EACH MISC PO PRN (02:05)
[2019-06-20] MEDS ORDERED: ALBUTEROL NEBULIZED 2.5 MG/3 ML INHALATION PRN (02:05)
[2019-06-20] MEDS ORDERED: IBUPROFEN 800 MG TAB PO PRN (02:07)
[2019-06-20] MEDS ORDERED: ACETAMINOPHEN TAB 500 MG TAB PO PRN (02:07)
[2019-06-20] MEDS ORDERED: predniSONE 10 MG TAB PO SCH (02:15)
[2019-06-20] MEDS: SODIUM CHLORIDE 0.9% 1,000 ML IV SCH (03:15)
[2019-06-20] MEDS: PANTOPRAZOLE 40 MG TABLET PO SCH (06:17)
[2019-06-20] MEDS: IPRATROPIUM-ALBUTEROL 3 ML NEB INHALATION SCH ×4 (07:04→20:31)
[2019-06-20] MEDS: METOPROLOL SUCCINATE (ER) 25 MG TAB.ER.24H PO SCH (08:34)
[2019-06-20] MEDS: FLUoxetine HCL 20 MG CAP PO SCH (08:34)
[2019-06-20] MEDS: FUROSEMIDE 20 MG TAB PO SCH (08:34)
[2019-06-20] MEDS ORDERED: LOSARTAN 50 MG TAB PO SCH (09:00)
[2019-06-20] MEDS: NALOXONE HCL SUBLINGUAL SCH (09:21)
[2019-06-20] MEDS: Lisdexamfetamine Dimesylate [Vyvanse] 40 MG PO SCH (09:21)
[2019-06-20] MEDS: BUPRENORPHINE HCL SUBLINGUAL SCH (09:21)
[2019-06-20] MEDS: PIPERACILLIN-TAZOBACTAM 3.375 GM in SODIUM CHLORIDE 0.9% 100 ML IVPB SCH ×2 (10:17→17:54)
[2019-06-20] MEDS ORDERED: HYDROcodone/APAP 5-325MG 1 EACH TAB PO PRN (14:45)
[2019-06-20] MEDS ORDERED: ALPRAZolam 0.25 MG TAB PO PRN (14:45)
[2019-06-20] MEDS ORDERED: TEMAZEPAM 15 MG CAP PO PRN (14:45)
[2019-06-20] MEDS: methylPREDNISolone SOD SUCCI 125 MG/2 ML VIAL IV SCH ×2 (15:15→17:54)
[2019-06-20] MEDS ORDERED: SODIUM CHLORIDE 0.9% 500 ML 250 ML IV ONE ×2 (15:21→16:13)
--- NOTE | 2019-06-20 16:47 | HP ---
HISTORY AND PHYSICAL DATE OF SERVICE: 06/20/2019 CHIEF COMPLAINTS: Shortness of breath, cough and sputum. HISTORY OF PRESENT ILLNESS: This 58-year-old gentleman with a past medical history of multiple medical problems, including stage IV squamous cell lung cancer, history of COPD, history of hypertension, history of cholecystectomy, history of anxiety, depression, being followed by Dr. Damien Irwin and Dr. Shell, was diagnosed to have right lung squamous cell carcinoma in 2018. The patient had chemotherapy, radiation and immunotherapy with Opdivo and . The patient also had hemoptysis. The patient has a previous history of pneumonia with sepsis also. Currently the patient is complaining of weakness, tired, cough and sputum. The patient came to [facility]. Bilateral perihilar pneumonia was suspected. The patient as admitted for further evaluation and treatment. There is no history of any fever, rigor or chills. No history of headache, loss of consciousness, seizures at this time. PAST MEDICAL HISTORY: History of COPD, hypertension, stage IV lung cancer as mentioned, cholecystectomy, DJD. HOME MEDICATIONS: 1. Promethazine/codeine 5 mL q.6 p.r.n. 2. Prilosec 20 mg p.o. daily. 3. Remeron 30 mg p.o. at bedtime. 4. Toprol-XL 50 mg p.o. daily. 5. Losartan 100 mg p.o. daily. 6. Prozac 20 mg p.o. daily. 7. Klonopin 1 mg p.o. b.i.d. 8. Lasix 20 mg p.o. daily. 9. Suboxone 1 sublingually daily. ALLERGIES: NAPROSYN, BEE VENOM. FAMILY HISTORY: History of cancer in the family. Mother had throat cancer. She was a smoker. SOCIAL HISTORY: Previous history of smoking. No current smoking or alcohol intake. REVIEW OF SYSTEMS: ENT: No diminished hearing. No diminished vision. CARDIOVASCULAR SYSTEM: As mentioned earlier. RESPIRATORY SYSTEM: As mentioned earlier. GI: No nausea, vomiting. : No dysuria or retention. NERVOUS SYSTEM: No numbness, weakness. ALLERGY/IMMUNOLOGY: No asthma, hayfever. MUSCULOSKELETAL: As mentioned earlier. HEMATOLOGY/ONCOLOGY: As mentioned earlier. ENDOCRINE: No history of diabetes, hypothyroidism. CONSTITUTIONAL: As mentioned earlier. DERMATOLOGY: Negative. RHEUMATOLOGY: Negative. PSYCHIATRY: As mentioned earlier. PHYSICAL EXAMINATION: Patient alert and oriented x3. Pulse 76, blood pressure 91/53, respirations 16, temperature 98.3, pulse ox 98% on 2 L. HEENT: Conjunctivae normal. Oral mucosa moist. NECK: No jugular venous distention. No carotid bruit. No lymph node enlargement. CARDIOVASCULAR SYSTEM: S1, S2 muffled. No S3. No S4. RESPIRATORY SYSTEM: Breath sounds diminished at the bases. Bilateral scattered rhonchi and crackles. ABDOMEN: Soft, non-tender. No mass palpable. LEGS: No edema. No swelling. NERVOUS SYSTEM: Higher functions as mentioned earlier. Moves all 4 limbs. No focal motor or sensory deficit. LYMPHATICS: No lymph node palpable in neck, axillae or groin. SKIN: No ulcer, rash, bleeding. JOINTS: No active deforming arthropathy. LABS: WBC 9.7, hemoglobin 12.2. D-dimer is 2.02. Sodium 135. Glucose 115. Influenza negative. ASSESSMENT: 1. Chronic obstructive pulmonary disease, acute exacerbation, with bilateral perihilar pneumonia, possibly Gram-negative. 2. Anemia, normocytic; anemia of malignancy. 3. Stage IV squamous cell carcinoma with metastases. 4. Hyponatremia. 5. Elevated D-dimer without any evidence of pulmonary embolism. 6. History of chronic obstructive pulmonary disease. 7. History of hemoptysis. 8. History of pneumonia and sepsis. 9. History of hypertension. 10.History of gastritis. 11.History of diverticular disease. 12.History of cholecystectomy. 13.History of degenerative joint disease with ACL repair. 14.Anxiety, depression. 15.Remote history of nicotine dependence. RECOMMENDATIONS AND DISCUSSION: In this 58-year-old gentleman who presented with multiple complex medical issues, we will monitor the patient closely, continue the current medications, continue symptomatic treatment. Will initiate broad-spectrum IV antibiotics. I would also recommend consultation with Pulmonary as well as Hematology/Oncology. Follow the cultures. The prognosis is extremely guarded because of multiple complex medical issues. Further recommendations to follow. A copy of this dictation is being forwarded to Dr. Damien Irwin, who is the primary physician. MMODL / IJN: [id number] / MTDD
[2019-06-20 17:21] LABS: Glucose,Whole Blood 227 mg/dL (75-99)
[2019-06-20] MEDS: INSULIN ASPART (NovoLOG) 100 UNIT/ML VIAL SQ SCH ×2 (17:54→21:21)
[2019-06-20] MEDS: BUDESONIDE 1 MG/2 ML NEBU INHALATION SCH (20:31)
[2019-06-20] MEDS: FORMOTEROL FUMARATE 20 MCG/2 ML NEBU INHALATION SCH (20:31)
[2019-06-20] MEDS ORDERED: clonazePAM 0.5 MG TAB PO SCH (21:00)
[2019-06-20 21:02] LABS: Glucose,Whole Blood 191 mg/dL (75-99)
[2019-06-20] MEDS: MIRTAZAPINE 15 MG TAB PO SCH (21:20)
[2019-06-20] MEDS: clonazePAM 1 MG TAB PO SCH (21:25)
[2019-06-20] MEDS: HEPARIN SODIUM,PORCINE 5,000 UNIT/ML 1 ML VIAL SQ SCH (21:25)
--- NOTE | 2019-06-20 22:41 | P.CONS ---
History of Present Illness - Reason for Consult Consult date: 06/20/19 Pneumonia Requesting physician: Erica Velásquez - Chief Complaint Cough and shortness of breath few days - History of Present Illness Patient is a 58-year-old male with a past medical history significant for COPD and stage IV lung cancer in this patient who is status post radiation, patient is presenting to the hospital with chief complaints of increasing shortness of breath that has been getting worse over the last few days the patient also have be complaining of cough which has been moderate intensity and has been bringing up some brownish sputum and no hemoptysis the patient denies significant pleuritic chest pain. Denies having any nausea no vomiting no choking on the food and no bowel pain and no diarrhea with the symptoms and the patient was evaluated by the ER physician on arrival to the ER the patient did have a fever of 102F patient was tachycardic however his white count was normal, influenza PCR was negative, the patient did have a CT angiogram that was negative for PE however he did show bilateral lower lobe pulmonary masses consistent with tumor with extensive perihilar pulmonary infiltrate and osteoblastic lesion of T8 vertebra consistent with metastatic disease, patient was admitted to the hospital he was started on Zosyn and Levaquin infectious disease was consulted for management of antibiotic therapy Review of Systems Positive point has been mentioned in the HPI rest of the systems are negative Past Medical History Past Medical History: Cancer, COPD, Hypertension Additional Past Medical History / Comment(s): 2018 diagnosed with R lung squamous cell [id number] IV/tx with chemo/radiation, immunotherapy/opdivo and vyvanse, hemoptysis, pneumonia with sepsis, past HTN-no longer on med, increased heart rate, occasionall lower leg edema, gastritis, diverticular disease. History of Any Multi-Drug Resistant Organisms: None Reported Past Surgical History: Cholecystectomy, Orthopedic Surgery Additional Past Surgical History / Comment(s): Bronchoscopies/biopsies, EGD, colonoscopy, L knee ACL repair, bilateral knee arthroscopies, left great toe surgery-has plate, egd Past Anesthesia/Blood Transfusion Reactions: No Reported Reaction Smoking Status: Former smoker - Past Family History Mother Family Medical History: Cancer Additional Family Medical History / Comment(s): Mother had throat cancer, she was a smoker. Sister(s) Family Medical History: Cancer Additional Family Medical History / Comment(s): Sister had lung cancer. She was a smoker. Father Family Medical History: Diabetes Mellitus Medications and Allergies Home Medications Medication Instructions Recorded Confirmed Type Mirtazapine 30 mg PO HS 07/06/15 06/20/19 History Omeprazole [PriLOSEC] 20 mg PO DAILY 02/03/16 06/20/19 History FLUoxetine HCL [PROzac] 20 mg PO DAILY 12/23/17 06/20/19 History Furosemide [Lasix] 20 mg PO DAILY 09/13/18 06/20/19 History Buprenorphine HCl/Naloxone HCl 1 film SL DAILY 03/03/19 06/20/19 History [Suboxone 2 mg-0.5 mg Sl Film] Losartan Potassium 100 mg PO DAILY 06/20/19 06/20/19 History Metoprolol Succinate (ER) [Toprol 50 mg PO DAILY 06/20/19 06/20/19 History Xl] Promethazine HCl/Codeine 5 ml PO Q6H PRN 06/20/19 06/20/19 History [Promethazine-Codeine Syrup] clonazePAM [KlonoPIN] 1 mg PO BID 06/20/19 06/20/19 History Allergies Allergy/AdvReac Type Severity Reaction Status Date / Time naproxen sodium [From Aleve] Allergy Anaphylaxis Verified 06/20/19 09:34 venom-honey bee Allergy Anaphylaxis Verified 06/20/19 09:34 [bee venom (honey bee)] Physical Exam Vitals: Vital Signs Temp Pulse Pulse Resp BP BP BP 06/20/19 20:52 80 18 06/20/19 20:43 84 18 06/20/19 20:42 84 16 06/20/19 20:31 82 16 06/20/19 17:22 98.7 F 82 18 94/60 06/20/19 16:50 68 90/58 06/20/19 16:07 82/58 06/20/19 15:17 75 81/51 06/20/19 12:49 98.3 F 76 16 91/53 06/20/19 11:13 84 06/20/19 11:01 88 06/20/19 08:35 78 110/70 06/20/19 07:14 84 06/20/19 07:04 84 06/20/19 05:54 98.3 F 06/20/19 05:50 80 18 102/65 06/20/19 03:49 100 18 121/88 06/20/19 00:30 99.9 F H 06/19/19 23:30 102 F H 06/19/19 23:28 101 H 06/19/19 23:01 101 H Pulse Ox 06/20/19 20:52 06/20/19 20:43 06/20/19 20:42 06/20/19 20:31 06/20/19 17:22 95 06/20/19 16:50 06/20/19 16:07 06/20/19 15:17 06/20/19 12:49 98 06/20/19 11:13 06/20/19 11:01 06/20/19 08:35 06/20/19 07:14 06/20/19 07:04 06/20/19 05:54 06/20/19 05:50 93 L 06/20/19 03:49 94 L 06/20/19 00:30 06/19/19 23:30 06/19/19 23:28 06/19/19 23:01 Intake and Output 06/20/19 06/20/19 06/20/19 06:59 14:59 22:59 Intake Total 400 Balance 400 Intake: Oral 400 Other: Voiding Method Urinal # Voids 1 Weight 92.986 kg GENERAL DESCRIPTION: Middle-aged male lying in bed, no distress. No tachypnea or accessory muscle of respiration use. HEENT: Shows Pallor , no scleral icterus. Oral mucous membrane is dry. No pharyngeal erythema or thrush NECK: Trachea central, no thyromegaly. LUNGS: Unlabored breathing. Course breath sounds bilaterally. No wheeze or crackle. HEART: S1, S2, regular rate and rhythm. No loud murmur ABDOMEN: Soft, no tenderness , guarding or rigidity, no organomegaly EXTREMITIES: No edema of feet. SKIN: No rash, no masses palpable. NEUROLOGICAL: The patient is awake, alert, oriented x3, mood and affect normal. Results CBC & Chem 7: 06/19/19 23:18 06/19/19 23:18 Labs: Abnormal Lab Results - Last 24 Hours (Table) 06/19/19 06/19/19 06/20/19 Range/Units 23:18 23:18 00:23 Hgb 12.2 L (13.0-17.5) gm/dL Hct 37.0 L (39.0-53.0) % Neutrophils # 7.9 H (1.3-7.7) k/uL Lymphocytes # 0.6 L (1.0-4.8) k/uL D-Dimer 2.02 H (<0.60) mg/L FEU Sodium 135 L (137-145) mmol/L BUN 24 H (9-20) mg/dL Glucose 115 H (74-99) mg/dL POC Glucose (mg/dL) (75-99) mg/dL 06/20/19 06/20/19 Range/Units 17:19 21:00 Hgb (13.0-17.5) gm/dL Hct (39.0-53.0) % Neutrophils # (1.3-7.7) k/uL Lymphocytes # (1.0-4.8) k/uL D-Dimer (<0.60) mg/L FEU Sodium (137-145) mmol/L BUN (9-20) mg/dL Glucose (74-99) mg/dL POC Glucose (mg/dL) 227 H 191 H (75-99) mg/dL Assessment and Plan Assessment: 1-patient presented to the hospital with sepsis in this patient who did have fever tachycardia [place]ugent likely pneumonia in this patient with a history of stage IV lung cancer with extensive perihilar infiltrate concerning likely for community acquired pneumonia and underlying gram-negative pneumonia not entirely excluded (1) Sepsis Current Visit: Yes Status: Acute Code(s): A41.9 - SEPSIS, UNSPECIFIED ORGANISM SNOMED Code(s): 42347503 (2) Pneumonia Current Visit: Yes Status: Acute Code(s): J18.9 - PNEUMONIA, UNSPECIFIED ORGANISM SNOMED Code(s): 934016851 Plan: 1- obtained sputum for Gram stain and culture 2-Zosyn 3.375 g every 8 hours and Levaquin will be continued We will follow on clinical condition and cultures to further adjust medication if needed Thank you for this consultation will follow this patient with you Time with Patient: Greater than 30
[2019-06-21] MEDS: methylPREDNISolone SOD SUCCI 125 MG/2 ML VIAL IV SCH ×4 (01:17→17:14)
[2019-06-21] MEDS: LEVOFLOXACIN 750 MG TAB PO SCH (01:17)
[2019-06-21] MEDS: PIPERACILLIN-TAZOBACTAM 3.375 GM in SODIUM CHLORIDE 0.9% 100 ML IVPB SCH ×3 (01:17→17:14)
[2019-06-21] MEDS: SODIUM CHLORIDE 0.9% 1,000 ML IV SCH (06:19)
[2019-06-21] MEDS: NALOXONE HCL SUBLINGUAL SCH (07:08)
[2019-06-21] MEDS: BUPRENORPHINE HCL SUBLINGUAL SCH (07:08)
[2019-06-21 07:24] LABS: Glucose,Whole Blood 163 mg/dL (75-99)
[2019-06-21] MEDS: HEPARIN SODIUM,PORCINE 5,000 UNIT/ML 1 ML VIAL SQ SCH ×2 (08:05→21:35)
[2019-06-21] MEDS: LOSARTAN 50 MG TAB PO SCH (08:06)
[2019-06-21] MEDS: METOPROLOL SUCCINATE (ER) 25 MG TAB.ER.24H PO SCH (08:06)
[2019-06-21] MEDS: INSULIN ASPART (NovoLOG) 100 UNIT/ML VIAL SQ SCH ×4 (08:08→21:35)
[2019-06-21] MEDS: clonazePAM 1 MG TAB PO SCH ×2 (08:08→21:35)
[2019-06-21] MEDS: FLUoxetine HCL 20 MG CAP PO SCH (08:08)
[2019-06-21] MEDS: PANTOPRAZOLE 40 MG TABLET PO SCH (08:08)
[2019-06-21] MEDS: FUROSEMIDE 20 MG TAB PO SCH (08:08)
[2019-06-21] MEDS: FORMOTEROL FUMARATE 20 MCG/2 ML NEBU INHALATION SCH ×2 (08:33→20:45)
[2019-06-21] MEDS: IPRATROPIUM-ALBUTEROL 3 ML NEB INHALATION SCH ×4 (08:33→20:45)
[2019-06-21] MEDS: BUDESONIDE 1 MG/2 ML NEBU INHALATION SCH ×2 (08:33→20:45)
[2019-06-21 08:43] LABS: Basophils % (A) 0 %; Eosinophils % (A) 0 %; HCT 36.7 % (39.0-53.0); HGB 11.5 gm/dL (13.0-17.5); Hypochromasia Moderate; Lymphocytes # (A) 0.3 k/uL (1.0-4.8); Lymphocytes % (A) 3 %; MCH 27.4 pg (25.0-35.0); MCHC 31.3 g/dL (31.0-37.0); MCV 87.8 fL (80.0-100.0); Mean Platelet Volume 7.3; Monocytes # (A) 0.1 k/uL (0-1.0); Monocytes % (A) 1 %; Neutrophils # (A) 8.8 k/uL (1.3-7.7); Neutrophils % (A) 95 %; Platelet Count 308 k/uL (150-450); RBC 4.18 m/uL (4.30-5.90); WBC 9.3 k/uL (3.8-10.6)
[2019-06-21 08:50] LABS: African American GFR (CKD) >90 (>60 ml/min/1.73 sqM); Anion Gap 8 mmol/L; Blood Urea Nitrogen 22 mg/dL (9-20); Calcium 8.5 mg/dL (8.4-10.2); Carbon Dioxide 23 mmol/L (22-30); Chloride 108 mmol/L (98-107); Glucose 195 mg/dL (74-99); Non-African American GFR(CKD) >90 (>60 ml/min/1.73 sqM); Potassium 4.3 mmol/L (3.5-5.1); Sodium 139 mmol/L (137-145)
[2019-06-21] MEDS: Lisdexamfetamine Dimesylate [Vyvanse] 40 MG PO SCH (08:56)
--- NOTE | 2019-06-21 08:56 | P.CONS ---
History of Present Illness - Reason for Consult Consult date: 06/21/19 squamous cell lung cancer Requesting physician: Erica Velásquez - Chief Complaint difficulty in breathing - History of Present Illness Mr. Barnes is a very pleasant 58-year-old male patient of Dr. Shell presented with hemoptysis 12/24/17. CT chest revealed a 5 cm mass in the right hilar region, patchy infiltrates in the periphery, narrowing of the right lower lobe bronchus, 2.[address]. [address] AP was negative. Bronchoscopy 12/27/17 revealed endobronchial tumor occluding right upper lobe involving the secondary kasandra between the upper and intermediate bronchus, transbronchial biopsy positive for squamous cell carcinoma of the lung. Staging PET scan showed uptake in the right upper lobe mass, retrocaval and pretracheal lymph nodes, slight uptake in a left hilar node, brain MRI was negative for metastases. Patient was started on concurrent chemotherapy and radiation completed 02/28/18 and 03/16/18 respectively. Treatment follow-up CT 04/05/18 revealed significant improvement. Patient was started on maintenance imfinzi 04/20/18. Patient had stable disease on CT 06/21/18. Unfortunately, patient developed pneumonitis (immunotherapy versus radiation?) and the treatment was discontinued. Follow-up scans showed no evidence of disease, repeat bronchoscopy 09/15/18 no evidence of recurrent malignancy, biopsies showed reactive and inflammatory changes. 11/21/18 CT revealed new lung nodules. PET 12/17/18 showed suspicious uptake in bilateral lung nodules. Patient was started on nivolumab 01/04/19. 03/04/[address] revealed worsening of lung nodules, consistent with progression and inflammatory changes in his lung, Opdivo was discontinued. 04/10/19 he started single agent taxotere (after he went for a second opinion at [facility]), had [address] CAP 05/25/19 revealed evidence of disease progression,the inflammatory changes in his lung had resolved. Pt was feeling better off treatment. Saw Dr. Shell on 06/05, they discussed clinical trial, single agent gemzar and comfort. Patient was seen by Radiation Oncologist Dr. Lala, there are plans for palliative radiation. Patient states that on Wednesday he had progressive difficulty in breathing, cough, low-grade fever, general malaise and weakness. He denied rigors, sore throat, earache, hemoptysis, nausea, vomiting, abdominal pain or cramping, dysuria, hematuria, diarrhea, constipation, swelling in the legs. He is ambulatory. He feels better than he did on admit. Review of Systems 14 point review of systems is negative except as stated in HPI Past Medical History Past Medical History: Cancer, COPD, Hypertension Additional Past Medical History / Comment(s): 2018 diagnosed with R lung squamous cell [id number] IV/tx with chemo/radiation, immunot herapy/opdivo and vyvanse, hemoptysis, pneumonia with sepsis, past HTN-no longer on med, increased heart rate, occasionall lower leg edema, gastritis, diverticular disease. History of Any Multi-Drug Resistant Organisms: None Reported Past Surgical History: Cholecystectomy, Orthopedic Surgery Additional Past Surgical History / Comment(s): Bronchoscopies/biopsies, EGD, colonoscopy, L knee ACL repair, bilateral knee arthroscopies, left great toe surgery-has plate, egd Past Anesthesia/Blood Transfusion Reactions: No Reported Reaction Smoking Status: Former smoker - Past Family History Mother Family Medical History: Cancer Additional Family Medical History / Comment(s): Mother had throat cancer, she was a smoker. Sister(s) Family Medical History: Cancer Additional Family Medical History / Comment(s): Sister had lung cancer. She was a smoker. Father Family Medical History: Diabetes Mellitus Medications and Allergies Home Medications Medication Instructions Recorded Confirmed Type Mirtazapine 30 mg PO HS 07/06/15 06/20/19 History Omeprazole [PriLOSEC] 20 mg PO DAILY 02/03/16 06/20/19 History FLUoxetine HCL [PROzac] 20 mg PO DAILY 12/23/17 06/20/19 History Furosemide [Lasix] 20 mg PO DAILY 09/13/18 06/20/19 History Buprenorphine HCl/Naloxone HCl 1 film SL DAILY 03/03/19 06/20/19 History [Suboxone 2 mg-0.5 mg Sl Film] Losartan Potassium 100 mg PO DAILY 06/20/19 06/20/19 History Metoprolol Succinate (ER) [Toprol 50 mg PO DAILY 06/20/19 06/20/19 History Xl] Promethazine HCl/Codeine 5 ml PO Q6H PRN 06/20/19 06/20/19 History [Promethazine-Codeine Syrup] clonazePAM [KlonoPIN] 1 mg PO BID 06/20/19 06/20/19 History Allergies Allergy/AdvReac Type Severity Reaction Status Date / Time naproxen sodium [From Aleve] Allergy Anaphylaxis Verified 06/20/19 09:34 venom-honey bee Allergy Anaphylaxis Verified 06/20/19 09:34 [bee venom (honey bee)] Physical Exam Vitals: Vital Signs Temp Pulse Pulse Pulse Resp BP BP 06/21/19 05:52 97.5 F L 87 18 98/58 06/20/19 21:06 97.8 F 83 20 100/62 06/20/19 20:52 80 18 06/20/19 20:43 84 18 06/20/19 20:42 84 16 06/20/19 20:31 82 16 06/20/19 17:22 98.7 F 82 18 94/60 06/20/19 16:50 68 90/58 06/20/19 16:07 82/58 06/20/19 15:17 75 81/51 06/20/19 12:49 98.3 F 76 16 91/53 06/20/19 11:13 84 06/20/19 11:01 88 06/20/19 08:35 78 110/70 Pulse Ox 06/21/19 05:52 93 L 06/20/19 21:06 96 06/20/19 20:52 06/20/19 20:43 06/20/19 20:42 06/20/19 20:31 06/20/19 17:22 95 06/20/19 16:50 06/20/19 16:07 06/20/19 15:17 06/20/19 12:49 98 06/20/19 11:13 06/20/19 11:01 06/20/19 08:35 - Constitutional laying flat in bed General appearance: average body habitus, cooperative, no acute distress - EENT Eyes: anicteric sclerae, EOMI ENT: hearing grossly normal, normal oropharynx - Neck Neck: no lymphadenopathy - Respiratory Respiratory: bilateral: diminished (bronchial breath sounds in periphery) - Cardiovascular Rhythm: regular Heart sounds: normal: S1, S2 Abnormal Heart Sounds: no systolic murmur, no diastolic murmur, no rub, no S3 Gallop, no S4 Gallop, no click, no other leg Peripheral Edema: bilateral: None - Gastrointestinal General gastrointestinal: hepatomegaly (2 FB below lateral costal margin with deep inspiration), soft - Integumentary Integumentary: normal turgor - Neurologic Neurologic: CNII-XII intact - Musculoskeletal Musculoskeletal: strength equal bilaterally - Psychiatric Psychiatric: A&O x's 3, appropriate affect, intact judgment & insight Results CBC & Chem 7: 06/21/19 08:25 06/21/19 08:25 Labs: Abnormal Lab Results - Last 24 Hours (Table) 06/20/19 06/20/19 06/21/19 Range/Units 17:19 21:00 07:20 POC Glucose (mg/dL) 227 H 191 H 163 H (75-99) mg/dL Microbiology - Last 24 Hours (Table) 06/20/19 20:56 Gram Stain - Preliminary Sputum Sputum Culture - Preliminary 06/19/19 23:18 Blood Culture - Preliminary Blood No Growth after 24 hours Chest x-ray: report reviewed CT scan - chest: report reviewed Assessment and Plan (1) Pneumonia Narrative/Plan: Patient is currently on treatment for pneumonia. He feels better since admissio n. Infectious Disease and Pulmonary are following the patient, defer mgmt of the same. Current Visit: Yes Status: Acute Priority: High Code(s): J18.9 - PNEUMONIA, UNSPECIFIED ORGANISM SNOMED Code(s): 746295077 (2) Squamous cell lung cancer Narrative/Plan: Unfortunately, patient recently had progression of disease in known areas of malignancy. His systemic treatment options are limited to clinical trial, single agent Gemzar (very small amount of benefit felt to be derived from single agent gemzar), comfort measures. Pt has opted for further systemic treatment at this time. He is going to recieve local treatment with palliative XRT with Dr. Lala. Resolution of his current condition will put him in better shape to proceed with XRT. He will f/u with Dr. Lala after discharge, Dr. Sumaya WILLSON. Current Visit: No Status: Chronic Priority: Medium Code(s): C34.90 - MALIGNANT NEOPLASM OF UNSP PART OF UNSP BRONCHUS OR LUNG SNOMED Code(s): 155732874
[2019-06-21 11:41] LABS: Glucose,Whole Blood 199 mg/dL (75-99)
--- NOTE | 2019-06-21 15:28 | CONS ---
CONSULTATION PULMONARY/CRITICAL CARE CONSULTATION: DATE OF SERVICE: 06/21/2019 REASON FOR CONSULTATION: Shortness of breath. This is a 58-year-old male, well known to our service. The patient has a history of advanced lung cancer, and has a history of COPD. His COPD is quite severe, stage III by GOLD classification. The patient was admitted through the emergency room on June 19 with complaints of increasing shortness of breath, cough, fever, chest congestion and phlegm production. The phlegm had a brownish color to it. There was no blood. The patient denied any chest pain or pressure. There was no nausea, vomiting or diarrhea. The patient did not have any genitourinary complaints. Lungs the patient sees my partner Dr. Montano for his COPD and lung cancer. The patient also sees Dr. Shell as well. The patient was first diagnosed back in December 2017. He had locally advanced non-small cell lung cancer, squamous cell type. He apparently at that time was complaining of cough and he was found to have a 5 cm right hilar mass. On endoscopy, he was noted to have narrowing of the right lower lobe bronchus along with subcarinal adenopathy. On December 2017, he underwent bronchoscopy. He was found to have endobronchial tumor involving the right upper lobe bronchus involving the secondary kasandra the upper lobe and intermedius bronchus. Transbronchial biopsy was positive for squamous cell carcinoma. A PET scan was also done in December 2017. The patient had significant retrocaval, pretracheal and left hilar nodes. Brain MR was negative. He received 33 treatments of radiation and chemotherapy with cisplatin and FLOOR COVERING CONTRACTOR-16. He was started on maintenance immunotherapy initially with Imfinzi but developed pneumonitis and then was switched over to Opdivo. He also had a reaction to that. Currently, Dr. Shell tells him that he has no other options as it relates to chemotherapy, but apparently Dr. Montesinos in Radiation Oncology is willing to again give him some radiation to the lung. That has not been actually set up as yet, but they have talked about it. The patient is feeling much better now. He likely states that he might be discharged in next day or 2, but he is not sure. His symptoms have improved. MEDICATIONS: Reviewed. He is on mirtazapine, Prilosec, Prozac, Lasix, Motrin, Tylenol, Suboxone, Vyvanse, losartan, and Klonopin. He has also uses albuterol inhaler, metoprolol and prednisone. ALLERGIES: NAPROXEN and BEE STINGS. MEDICAL HISTORY: Includes COPD, which is quite severe with an FEV1 that is in the range of 41%. In addition, he has a history of hypertension, metastatic stage IV lung cancer, as well as gastroesophageal reflux disease, and chronic pain syndrome. He also has a history of hypertension. SURGICAL HISTORY: Includes bronchoscopy with biopsy, left big toe surgery, EGD, and cholecystectomy. SOCIAL HISTORY: Positive for previous tobacco use. Denies any alcohol use or illicit drug use. FAMILY HISTORY: Positive for mother with throat cancer, a sister with lung cancer and a father with diabetes. REVIEW OF SYSTEMS: CONSTITUTIONAL: Weakness. NEUROLOGIC: Negative. HEENT: Negative. CARDIOVASCULAR: Negative. PULMONARY: Shortness of breath, chest tightness, wheezing, cough. chest congestion and phlegm production which is brown. GI: Negative. : Negative. RHEUMATOLOGIC: Negative. IMMUNOLOGIC: Negative. ENDOCRINOLOGIC: Negative. DERMATOLOGIC; Negative. Current vital signs are reviewed. His temperature is 97.5, heart rate 84, respiratory rate 18, blood pressure 98/58 mean 71, 3 L saturation 93%. GENERAL: Appears in no acute distress. HEENT: Examination is grossly unremarkable. Mucous membranes are moist. NECK: Supple, full range of motion. No adenopathy or thyromegaly. Neck veins are flat. CARDIOVASCULAR: Examination reveals regular rhythm and rate. Heart rate mid 80s. S1, S2 normal. Heart sounds are distant. LUNGS: Reveal some coarse rhonchi and wheezes. Breath sounds are diminished. There is prolongation. Adventitious lung sounds are more prominent on forced maneuver. No crackles. His cough is wet and congested sounding. ABDOMEN: Soft, bowel sounds are heard. EXTREMITIES: Intact. No cyanosis, clubbing, or edema. SKIN: Without rash. NEUROLOGIC: Examination is brief but nonfocal. LABS: Reviewed. White count 9.3, hemoglobin 11.5, hematocrit 36.7, platelet count 308,000. Sodium, potassium normal. Chloride is 108, CO2 is 23, anion gap is 8. BUN and creatinine were 22 and 0.90. Microbiologic studies are thus far negative. He had a chest x-ray on June 19 which showed bilateral spiculated infiltrates at the pulmonary teresa consistent with his prior diagnosis of lung cancer. A CT angiogram was done on 06/20, which showed no evidence of pulmonary embolism. There is bilateral lower lobe pulmonary masses consistent with cancer/tumor. He also had extensive perihilar pulmonary infiltrates as well as osteoblastic changes in T8 vertebra which could relate to metastatic disease. Medications are reviewed. Currently, the patient is on albuterol, Pulmicort, formoterol, DuoNeb, Levaquin, and Solu-Medrol. The patient is also on Zosyn. ASSESSMENT: 1. Chronic obstructive pulmonary disease exacerbation complicated by purulent tracheobronchitis, doubt bronchopneumonia. 2. Severe chronic obstructive pulmonary disease, GOLD stage III. 3. History of metastatic non-small cell lung cancer, squamous cell type, status post 33 rounds of radiation, chemotherapy with cisplatin and FLOOR COVERING CONTRACTOR-16, and attempted maintenance immunotherapy with Imfinzi and Opdivo, both of which caused a reaction. 4. Previous history of tobacco use. 5. History of hypertension. 6. History of anxiety/depression. PLAN: The patient is doing well. He is on appropriate medications. The patient would like to be discharged in next 24-48 hours. He should go home on an oral antibiotic for short course and also prednisone with a burst and taper. He should follow up with his primary doctor, but also follow up with my partner, Dr. Montano in the near future. The patient is apparently planning some additional radiation therapy with Dr. Pérez Montesinos from Radiation Oncology here at [facility] in [place]. That has not yet been officially scheduled but is hopefully going to take place once he is over this episode. Additional recommendations and suggestions are forthcoming. MMODL / IJN: [id number] / MTDD
[2019-06-21 17:06] LABS: Glucose,Whole Blood 189 mg/dL (75-99)
--- NOTE | 2019-06-21 19:50 | PN ---
PROGRESS NOTE DATE OF SERVICE: 06/21/2019 This 58-year-old gentleman was admitted with COPD acute exacerbation as well as bilateral perihilar pneumonia, is being closely monitored. No chest pain. No palpitations. No fever. EXAM: Alert and oriented x3. The pulse is 102. Blood pressure 104/60, respirations 17, temperature 97.6, pulse ox 90% on room air. HEENT: Conjunctivae normal. NECK: No JVD. CARDIOVASCULAR: S1, S2 muffled. RESPIRATORY: Breath sounds diminished in the bases. A few scattered rhonchi and crackles. ABDOMEN is soft, nontender. LEGS are no edema, no swelling. CENTRAL NERVOUS SYSTEM: No focal deficits. LABS: WBC 9.3, hemoglobin 11.5. ASSESSMENT: 1. Chronic obstructive pulmonary disease acute exacerbation with bilateral perihilar pneumonia possibly gram-negative. 2. Anemia, normocytic anemia of malignancy. 3. Stage IV squamous cell carcinoma with metastasis. 4. Hyponatremia. 5. Elevated D-dimer without any evidence of pulmonary embolus. 6. History of chronic obstructive pulmonary disease. 7. History of hemoptysis. 8. History of pneumonia and sepsis. 9. History of hypertension. 10.History of gastritis. 11.History of diverticular disease. 12.History of cholecystectomy. 13.History of degenerative joint disease and ACL repair. 14.Anxiety/depression. 15.Remote history of nicotine dependence. RECOMMENDATIONS AND DISCUSSION: This 58-year-old gentleman who presented with multiple complex medical issues, we will monitor the patient closely, continue the current medications, continue the antibiotics. Continue the bronchodilators. Closely follow with Pulmonary and Hematology/ Oncology, Infectious Disease. Further recommendations to follow. Guarded prognosis. MMODL / IJN: [id number] /
[2019-06-21 20:40] LABS: Glucose,Whole Blood 243 mg/dL (75-99)
[2019-06-21] MEDS: MIRTAZAPINE 15 MG TAB PO SCH (21:35)
--- NOTE | 2019-06-21 22:58 | PN ---
PROGRESS NOTE DATE OF SERVICE: 06/21/2019. REASON FOR FOLLOWUP: Pneumonia. INTERVAL HISTORY: The patient is currently afebrile. The patient is breathing comfortably. The patient continues to have a cough, though decreased in intensity. No nausea, no vomiting. No abdominal pain. No diarrhea. PHYSICAL EXAMINATION: Blood pressure 104/64 with a pulse of 92, temperature 97.7. He is 98% on 2 L nasal cannula. General description is a middle-aged male lying in bed in no distress. RESPIRATORY SYSTEM: Unlabored breathing. Coarse breath sounds bilaterally. HEART: S1, S2. Regular rate and rhythm. ABDOMEN: Soft. No tenderness. LABS: Hemoglobin sputum culture currently pending. Blood culture so far negative. DIAGNOSTIC IMPRESSION AND PLAN: Patient with presentation to hospital source is likely Patient is currently covered with Zosyn and Levaquin. That will be continued, waiting for the culture to finalize. Continue with supportive care. MMODL / IJN: [id number] /
[2019-06-22] MEDS: methylPREDNISolone SOD SUCCI 125 MG/2 ML VIAL IV SCH ×3 (00:13→12:28)
[2019-06-22] MEDS: SODIUM CHLORIDE 0.9% 1,000 ML IV SCH (02:24)
[2019-06-22] MEDS: LEVOFLOXACIN 750 MG TAB PO SCH (02:25)
[2019-06-22] MEDS: PIPERACILLIN-TAZOBACTAM 3.375 GM in SODIUM CHLORIDE 0.9% 100 ML IVPB SCH ×2 (02:25→08:56)
[2019-06-22 06:54] VITALS: RESP 16
[2019-06-22 06:58] LABS: Glucose,Whole Blood 151 mg/dL (75-99)
[2019-06-22] MEDS: BUDESONIDE 1 MG/2 ML NEBU INHALATION SCH (07:13)
[2019-06-22] MEDS: IPRATROPIUM-ALBUTEROL 3 ML NEB INHALATION SCH ×3 (07:13→16:20)
[2019-06-22] MEDS: FORMOTEROL FUMARATE 20 MCG/2 ML NEBU INHALATION SCH (07:13)
[2019-06-22] MEDS: INSULIN ASPART (NovoLOG) 100 UNIT/ML VIAL SQ SCH ×2 (08:03→12:29)
[2019-06-22] MEDS: NALOXONE HCL SUBLINGUAL SCH (08:04)
[2019-06-22] MEDS: BUPRENORPHINE HCL SUBLINGUAL SCH (08:04)
[2019-06-22] MEDS: FLUoxetine HCL 20 MG CAP PO SCH (08:43)
[2019-06-22] MEDS: METOPROLOL SUCCINATE (ER) 25 MG TAB.ER.24H PO SCH (08:44)
[2019-06-22] MEDS: FUROSEMIDE 20 MG TAB PO SCH (08:44)
[2019-06-22] MEDS: clonazePAM 1 MG TAB PO SCH (08:44)
[2019-06-22] MEDS: PANTOPRAZOLE 40 MG TABLET PO SCH (08:45)
[2019-06-22] MEDS: LOSARTAN 50 MG TAB PO SCH (08:46)
[2019-06-22] MEDS: Lisdexamfetamine Dimesylate [Vyvanse] 40 MG PO SCH (08:47)
[2019-06-22] MEDS: HEPARIN SODIUM,PORCINE 5,000 UNIT/ML 1 ML VIAL SQ SCH (08:47)
[2019-06-22 09:59] LABS: Basophils % (A) 0 %; Eosinophils % (A) 0 %; HCT 36.7 % (39.0-53.0); HGB 11.4 gm/dL (13.0-17.5); Hypochromasia Marked; Lymphocytes # (A) 0.3 k/uL (1.0-4.8); Lymphocytes % (A) 3 %; MCH 27.7 pg (25.0-35.0); MCHC 31.1 g/dL (31.0-37.0); MCV 89.2 fL (80.0-100.0); Mean Platelet Volume 7.5; Monocytes # (A) 0.2 k/uL (0-1.0); Monocytes % (A) 2 %; Neutrophils % (A) 95 %; Platelet Count 333 k/uL (150-450); RBC 4.12 m/uL (4.30-5.90); RDW 15.4 % (11.5-15.5); WBC 11.7 k/uL (3.8-10.6)
[2019-06-22 10:01] LABS: African American GFR (CKD) >90 (>60 ml/min/1.73 sqM); Anion Gap 8 mmol/L; Blood Urea Nitrogen 16 mg/dL (9-20); Calcium 8.9 mg/dL (8.4-10.2); Carbon Dioxide 25 mmol/L (22-30); Chloride 109 mmol/L (98-107); Glucose 232 mg/dL (74-99); Non-African American GFR(CKD) >90 (>60 ml/min/1.73 sqM); Sodium 142 mmol/L (137-145)
[2019-06-22 10:52] VITALS: BP 117/73; TEMP 97.8
--- NOTE | 2019-06-22 11:03 | P.PN ---
Subjective Progress Note Date: 06/22/19 Principal diagnosis: Difficulty in breathing, pneumonia, squamous cell lung cancer In follow-up today patient has complaints of persistent shortness of breath, somewhat better than that, he is coughing and expectorating copious, mostly clear sputum, no hemoptysis. No recent fevers, he does not feel he tolerates steroids very well. He is not in any pain, no recent fever, nausea, diarrhea. Objective - Vital Signs Vital signs: Vital Signs Temp 97.8 F 06/22/19 10:51 Pulse 96 06/22/19 10:51 Resp 16 06/22/19 10:51 BP 117/73 06/22/19 10:51 Pulse Ox 94 L 06/22/19 10:51 Intake & Output 06/21/19 06/22/19 06/22/19 18:59 06:59 18:59 Intake Total 260 Balance 260 Intake: IV 260 Piperacillin-Tazobactam 3 100 .375 gm In Sodium Chloride 0.9% 100 ml @ 25 mls/hr IVPB Q8H DEL Rx#: [id number] Sodium Chloride 0.9% 1, 160 000 ml @ 20 mls/hr IV . Q24H DEL Rx#:[id number] Other: Voiding Method Urinal Urinal # Voids 2 5 - Constitutional Constitutional Comment(s): Flushed complexion General appearance: Present: cooperative, mild distress, obese - EENT Eyes: Present: anicteric sclerae, EOMI - Respiratory Respiratory: bilateral: CTA, diminished - Cardiovascular Heart sounds: normal: S1, S2 - Gastrointestinal General gastrointestinal: Present: normal bowel sounds, soft - Integumentary Integumentary: Present: flushed - Neurologic Neurologic: Present: CNII-XII intact - Musculoskeletal Musculoskeletal: Present: strength equal bilaterally - Psychiatric Psychiatric: Present: A&O x's 3, appropriate affect, intact judgment & insight - Labs CBC & Chem 7: 06/22/19 09:32 06/22/19 09:32 Labs: Abnormal Lab Results - Last 24 Hours (Table) 06/21/19 06/21/19 06/21/19 Range/Units 11:39 16:58 20:38 WBC (3.8-10.6) k/uL RBC (4.30-5.90) m/uL Hgb (13.0-17.5) gm/dL Hct (39.0-53.0) % Neutrophils # (1.3-7.7) k/uL Lymphocytes # (1.0-4.8) k/uL Chloride (98-107) mmol/L Glucose (74-99) mg/dL POC Glucose (mg/dL) 199 H 189 H 243 H (75-99) mg/dL 06/22/19 06/22/19 06/22/19 Range/Units 06:56 09:32 09:32 WBC 11.7 H (3.8-10.6) k/uL RBC 4.12 L (4.30-5.90) m/uL Hgb 11.4 L (13.0-17.5) gm/dL Hct 36.7 L (39.0-53.0) % Neutrophils # 11.0 H (1.3-7.7) k/uL Lymphocytes # 0.3 L (1.0-4.8) k/uL Chloride 109 H (98-107) mmol/L Glucose 232 H (74-99) mg/dL POC Glucose (mg/dL) 151 H (75-99) mg/dL Microbiology - Last 24 Hours (Table) 06/19/19 23:18 Blood Culture - Preliminary Blood No Growth after 48 hours 06/20/19 20:56 Gram Stain - Preliminary Sputum Sputum Culture - Preliminary Assessment and Plan (1) Pneumonia Narrative/Plan: Patient is currently on treatment for pneumonia, stable symptoms, breathing slightly better, has cough and expectoration. Infectious Disease and Pulmonary are following the patient, defer mgmt of the same. Current Visit: Yes Status: Acute Priority: High Code(s): J18.9 - PNEUMONIA, UNSPECIFIED ORGANISM SNOMED Code(s): 475880107 (2) Squamous cell lung cancer Narrative/Plan: Unfortunately, patient recently had progression of disease in known areas of malignancy. His systemic treatment options are limited to clinical trial, single agent Gemzar (very small amount of benefit felt to be derived from single agent gemzar), comfort measures. Pt has opted for no further systemic treatment at this time. He is going to receive local treatment with palliative XRT with Dr. Lala. Resolution of his current condition will put him in better shape to proceed with XRT. He will f/u with Dr. Spike after discharge, Dr. Sumaya PRN. We discussed the high likelihood of recurrent infections secondary to his lung cancer (tissue breakdown, blockage of airways and blood vessels from tumor). Patient stated that he was told previously that steroids don't work on him. I explained to him that the particular situation he was in at that time, on immunotherapy, being treated for pneumonitis with little improvement, steroid did not have the impact on him that they should have. His current situation is such that steroids are being used for airway inflammation from infection. He agreed to continue them at this time. When patient spoke with Dr. Shell about his prognosis patient was told up to 6 months. Current Visit: No Status: Chronic Priority: Medium Code(s): C34.90 - MALIGNANT NEOPLASM OF UNSP PART OF UNSP BRONCHUS OR LUNG SNOMED Code(s): 190943186 Time with Patient: Greater than 30 (Counseling and coordinating care)
[2019-06-22 11:41] VITALS: PULSE 100
[2019-06-22 11:59] LABS: Glucose,Whole Blood 190 mg/dL (75-99)
--- NOTE | 2019-06-22 14:16 | P.PN ---
Subjective Progress Note Date: 06/22/19 Principal diagnosis: Shortness of breath On 06/22/2019 patient seen in follow-up on general medical floor. He states he is breathing easier today, less dyspneic and bronchospastic, still has some scattered rhonchi, but overall doing better. Room air pulse ox is 94%, afebrile, hemodynamically patient is stable. Patient has been treated with empiric antibiotics in the form of Levaquin and Zosyn, Pulmicort, Perforomist, and steroids, he is improving, and patient states he would like to go home today. From pulmonary perspective patient is stable for discharge home with ou tpatient follow-up. Objective - Vital Signs Vital signs: Vital Signs Temp 97.8 F 06/22/19 10:51 Pulse 100 06/22/19 11:39 Resp 16 06/22/19 10:51 BP 117/73 06/22/19 10:51 Pulse Ox 94 L 06/22/19 10:51 Intake & Output 06/21/19 06/22/19 06/22/19 18:59 06:59 18:59 Intake Total 260 100 Balance 260 100 Intake: IV 260 100 Piperacillin-Tazobactam 3 100 100 .375 gm In Sodium Chloride 0.9% 100 ml @ 25 mls/hr IVPB Q8H DEL Rx#: [id number] Sodium Chloride 0.9% 1, 160 000 ml @ 20 mls/hr IV . Q24H DEL Rx#:[id number] Other: Voiding Method Urinal Urinal # Voids 2 5 - Exam GENERAL EXAM: Alert, very pleasant, 58-year-old white male, on room air, with a pulse ox 94% comfortable in no apparent distress. HEAD: Normocephalic/atraumatic. EYES: Normal reaction of pupils, equal size. Conjunctiva pink, sclera white. NOSE: Clear with pink turbinates. THROAT: No erythema or exudates. NECK: No masses, no JVD, no thyroid enlargement, no adenopathy. CHEST: No chest wall deformity. Symmetrical expansion. LUNGS: Equal air entry with scattered rhonchi no wheezes CVS: Regular rate and rhythm, normal S1 and S2, no gallops, no murmurs, no rubs ABDOMEN: Soft, nontender. No hepatosplenomegaly, normal bowel sounds, no guarding or rigidity. EXTREMITIES: No clubbing, no edema, no cyanosis, 2+ pulses and upper and lower extremities. MUSCULOSKELETAL: Muscle strength and tone normal. SPINE: No scoliosis or deformity SKIN: No rashes CENTRAL NERVOUS SYSTEM: Alert and oriented -3. No focal deficits, tone is normal in all 4 extremities. PSYCHIATRIC: Alert and oriented -3. Appropriate affect. Intact judgment and insight. - Labs CBC & Chem 7: 06/22/19 09:32 06/22/19 09:32 Labs: Abnormal Lab Results - Last 24 Hours (Table) 06/21/19 06/21/19 06/22/19 Range/Units 16:58 20:38 06:56 WBC (3.8-10.6) k/uL RBC (4.30-5.90) m/uL Hgb (13.0-17.5) gm/dL Hct (39.0-53.0) % Neutrophils # (1.3-7.7) k/uL Lymphocytes # (1.0-4.8) k/uL Chloride (98-107) mmol/L Glucose (74-99) mg/dL POC Glucose (mg/dL) 189 H 243 H 151 H (75-99) mg/dL 06/22/19 06/22/19 06/22/19 Range/Units 09:32 09:32 11:58 WBC 11.7 H (3.8-10.6) k/uL RBC 4.12 L (4.30-5.90) m/uL Hgb 11.4 L (13.0-17.5) gm/dL Hct 36.7 L (39.0-53.0) % Neutrophils # 11.0 H (1.3-7.7) k/uL Lymphocytes # 0.3 L (1.0-4.8) k/uL Chloride 109 H (98-107) mmol/L Glucose 232 H (74-99) mg/dL POC Glucose (mg/dL) 190 H (75-99) mg/dL Microbiology - Last 24 Hours (Table) 06/19/19 23:18 Blood Culture - Preliminary Blood No Growth after 48 hours Assessment and Plan Plan: Assessment: #1. Acute exacerbation of chronic obstructive pulmonary disease complicated by purulent tracheobronchitis, doubt bronchopneumonia #2. Severe chronic obstructive pulmonary disease, gold stage III #3. History of metastatic non-small cell lung carcinoma, squamous cell type, status post 33 rounds of radiation, chemotherapy with cisplatin and [employer] 16, and attentive maintenance immunotherapy with him Karol and of D from both of which caused a reaction #4. Previous history of tobacco use #5. History of hypertension #6. History of anxiety/depression Plan: Patient is doing well, clinically stable, he states his breathing is improving, his been treated with empiric antibiotics, steroids, and breathing treatments, no fever or chills overnight, sputum cultures pending, complaints of chest pain, no hemoptysis. Patient is requesting to go home today. On the respective patient is stable for discharge home today on prednisone taper and antibiotics, with outpatient follow-up with Dr. Montano in the near future I performed a history & physical examination of the patient and discussed their management with my nurse practitioner, Rowena Ruiz. I reviewed the nurse practitioner's note and agree with the documented findings and plan of care. Lung sounds are positive for diminished breath sounds few scattered rhonchi. The findings and the impression was discussed with the patient. I attest to the documentation by the nurse practitioner. Time with Patient: Less than 30
--- NOTE | 2019-06-22 15:42 | PN ---
PROGRESS NOTE DATE OF SERVICE: 06/22/2019. REASON FOR FOLLOWUP: Pneumonia. INTERVAL HISTORY: The patient is currently afebrile. The patient has been breathing comfortably. The patient denies having any chest pain. Cough has decreased in intensity and has been dry in nature. No nausea, no vomiting, no abdominal pain, no diarrhea. PHYSICAL EXAMINATION: Blood pressure 117/73 with a pulse of 96, temperature 97.8. He is 94% on room air. General description is a middle-aged male lying in bed in no distress. RESPIRATORY SYSTEM: Unlabored breathing with decreased intensity of breath sounds. No wheeze. HEART: S1, S2. Regular rate and rhythm. ABDOMEN: Soft. No tenderness. LABS: Hemoglobin 11.4, white count 11.7, creatinine 0.83. Sputum culture so far negative. Blood culture negative. DIAGNOSTIC IMPRESSION AND PLAN: Patient admitted to hospital with a fever with a component of pneumonia. Concern was for possible Gram-negative. However, sputum has been negative for any resistant pathogen so far. Patient responded to Zosyn and Levaquin. Would recommend finishing therapy with oral Levaquin for about a week and close outpatient followup. Plan of care was discussed with the nurse practitioner for the admitting team. MMODL / IJN: [id number] /
[2019-06-23] MEDS ORDERED: predniSONE 10 MG TAB PO SCH (09:00)
--- NOTE | 2019-06-23 09:22 | P.DS ---
Providers Date of admission: 06/20/19 02:07 Expected date of discharge: 06/22/19 Attending physician: Erica Velásquez Consults: 06/20/19 14:45 Consult Physician Routine Consulting Provider: Mario Mustafa Consult Reason/Comments: pneumonia Do you want consulting provider notified?: Yes Consult Physician Routine Consulting Provider: Perfecto Riggins Consult Reason/Comments: malignancy Do you want consulting provider notified?: Yes 06/20/19 15:21 Consult Physician Routine Consulting Provider: Karlos Ordonez Consult Reason/Comments: pneumonia Do you want consulting provider notified?: Yes Primary care physician: Damien Leyva [facility] Course: Final diagnosis Chronic obstructive pulmonary disease acute exacerbation with bilateral perihilar pneumonia possibly gram-negative Anemia, normocytic anemia of malignancy 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 Damien leyva in the outpatient setting upon discharge. Patient will also be following up with pulmonary along with hematology/oncology in the outpatient setting as well. Will continue on a short course of oral antibiotics in the form of Levaquin along with a prednisone taper. Total time taken is 35 minutes. History of present illness This is a 58-year-old male who was recently admitted with COPD acute exacerbation as well as bilateral perihilar pneumonia and was being closely monitored. Multiple medical consultations were following. Patient states he is feeling better and would like to go home today. Blood and sputum cultures remain negative thus far and will be continued on a short course of oral antibiotics in the form of Levaquin along with a prednisone taper in the outpatient setting. Patient will be following up with pulmonary along with oncology in the outpatient setting. Currently patient denies any chest pain, worsening shortness of breath, or palpitations. Patient is afebrile. Patient denies any nausea or vomiting and is been tolerating diet. Guarded prognosis. On exam vital signs are stable. Temp is 97.8F, pulse is 96, respirations are 16, blood pressure 117/73, oxygen saturation is 94% on room air. Cardio S1, S2 are muffled. Respiratory system shows diminished breath sounds at the bases with some scattered crackles and mild wheezing noted on expiration. Abdomen is soft and nontender. Nervous system shows no focal deficits. Please refer to medication reconciliation sheet for a list of medications. Patient Condition at Discharge: Stable Plan - Discharge Summary Discharge Rx Participant: No New Discharge Prescriptions: New Levofloxacin [Levaquin] 500 mg PO DAILY 7 Days #7 tab predniSONE 10 mg PO DIRECTED #20 tab Metoprolol Succinate (ER) [Toprol XL] 25 mg PO DAILY 30 Days #30 tab.er.24h Continue Mirtazapine 30 mg PO HS Omeprazole [PriLOSEC] 20 mg PO DAILY FLUoxetine HCL [PROzac] 20 mg PO DAILY Furosemide [Lasix] 20 mg PO DAILY Buprenorphine HCl/Naloxone HCl [Suboxone 2 mg-0.5 mg Sl Film] 1 film SL DAILY Promethazine HCl/Codeine [Promethazine-Codeine Syrup] 5 ml PO Q6H PRN PRN Reason: Cough Losartan Potassium 100 mg PO DAILY clonazePAM [KlonoPIN] 1 mg PO BID Discontinued Metoprolol Succinate (ER) [Toprol Xl] 50 mg PO DAILY Discharge Medication List Mirtazapine 30 mg PO HS 07/06/15 [History] Omeprazole [PriLOSEC] 20 mg PO DAILY 02/03/16 [History] FLUoxetine HCL [PROzac] 20 mg PO DAILY 12/23/17 [History] Furosemide [Lasix] 20 mg PO DAILY 09/13/18 [History] Buprenorphine HCl/Naloxone HCl [Suboxone 2 mg-0.5 mg Sl Film] 1 film SL DAILY 03/03/19 [History] Losartan Potassium 100 mg PO DAILY 06/20/19 [History] Promethazine HCl/Codeine [Promethazine-Codeine Syrup] 5 ml PO Q6H PRN 06/20/19 [History] clonazePAM [KlonoPIN] 1 mg PO BID 06/20/19 [History] Levofloxacin [Levaquin] 500 mg PO DAILY 7 Days #7 tab 06/22/19 [Rx] Metoprolol Succinate (ER) [Toprol XL] 25 mg PO DAILY 30 Days #30 tab.er.24h 06/22/19 [Rx] predniSONE 10 mg PO DIRECTED #20 tab 02/13/20 [Rx] Follow up Appointment(s)/Referral(s): Damien Leyva DO [Primary Care Provider] - 1-2 days (Office will call you with appt date and time) Patient Instructions/Handouts: COPD (Chronic Obstructive Pulmonary Disease) (DC), Community Acquired Pneumonia (DC) Activity/Diet/Wound Care/Special Instructions: Activity Limited until follow-up Primary care provider upon discharge Continue with antibiotics until finished Continue with prednisone taper until finished Continue current diet Discharge Disposition: HOME SELF-CARE
--- NOTE | 2019-06-26 09:25 | CDI ---
Documentation Clarification Form Date: 06/26/19 From: Candelaria Medellin Phone: If you have a question about this query, please contact Kat Reynaga, Car Installations Supervisor at [phone] between 8am and 5pm. Admit Date: 06/20/19 Discharge Date:06/22/19 Patient Name: Hermilo Barnes Visit Number: [id number] ATTENTION: The Clinical Documentation Specialists (CDI) and [facility] Coding Staff appreciate your assistance in clarifying documentation. Please respond to the clarification below the line at the bottom and electronically sign. The CDI & [facility] Coding staff will review the response and follow-up if needed. Please note: Queries are made part of the Legal Health Record. If you have any questions, please contact the author of this message via ITS. Dear Dr. Velásquez The patient presented with COPD exacerbation and perihilar pneumonia possible gram negative. Sepsis is documented in Dr. Ordonez's consult note. History/Risk Factors: Lung CA, pneumonia Clinical Indicators: Fever, tachycardia WBC: 9.7 Lactic acid: 1.3 Blood cultures: No growth Vitals signs on admission: T. 98.1 then 102 1 hour later, P. 110, R. 18, BP 99/55 Treatment: Antibiotics: IV Zosyn IV Bolus: 2 Liter bolus In your professional opinion, please clarify if these findings signify one of the following conditions, whether the condition is POA, and cause, if known: Condition Sepsis ruled out SIRS, without underlying infectious process Sepsis Severe Sepsis Other, please specify Unable to determine Identify the (suspected) organism Sepsis MTDD
== END 2019-06-22 17:13 | disposition home or self-care (01) | DRG 871 ==
LOC: EC 22:29 → 4SSUR 06-20 02:07 → 5NMEDONC 06-20 13:43 → 6NMEDSUR 06-20 14:34
PROVIDERS: ADMIT Hospitalist; ATTEND Hospitalist
DX: A41.9 Sepsis, unspecified organism (principal); J15.6 Pneumonia due to other Gram-negative bacteria; J44.1 Chronic obstructive pulmonary disease with (acute) exacerbation; C34.01 Malignant neoplasm of right main bronchus; C79.9 Secondary malignant neoplasm of unspecified site; C34.11 Malignant neoplasm of upper lobe, right bronchus or lung; E87.1 Hypo-osmolality and hyponatremia; J44.0 Chronic obstructive pulmonary disease with (acute) lower respiratory infection; D63.0 Anemia in neoplastic disease; F32.9 Major depressive disorder, single episode, unspecified; F41.9 Anxiety disorder, unspecified; G89.4 Chronic pain syndrome; I10 Essential (primary) hypertension; K21.9 Gastro-esophageal reflux disease without esophagitis; K57.90 Diverticulosis of intestine, part unspecified, without perforation or abscess without bleeding; M19.90 Unspecified osteoarthritis, unspecified site; E66.9 Obesity, unspecified; Z68.31 Body mass index [BMI] 31.0-31.9, adult; Z79.899 Other long term (current) drug therapy; Z79.52 Long term (current) use of systemic steroids; Z88.6 Allergy status to analgesic agent; Z91.030 Bee allergy status; Z92.3 Personal history of irradiation; Z92.21 Personal history of antineoplastic chemotherapy; Z90.49 Acquired absence of other specified parts of digestive tract; Z87.891 Personal history of nicotine dependence; Z87.01 Personal history of pneumonia (recurrent); Z83.3 Family history of diabetes mellitus; Z80.8 Family history of malignant neoplasm of other organs or systems; Z80.1 Family history of malignant neoplasm of trachea, bronchus and lung
CPT/HCPCS: 36415; 71046; 71275; 80048; 80053; 83605; 83880; 84484; 85025; 85379; 85610; 85730; 87040; 87070; 87205; 87502; 93005; 94640; 94760; 96361; 96365; 96366; 96375; 99285

== ENCOUNTER → 2019-08-14 | Outpatient (CLI) | payer OTHER ==
[2019-08-14 14:23] LABS: African American GFR (CKD) >90 (>60 ml/min/1.73 sqM); Blood Urea Nitrogen 19 mg/dL (9-20); Non-African American GFR(CKD) 82 (>60 ml/min/1.73 sqM)
--- NOTE | 2019-08-15 09:26 | CT ---
EXAMINATION TYPE: CT chest abdomen w con DATE OF EXAM: 08/14/2019 COMPARISON: Chest 06/20/2019 and 03/04/2019. Body CT 05/25/2019 HISTORY: 59 year-old male lung cancer follow up per patient. TECHNIQUE: Contiguous axial scanning of the chest and abdomen following administration of 100 ml Isov ue 300 IV contrast. Delayed images through the kidneys and coronal/sagittal reconstructions performe d. CT DLP: 1225.6 mGycm Automated exposure control for dose reduction was used. FINDINGS: CHEST: Heart normal size without pericardial effusion. Aorta normal caliber with conventional branching anatomy. A 1.1 cm lower right paratracheal lymph node is unchanged. Some increasing mediastinal lymphadenopathy: Subcarinal measuring 1.7 cm versus 1.3 cm, previously. Left hilar measuring 1.3 cm. Lower left paraesophageal measuring up to 2.8 cm versus 1.8 cm, previously. Continued bilateral perihilar volume loss and consolidation likely posttreatment change. However, enlarging bilateral lower lobe pulmonary masses measuring 3.5 and 2.4 cm now (versus 3.1 and 1.6 cm, previously). Enlarging left lower lobe mass currently at 4.5 cm versus 3.8 cm, previously. Enlarging subpleural pulmonary nodule peripheral left midlung and 1.6 cm versus 1.3 cm, previously. Enlarging pleural-based nodule peripheral left midlung, axial image 29 at 1.8 cm. New 1.1 cm anterior medial left midlung pulmonary nodule, axial image 24. Background of moderate centrilobular emphysema. ABDOMEN: No focal liver lesion seen. Portal venous system is patent. No biliary ductal dilatation. Cholecystec fredi clips. Prominent wilbur hepatic lymph node at 1.1 cm is unchanged likely reactive/post inflammatory. Otherwis e, no upper or mid abdominal lymphadenopathy seen. No dilated small bowel, free fluid, or free air. Adrenal glands, kidneys, spleen, and pancreas appear within normal limits. Mild scattered stool. Normal appendix. No pericolonic inflammatory change. Moderate atherosclerotic changes abdominal aorta without aneurysm. Pelvis not imaged. BONES: Degenerative changes mid to lower lumbar spine. Asymmetric left greater than right gynecomastia is un changed. Some stable inferior endplate sclerosis at T8 negative related to degenerative disc disease. No lytic destruction seen. IMPRESSION: 1. FINDINGS CONCERNING FOR DISEASE PROGRESSION WITH ENLARGING BILATERAL LOWER LOBE MASSES (MEASURING UP TO 4.5 CM VERSUS 3.8 CM, PREVIOUSLY BOTH (. ENLARGING MEDIASTINAL AND LEFT HILAR LYMPHADENOPATHY ( UP TO 2.8 CM CURRENTLY VERSUS 1.8 CM, PREVIOUSLY). 2. A FEW ADDITIONAL NEW OR ENLARGING PULMONARY NODULES MEASURING UP TO 1.6 CM. DETAILED ABOVE. 3. COPD WITH MODERATE EMPHYSEMA AND CHRONIC POSTTREATMENT CHANGES IN THE PERIHILAR REGIONS.
== END | disposition home or self-care (01) ==
LOC: RADCTMAIN 13:17
PROVIDERS: ATTEND Radiology Radiation Oncology
DX: C34.11 Malignant neoplasm of upper lobe, right bronchus or lung (principal); J43.9 Emphysema, unspecified; Z92.21 Personal history of antineoplastic chemotherapy; Z87.891 Personal history of nicotine dependence
CPT/HCPCS: 82565; 84520; 71260; 74160; 36415; Q9967

== ENCOUNTER → 2019-10-27 | Outpatient (CLI) | payer OTHER ==
--- NOTE | 2019-10-29 16:48 | CT ---
EXAMINATION TYPE: CT chest w con DATE OF EXAM: 10/27/2019 COMPARISON: 08/14/2019 and 06/20/2019 HISTORY: 59-year-old male Shortness of breath. History of lung cancer. TECHNIQUE: Contiguous axial scanning of the chest after the administration of 100ml mL of Isovue 300. Coronal/sagittal reconstructions performed. CT DLP: 467.3mGycm. Automatic exposure control utilized for a dose reduction. FINDINGS: Heart normal size without pericardial effusion. Aorta normal caliber with conventional arch was a branching anatomy. Stable 1 cm lower right paratracheal lymph node. Enlarging now 2.2 cm subcarinal lymph node, 1.7 cm, previously. Enlarging posterior left hilar lymph node at 1.1 cm currently. Enlarged lower right paraesophageal lymph nodes measuring up to 1.4 cm are unchanged. Otherwise, extensive soft tissue encasement/consolidation of the bilateral teresa appear similar and pr obably in large part relates to posttreatment change. New small left pleural effusion. New pleural-based nodularity overlying the left hemidiaphragm. Enlar ging 2.7 cm pleural-based mass posterolateral left midlung versus 1.8 mm, previously. New/enlarging p leural-based masses along the anterior left apex and anteromedial left upper lobe measuring up to 1.3 cm thick. Aside from the 4.2 cm left lower lobe mass which is not significantly changed in the interval, there are new and enlarging nodules and masses on both sides. For example: - 2 adjacent right lower lobe masses measuring 4.3 and 3.2 cm versus 3.5 and 2.4 cm, previously. - Bilobed posterior left upper lobe nodules with the portion measuring 2.3 x 1.3 cm versus 1.1 x 0.6 cm, previously. - Anteromedial left mid lung 1.4 cm nodule versus 1.1 mm, previously. - Peripheral left midlung 2.3 cm nodule versus 1.6 cm, previously. - Medial basilar left lung mass measures 3.5 x 2.4 cm versus 2.8 mm, previously. Additionally, a few 6 mm small pulmonary nodules are new. Moderate to advanced upper lung emphysema. Visualized upper abdomen shows cholecystectomy clips and clear adrenal glands. Bones: Some old healed left-sided rib fracture deformities. There is new interval margin cortical erosion of the left lateral seventh rib likely secondary to adj acent pleural involvement. IMPRESSION: 1. Bilateral hilar soft tissue encasement/consolidation is largely unchanged though there is slight i nterval enlargement of subcarinal and posterior left hilar lymph nodes currently measuring up to 2.2 cm versus 1.7 cm, previously. 2. Aside from the 4.2 cm left lower lobe mass which is unchanged, there are numerous new and enlargin g nodules and masses on both sides compatible with disease progression as outlined above. 3. Additionally, there are new pleural-based metastases overlying the left hemidiaphragm, enlarging p leural-based lesions at the left apex, and also at the left midlung where there is new inner margin c ortical erosion of the left lateral seventh rib. 4. New small left effusion.
== END | disposition home or self-care (01) ==
LOC: RADCTMAIN 17:08
PROVIDERS: ATTEND Internal Medicine Critical Care Medicine
DX: R91.8 Other nonspecific abnormal finding of lung field (principal); C79.51 Secondary malignant neoplasm of bone; R59.0 Localized enlarged lymph nodes; Z91.030 Bee allergy status; Z88.6 Allergy status to analgesic agent
CPT/HCPCS: 71260; Q9967